=== PATIENT | female | born 1940 | race Caucasian/White ===

== ENCOUNTER 2017-06-07 17:36 | Emergency (ER) | payer MEDICARE, OTHER ==
[2017-06-07 17:48] VITALS: BP 159/86
--- NOTE | 2017-06-07 17:53 | EDM.PDOC ---
ED HPI GENERAL MEDICAL PROBLEM - General Chief Complaint: Gastrointestinal Problem Stated Complaint: BLOOD IN STOOL Time Seen by Provider: 06/07/17 17:53 Source of Information: Reports: Patient History Limitations: Reports: No Limitations - History of Present Illness INITIAL COMMENTS - FREE TEXT/NARRATIVE: 76-year-old female presents to the ED with chief complaint of bleeding per rectum since bowel movement at noon today. She states that when she wiped there was fresh blood on the toilet paper and subsequently she noticed that it continued to ooze from the rectum. She therefore had to put a pad on and she states it's not much but it's enough that it would stain her underwear. Patient states that she had a colonoscopy by Dr. Brooks in December 2014 and no abnormalities were identified at that time. She appreciates that the stools have been more constipated as of late and she's been taking prunes to soften the bowel. She states the [place] that she had a noon today was not painful or hard to pass. She's not sure she's had a problems with hemorrhoids in the past. She is not taking any blood thinners only and add baby aspirin daily. He denies any pain in her abdomen or in the rectum. Onset: Today Onset Date: 06/07/17 Onset Time: 12:00 Duration: Hour(s): (Noticed blood per rectum losing since having bowel movement at noon today.) Location: Reports: Other Quality: Reports: Other Severity: Mild (No pain mild seepage of blood per rectum forcing her to wear a pad this afternoon.) Improves with: Reports: None Worsens with: Reports: None Context: Denies: Activity, Exercise, Lifting, Sick Contact, Trauma Associated Symptoms: Reports: No Other Symptoms Treatments CAD MANAGER: Reports: Other (see below) (None.) - Related Data Allergies Allergy/AdvReac Type Severity Reaction Status Date / Time nitrofurantoin Allergy Cannot Verified 06/07/17 17:48 [From Macrobid] Remember nitrofurantoin Allergy Cannot Verified 06/07/17 17:48 macrocrystalline Remember [From Macrobid] quinapril HCl [From Accupril] Allergy Cough Verified 06/07/17 17:48 Home Meds: Home Meds Aspirin 81 mg PO DAILY 12/13/14 [History] Ca Carbonate/Vitamin D3/Vit K [Calcium + D Soft Chewable Tab] 1 tab PO BID 12/13 [History] Hydrochlorothiazide 12.5 mg PO DAILY 12/13/14 [History] Levothyroxine [Synthroid] 88 mcg PO DAILY 12/13/14 [History] Pioglitazone [Actos] 30 mg PO DAILY 12/13/14 [History] Potassium Chloride [Klor-Con 10] 10 meq PO DAILY 12/13/14 [History] atorvaSTATin [Lipitor] 20 mg PO BEDTIME 12/13/14 [History] metFORMIN [Glucophage] 500 mg PO BID 12/13/14 [History] Furosemide [Lasix] 20 mg PO DAILY 06/07/17 [History] Hydrocortisone Acetate [Anusol-Hc] 25 mg RC BEDTIME #6 supp.rect 06/07/17 [Rx] Losartan [Cozaar] 50 mg PO DAILY 06/07/17 [History] Multivitamin [Multivitamins] 1 each PO DAILY 06/07/17 [History] Past Medical History Cardiovascular History: Reports: High Cholesterol, Hypertension Genitourinary History: Reports: Urinary Incontinence (Stress and urge components.), UTI, Recurrent Musculoskeletal History: Reports: Osteoarthritis (Mostly involving her knees hips and low back.) Endocrine/Metabolic History: Reports: Diabetes, Type II (Type II diabetic controlled with oral medications and diet.), Hypothyroidism (Currently on supplementation), Obesity/BMI 30+, Osteopenia, Osteoporosis, Vitamin D Deficiency Social & Family History - Tobacco Use Smoking Status *Q: Never Smoker - Recreational Drug Use Recreational Drug Use: No Drug Use in Last 12 Months: No - Living Situation & Occupation Living situation: Reports: Occupation: Retired ED ROS GENERAL - Review of Systems Review Of Systems: See Below Constitutional: Denies: Fever, Chills, Malaise, Weakness, Fatigue, Decreased Appetite, Weight Loss HEENT: Reports: Glasses Respiratory: Reports: No Symptoms Cardiovascular: Reports: Blood Pressure Problem (Chronically), Dyspnea on Exertion, Edema (Sometimes has some fluid build up in her legs.). Denies: Chest Pain, Claudication, Orthopnea ( chronic hypertension usually well- controlled with medication) Endocrine: Reports: Fatigue, High Glucose (Is a type II diabetic. Sugars usually around around 150-200) GI/Abdominal: Reports: Constipation (Intermittent cause of constipation), Hematochezia (Started at noon today.) : Reports: Frequency, Incontinence (Both urge and stress components) Musculoskeletal: Reports: Joint Pain (These hips and low back occasional in her shoulders.) Skin: Reports: No Symptoms Neurological: Reports: No Symptoms Psychiatric: Reports: No Symptoms Hematologic/Lymphatic: Reports: No Symptoms Immunologic: Reports: No Symptoms ED EXAM, GI/ABD - Physical Exam Exam: See Below Exam Limited By: No Limitations General Appearance: Alert, WD/WN, No Apparent Distress Eyes: Bilateral: Normal Appearance Respiratory/Chest: No Respiratory Distress, Lungs Clear, Normal Breath Sounds, Chest Non-Tender Cardiovascular: Normal Peripheral Pulses, Regular Rate, Rhythm, No Edema, No Murmur, Tachycardia (Tachycardia when she first entered the room from walking. Heart rate quickly settled down to 88/m in sinus.) GI/Abdominal Exam: Abnormal Bowel Sounds, Other (Quite active bowel sounds throughout. She has a very large right upper abdominal quadrant scar where she had a combination cholecystectomy appendectomy performed.) Rectal (Female) Exam: Other (There is oozing of pinkish blood per rectum) Extremities: Normal Inspection, Normal Range of Motion, Non-Tender, No Pedal Edema, Normal Capillary Refill Neurological: Alert, Oriented, CN II-XII Intact, Normal Cognition, Normal Gait Psychiatric: Normal Affect, Normal Mood Skin Exam: Warm, Dry, Intact, Normal Color, No Rash ED ABDOMINAL/GI PROCEDURES - Additional/Other Procedure(s) Procedure(s) (Free Text): Rigid sigmoidoscopy carried out to 15 cm. At this level I encountered dark green stool with no blood evident coming from above this. Expiration on the colon on the right out revealed it to yield knee normal appearing mucosa without ulcerations. I did encounter a ruptured internal hemorrhoid at the 7 o' clock position which was actively oozing blood. There is also a small hemorrhoid at the 3 o'clock position but is not actively bleeding. Course - Vital Signs Last Recorded V/S: Last Vital Signs Temp 36.1 C 06/07/17 17:42 Pulse 107 H 06/07/17 17:42 Resp 24 H 06/07/17 17:42 BP 159/86 H 06/07/17 17:42 Pulse Ox 100 06/07/17 17:42 Orthostatic Blood Pressure [ 124/63 Standing] Orthostatic Blood Pressure [ 140/82 Sitting] Orthostatic Blood Pressure [ 137/72 Supine] - Orders/Labs/Meds Orders: Active Orders 24 hr Category Date Time Status Orthostatic Vital Signs [RC] ASDIRECTED Care 06/07/17 17:54 Active ABO/RH TYPE [BBK] Stat Lab 06/07/17 18:00 Received CBC WITH MANUAL DIFF [HEME] Stat Lab 06/07/17 18:00 Results INR,PT,PROTHROMBIN TIME [COAG] Stat Lab 06/07/17 18:00 Received PTT,PARTIAL THROMBOPLSTIN TIME [COAG] Stat Lab 06/07/17 18:00 Received Labs: Laboratory Tests 06/07/17 Range/Units 18:00 WBC 7.69 (3.98-10.04) K/mm3 RBC 3.95 L (3.98-5.22) M/mm3 Hgb 11.8 (11.2-15.7) gm/L Hct 37.0 (34.1-44.9) % MCV 93.7 (79.4-94.8) fl MCH 29.9 (25.6-32.2) pg MCHC 31.9 L (32.2-35.5) g/dl RDW Std Deviation 50.3 H (36.4-46.3) fL Plt Count 305 (182-369) K/mm3 MPV 10.4 (9.4-12.3) fl Meds: Medications Discontinued Medications Generic Name Dose Route Start Last Admin Trade Name Freq PRN Reason Stop Dose Admin Lidocaine HCl 10 ml 06/07/17 18:08 06/07/17 18:22 Xylocaine 2% Jelly MUCMEM 06/07/17 18:09 10 ml ONETIME ONE Administration - Radiology Interpretation Free Text/Narrative:: 76-year-old female presents to the ED stating that she's losing blood per rectum since a bowel movement passage at noon today. Some prunes to keep her stools soft as she's had some problems with constipation as of late. Very active bowel sounds in all 4 quadrants but no localized tenderness or peritoneal signs. Inspection of the external rectum did not show any obvious source for bleeding. There was some clots however present at the external surface. Going to therefore go ahead with a rigid sigmoidoscopy to explore the rectum and distal colon to see if I can identify a source of bleeding. Routine labs have been collected. Patient is minimally orthostatic. - Re-Assessments/Exams Free Text/Narrative Re-Assessment/Exam: 06/07/17 19:00 White count is 7.69. Hemoglobin is 11.8 with hematocrit of 37.0. MCV is normal at 93.7. Platelet count is normal at 305,000. Rigid sigmoidoscopy done up to 15 cm revealed no blood coming from above this level but only dark green colored stool. The rectal mucosa appears healthy otherwise until we get down to the anal verge which shows a ruptured internal hemorrhoid at the 7 o' clock position. It appears that it's ruptured as it has a linear-like 1 cm laceration that is still oozing slight amount of bright red blood. Treatment will be conservative with continued keeping her stools soft with prunes daily. Will give her Anusol HC suppository to place once daily at bedtime for the next 6 days. Follow up if bleeding not improved after 72 hours time.. 06/07/17 19:23 and was waiting for the chemistry within the lab for me that the specimen was hemolyzed. To obtain a CMP they would have to come back and redraw the patient. Since I found the source of bleeding and found it necessary to pursue the CMP once again. Therefore it will be canceled. Departure - Departure Time of Disposition: 18:55 Disposition: Home, Self-Care 01 Condition: Fair Clinical Impression: Rectal bleeding, Internal bleeding hemorrhoids - Discharge Information Prescriptions: Hydrocortisone Acetate [Anusol-Hc] 25 mg RC BEDTIME #6 supp.rect Instructions: Hemorrhoids, [id number] Referrals: Ashley Back MD [Primary Care Provider] - Forms: ED Department Discharge Additional Instructions: Evaluation the emergency room tonight due to persistent oozing of blood per rectum since bowel movement at noon today. No obvious source of bleeding was evident on external examination. Rigid sigmoidoscopy was carried out to 15 cm before encountered a good deal of dark green stool with no evidence of blood coming from above this. Identified a ruptured internal hemorrhoid at the 7 o' clock position which was actively bleeding. Therefore treatment is to continue to keep the stools as soft as possible for the next 10 days. Suggest a rectal suppository called Anusol HC every night at bedtime for the next 6 nights. This will allow the hemorrhoid to heal. You are prone to this problem happened again in the future but at this time I do not see evidence that you would require any surgical management. Will likely see blood in the stool at least for the next 2 bowel movements but after that it should pretty well clear up. Follow-up with personal physician if bleeding per rectum continues. - My Orders Last 24 Hours: My Active Orders 06/07/17 17:54 Orthostatic Vital Signs [RC] ASDIRECTED 06/07/17 18:00 ABO/RH TYPE [BBK] Stat CBC WITH MANUAL DIFF [HEME] Stat INR,PT,PROTHROMBIN TIME [COAG] Stat PTT,PARTIAL THROMBOPLSTIN TIME [COAG] Stat - Assessment/Plan Last 24 Hours: My Active Orders 06/07/17 17:54 Orthostatic Vital Signs [RC] ASDIRECTED 06/07/17 18:00 ABO/RH TYPE [BBK] Stat CBC WITH MANUAL DIFF [HEME] Stat INR,PT,PROTHROMBIN TIME [COAG] Stat PTT,PARTIAL THROMBOPLSTIN TIME [COAG] Stat
[2017-06-07] MEDS ORDERED: Lidocaine 2% Jelly 10 ML Urojet MUCMEM ONE (18:08)
== END 2017-06-07 19:05 | disposition home or self-care (01) ==
LOC: JD.ED 17:36
DX: K64.8 Other hemorrhoids (principal); I10 Essential (primary) hypertension; E78.00 Pure hypercholesterolemia, unspecified; E11.9 Type 2 diabetes mellitus without complications; Z88.8 Allergy status to other drugs, medicaments and biological substances; Z88.1 Allergy status to other antibiotic agents; Z79.82 Long term (current) use of aspirin; Z79.899 Other long term (current) drug therapy; Z79.84 Long term (current) use of oral hypoglycemic drugs
CPT/HCPCS: 36415; 45300; 45330; 85025; 85610; 85730; 86900; 86901; 99282-25; 99284-25

== ENCOUNTER 2018-06-17 11:53 | Inpatient (IN) | payer MEDICARE, OTHER ==
[2018-06-17] MEDS ORDERED: Furosemide 40 MG/4 ML VIAL IVPUSH ONE (12:20)
[2018-06-17] MEDS ORDERED: Sodium Chloride 0.9% 10 ML Syringe FLUSH PRN (12:20)
--- NOTE | 2018-06-17 13:03 | CR ---
Chest: Portable view of the chest was obtained. Comparison: No prior chest x-ray. Heart size and mediastinum are within normal limits for portable technique. Elevated right hemidiaphragm is seen. Lungs are clear with no acute parenchymal change. Bony structures are grossly intact. Impression: 1. Incidental findings. Nothing acute is appreciated. Diagnostic code #2
--- NOTE | 2018-06-17 13:53 | EDM.PDOC ---
ED HPI GENERAL MEDICAL PROBLEM - General Chief Complaint: Respiratory Problem Stated Complaint: SHORTNESS OF BREATHE Time Seen by Provider: 06/17/18 12:12 Source of Information: Reports: Patient, RN Notes Reviewed - History of Present Illness INITIAL COMMENTS - FREE TEXT/NARRATIVE: 77 year old female with worsening dyspnea over the past week, especially the past few days, has had severe dyspnea with exertion the last few days and also has had orthopnea. No chest pain other than the discomfort of feeling short of breath. Has not been coughing. Had not taken her morning lasix today because she was trying to run some errands, became to short of breath with walking, went to walk in clinic, referred here for eval and treatment. Used to take to lasix and hctz and now just taking the hctz. - Related Data Allergies Allergy/AdvReac Type Severity Reaction Status Date / Time nitrofurantoin Allergy Cannot Verified 06/17/18 12:12 [From Macrobid] Remember nitrofurantoin Allergy Cannot Verified 06/17/18 12:12 macrocrystalline Remember [From Macrobid] quinapril HCl [From Accupril] AdvReac Cough Verified 06/17/18 12:12 Home Meds: Home Meds Aspirin 81 mg PO DAILY 12/13/14 [History] Ca Carbonate/Vitamin D3/Vit K [Calcium + D Soft Chewable Tab] 1 tab PO BID 12/13 [History] Levothyroxine [Synthroid] 88 mcg PO DAILY 12/13/14 [History] Potassium Chloride [Klor-Con 10] 10 meq PO DAILY 12/13/14 [History] atorvaSTATin [Lipitor] 20 mg PO BEDTIME 12/13/14 [History] metFORMIN [Glucophage] 500 mg PO BID 12/13/14 [History] Furosemide [Lasix] 20 mg PO DAILY 06/07/17 [History] Losartan [Cozaar] 50 mg PO DAILY 06/07/17 [History] Multivitamin [Multivitamins] 1 each PO DAILY 06/07/17 [History] Past Medical History HEENT History: Reports: Cataract, Impaired Vision Cardiovascular History: Reports: High Cholesterol, Hypertension Genitourinary History: Reports: Urinary Incontinence, UTI, Recurrent Musculoskeletal History: Reports: Osteoarthritis Endocrine/Metabolic History: Reports: Diabetes, Type II, Hypothyroidism, Obesity /BMI 30+, Osteopenia, Osteoporosis, Vitamin D Deficiency - Past Surgical History HEENT Surgical History: Reports: Cataract Surgery GI Surgical History: Reports: Appendectomy, Cholecystectomy Social & Family History - Family History Family Medical History: Noncontributory - Tobacco Use Smoking Status *Q: Never Smoker - Caffeine Use Caffeine Use: Reports: Coffee - Living Situation & Occupation Living situation: Reports: Occupation: Retired ED ROS GENERAL - Review of Systems Review Of Systems: See Below Constitutional: Denies: Fever, Chills HEENT: Denies: Sinus Problem, Throat Pain Respiratory: Reports: Shortness of Breath. Denies: Wheezing, Cough Cardiovascular: Reports: Dyspnea on Exertion, Orthopnea. Denies: Chest Pain GI/Abdominal: Denies: Abdominal Pain, Nausea, Vomiting Musculoskeletal: Denies: Neck Pain, Shoulder Pain, Arm Pain, Back Pain Skin: Reports: Erythema (chronic erythema L lower lat leg, hx prior ulcer) ED EXAM, GENERAL - Physical Exam Exam: See Below General Appearance: Alert, Mild Distress Eye Exam: Bilateral Eye: PERRL Throat/Mouth: Normal Inspection, Normal Oropharynx Head: Atraumatic. No: Facial Swelling Neck: Supple, Full Range of Motion, Other (no JVD) Respiratory/Chest: Respiratory Distress, Rales (bilat). No: Rhonchi, Wheezing Cardiovascular: Irregularly Irregular GI/Abdominal: Soft, Non-Tender Back Exam: No: CVA Tenderness (L), CVA Tenderness (R) Extremities: Pedal Edema (severe bilat). No: Leg Pain, Increased Warmth Neurological: Alert, Oriented, No Motor/Sensory Deficits Skin Exam: Warm, Dry, Normal Color EKG INTERPRETATION EKG Date: 06/17/18 Rhythm: A-Fib (one PVC noted) Rate (Beats/Min): 95 [place]: Normal P-Wave: Absent QRS: Other (q waves inf. leads) ST-T: Normal Course - Vital Signs Last Recorded V/S: Last Vital Signs Temp 98.5 F 06/17/18 20:00 Pulse 99 06/17/18 20:17 Resp 20 06/17/18 20:00 BP 133/84 06/17/18 20:17 Pulse Ox 97 06/17/18 20:00 - Orders/Labs/Meds Orders: Active Orders 24 hr Category Date Time Status Oxygen Therapy [RC] ASDIRECTED Care 06/17/18 12:20 Active Peripheral IV Care [RC] Q2HR Care 06/17/18 12:20 Active Sodium Chloride 0.9% [Saline Flush] Med 06/17/18 12:20 Active 10 ml FLUSH ASDIRECTED PRN Peripheral IV Insertion Adult [OM.PC] Stat Oth 06/17/18 12:20 Ordered Medication Orders Aspirin (Aspirin) 81 mg PO DAILY [facility] Dextrose/Water (Dextrose 50% In Water) 50 ml IVPUSH ASDIRECTED PRN PRN Reason: Hypoglycemia Diltiazem HCl 125 mg/ Sodium (Chloride) 125 mls @ 10 mls/hr IV TITRATE ROXIE; Protocol Last Titration: 06/17/18 20:16 Dose: 7.5 mg/hr, 7.5 mls/hr Titration: 06/17/18 18:58 Dose: 3 mg/hr, 3 mls/hr Titration: 06/17/18 17:50 Dose: 5 mg/hr, 5 mls/hr Admin: 06/17/18 15:29 Dose: 10 mg/hr, 10 mls/hr Furosemide 100 mg/ Sodium (Chloride) 100 mls @ 4 mls/hr IV TITRATE ROXIE Stop: 06/19/18 18:46 Last Admin: 06/17/18 20:17 Dose: 4 mg/hr, 4 mls/hr Insulin Human Lispro (Humalog) 0 unit SUBCUT QIDACANDBED [facility]; Protocol Last Admin: 06/17/18 21:41 Dose: Not Given Levothyroxine Sodium (Synthroid) 88 mcg PO DAILY [facility] Metoprolol Tartrate (Lopressor) 5 mg IVPUSH Q6H PRN PRN Reason: HR>100 Metoprolol Tartrate (Lopressor) 25 mg PO Q12H [facility] Last Admin: 06/17/18 20:17 Dose: 25 mg Simvastatin (Zocor) 20 mg PO BEDTIME [facility] Last Admin: 06/17/18 20:17 Dose: 20 mg Sodium Chloride (Saline Flush) 10 ml FLUSH ASDIRECTED PRN PRN Reason: Keep Vein Open Last Admin: 06/17/18 12:35 Dose: 10 ml Labs: Laboratory Tests 06/17/18 06/17/18 06/17/18 Range/Units 12:35 12:35 12:35 WBC 8.19 (3.98-10.04) K/mm3 RBC 4.12 (3.98-5.22) M/mm3 Hgb 12.3 (11.2-15.7) gm/L Hct 38.5 (34.1-44.9) % MCV 93.4 (79.4-94.8) fl MCH 29.9 (25.6-32.2) pg MCHC 31.9 L (32.2-35.5) g/dl RDW Std Deviation 48.6 H (36.4-46.3) fL Plt Count 240 (182-369) K/mm3 MPV 10.4 (9.4-12.3) fl Neut % (Auto) 75.3 H (34.0-71.1) % Lymph % (Auto) 14.0 L (19.3-51.7) % [place] % (Auto) 6.7 (4.7-12.5) % Eos % (Auto) 3.1 (0.7-5.8) Baso % (Auto) 0.5 (0.1-1.2) % Neut # (Auto) 6.17 H (1.56-6.13) K/mm3 Lymph # (Auto) 1.15 L (1.18-3.74) K/mm3 [place] # (Auto) 0.55 H (0.24-0.36) K/mm3 Eos # (Auto) 0.25 (0.04-0.36) K/mm3 Baso # (Auto) 0.04 (0.01-0.08) K/mm3 Sodium 144 (136-145) mEq/L Potassium 5.3 H (3.5-5.1) mEq/L Chloride 103 (98-107) mEq/L Carbon Dioxide 28 (21-32) mEq/L Anion Gap 18.3 H (5-15) BUN 16 (7-18) mg/dL Creatinine 1.3 H (0.55-1.02) mg/dL Est Cr Clr Drug Dosing 25.62 mL/min Estimated GFR (MDRD) 40 (>60) mL/min BUN/Creatinine Ratio 12.3 L (14-18) Glucose 122 H (83-115) mg/dL Calcium 9.7 (8.5-10.1) mg/dL Total Bilirubin 0.6 (0.2-1.0) mg/dL AST 46 H (15-37) U/L ALT 35 (14-59) U/L Alkaline Phosphatase 73 (46-116) U/L Troponin I < 0.017 (0.00-0.056) ng/mL NT-Pro-B Natriuret Pep 1498 H (0-450) pg/mL Total Protein 7.3 (6.4-8.2) g/dl Albumin 3.6 (3.4-5.0) g/dl Globulin 3.7 gm/dL Albumin/Globulin Ratio 1.0 (1-2) Meds: Medications Generic Name Dose Route Start Last Admin Trade Name Freq PRN Reason Stop Dose Admin Aspirin 81 mg 06/18/18 09:00 Aspirin PO DAILY ROXIE Dextrose/Water 50 ml 06/17/18 18:48 Dextrose 50% In Water IVPUSH ASDIRECTED PRN Hypoglycemia Diltiazem HCl 125 mg/ Sodium 125 mls @ 10 mls/hr 06/17/18 15:00 06/17/18 20: 16 Chloride IV 7.5 mg/hr TITRATE ROXIE 7.5 mls/hr Titration Protocol 10 MG/HR Furosemide 100 mg/ Sodium 100 mls @ 4 mls/hr 06/17/18 18:45 06/17/18 20:17 Chloride IV 06/19/18 18:46 4 mg/hr TITRATE ROXIE 4 mls/hr Administration 4 MG/HR Insulin Human Lispro 0 unit 06/17/18 22:00 06/17/18 21:41 Humalog SUBCUT Not Given QIDACANDBED [facility] Protocol Levothyroxine Sodium 88 mcg 06/18/18 09:00 Synthroid PO DAILY ROXIE Metoprolol Tartrate 5 mg 06/17/18 18:50 Lopressor IVPUSH Q6H PRN HR>100 Metoprolol Tartrate 25 mg 06/17/18 19:00 06/17/18 20:17 Lopressor PO 25 mg Q12H ROXIE Administration Simvastatin 20 mg 06/17/18 21:00 06/17/18 20:17 Zocor PO 20 mg BEDTIME ROXIE Administration Sodium Chloride 10 ml 06/17/18 12:20 06/17/18 12:35 Saline Flush FLUSH 10 ml ASDIRECTED PRN Administration Keep Vein Open Discontinued Medications Generic Name Dose Route Start Last Admin Trade Name Freq PRN Reason Stop Dose Admin Furosemide 40 mg 06/17/18 12:20 06/17/18 12:36 Lasix IVPUSH 06/17/18 12:21 40 mg NOW ONE Administration Metformin HCl 500 mg 06/17/18 21:00 Glucophage PO BID ROXIE - Re-Assessments/Exams Free Text/Narrative Re-Assessment/Exam: 06/17/18 21:56 patient was given lasix 40 mg IV after arrival, CXR shows marked pul congestion. leg extremely swollen. She had been on lasix and HCTZ in the past and now just on lasix 20 mg daily. sats 86 % on arrival to ED, improved to mid 90's with 1 liter NC at reset. We did try ambulate her after labs back, initial lasix given and sats dropped to mid to low 80's. Patient admitted on diltiazam drip. Departure - Departure Time of Disposition: 22:01 Disposition: Admitted As Inpatient 65 Condition: Serious Clinical Impression: Hypoxia, Atrial fibrillation with RVR Congestive heart failure Qualifiers: Heart failure type: unspecified Heart failure chronicity: acute Qualified Code( s): I50.9 - Heart failure, unspecified - Discharge Information ED Communication - Discussed Case With (1) Discussed Case With (1): Admitting Provider (Dr Palencia, decision to admit at [facility] 14:45) - My Orders Last 24 Hours: My Active Orders 06/17/18 12:20 Oxygen Therapy [RC] ASDIRECTED Peripheral IV Care [RC] Q2HR Sodium Chloride 0.9% [Saline Flush] 10 ml FLUSH ASDIRECTED PRN Peripheral IV Insertion Adult [OM.PC] Stat - Assessment/Plan Last 24 Hours: My Active Orders 06/17/18 12:20 Oxygen Therapy [RC] ASDIRECTED Peripheral IV Care [RC] Q2HR Sodium Chloride 0.9% [Saline Flush] 10 ml FLUSH ASDIRECTED PRN Peripheral IV Insertion Adult [OM.PC] Stat
[2018-06-17] MEDS ORDERED: Diltiazem 125 MG in Sodium Chloride 0.9% 100 ML IV SCH (15:00)
[2018-06-17] MEDS ORDERED: 50% Dextrose in Water 50 ML Syringe IVPUSH PRN (18:48)
[2018-06-17] MEDS ORDERED: Metoprolol Tartrate 5 MG/5 ML SDV IVPUSH PRN (18:50)
--- NOTE | 2018-06-17 19:15 | PCM.HP ---
H&P History of Present Illness - General Date of Service: 06/17/18 Admit Problem/Dx: Admission Diagnosis/Problem Admission Diagnosis/Problem Congestive heart failure Source of Information: Patient, Provider - History of Present Illness Initial Comments - Free Text/Narative: 77 year old female with progressive SOB, associated with LE swelling. Denies CP , palpitations; had been reportedly seen at the [facility]. Has not seen her PCP recently. Has never seen a cariologist or aware of a diagnosis of CHF or A fib. Will be admitted to the ICU on a Cardizem drip. Onset of Symptoms: Reports: Unknown/Unsure Duration of Symptoms: Reports: Week(s): Location: Reports: Chest Severity: Moderate Improves with: Reports: Medication Worsens with: Reports: Movement Associated Symptoms: Reports: Shortness of Breath, Weakness - Related Data Allergies/Adverse Reactions: Allergies Allergy/AdvReac Type Severity Reaction Status Date / Time nitrofurantoin Allergy Cannot Verified 06/17/18 12:12 [From Macrobid] Remember nitrofurantoin Allergy Cannot Verified 06/17/18 12:12 macrocrystalline Remember [From Macrobid] quinapril HCl [From Accupril] AdvReac Cough Verified 06/17/18 12:12 Home Medications: Home Meds Aspirin 81 mg PO DAILY 12/13/14 [History] Ca Carbonate/Vitamin D3/Vit K [Calcium + D Soft Chewable Tab] 1 tab PO BID 12/13 [History] Levothyroxine [Synthroid] 88 mcg PO DAILY 12/13/14 [History] Potassium Chloride [Klor-Con 10] 10 meq PO DAILY 12/13/14 [History] atorvaSTATin [Lipitor] 20 mg PO BEDTIME 12/13/14 [History] metFORMIN [Glucophage] 500 mg PO BID 12/13/14 [History] Furosemide [Lasix] 20 mg PO DAILY 06/07/17 [History] Losartan [Cozaar] 50 mg PO DAILY 06/07/17 [History] Multivitamin [Multivitamins] 1 each PO DAILY 06/07/17 [History] Past Medical History HEENT History: Reports: Cataract, Impaired Vision Cardiovascular History: Reports: High Cholesterol, Hypertension Genitourinary History: Reports: Urinary Incontinence, UTI, Recurrent Musculoskeletal History: Reports: Osteoarthritis Endocrine/Metabolic History: Reports: Diabetes, Type II, Hypothyroidism, Obesity /BMI 30+, Osteopenia, Osteoporosis, Vitamin D Deficiency - Past Surgical History HEENT Surgical History: Reports: Cataract Surgery GI Surgical History: Reports: Appendectomy, Cholecystectomy Social & Family History - Family History Family Medical History: Noncontributory - Tobacco Use Smoking Status *Q: Never Smoker - Caffeine Use Caffeine Use: Reports: Coffee - Living Situation & Occupation Living situation: Reports: Occupation: Retired H&P Review of Systems - Review of Systems: Review Of Systems: See Below General: Reports: Fatigue HEENT: Reports: No Symptoms Pulmonary: Reports: Shortness of Breath Cardiovascular: Reports: Lightheadedness Gastrointestinal: Reports: No Symptoms Genitourinary: Reports: No Symptoms Musculoskeletal: Reports: No Symptoms Skin: Reports: No Symptoms Psychiatric: Reports: No Symptoms Neurological: Reports: Dizziness Hematologic/Lymphatic: Reports: No Symptoms Immunologic: Reports: No Symptoms Exam - Exam Exam: See Below - Vital Signs Vital Signs: Last Vital Signs Temp 36.4 C 06/17/18 12:06 Pulse 120 H 06/17/18 12:06 Resp 16 06/17/18 12:06 BP 148/83 H 06/17/18 12:06 Pulse Ox 86 L 06/17/18 12:06 Weight: 95.254 kg - Exam Quality Assessment: Supplemental Oxygen General: Alert, Oriented, Cooperative HEENT: Conjunctiva Clear, EOMI, Nares Patent, Normal Nasal Septum, Pupils Equal , Pupils Reactive, PERRLA Neck: Trachea Midline Lungs: Normal Respiratory Effort Cardiovascular: Regular Rate, Irregular Rhythm GI/Abdominal Exam: Normal Bowel Sounds, Soft, Non-Tender, No Organomegaly, No Distention (Female) Exam: Deferred Rectal (Female) Exam: Deferred Back Exam: Normal Inspection Extremities: Normal Inspection, Non-Tender, Normal Capillary Refill Skin: Warm Neurological: Cranial Nerves Intact Neuro Extensive - Mental Status: Alert, Oriented x3, Normal Mood/Affect, Normal Cognition, Memory Intact Neuro Extensive - Motor, Sensory, Reflexes: CN II-XII Intact Psychiatric: Alert, Normal Affect, Normal Mood - Patient Data Lab Results Last 24 hrs: Laboratory Results - last 24 hr 06/17/18 06/17/18 06/17/18 Range/Units 12:35 12:35 12:35 WBC 8.19 (3.98-10.04) K/mm3 RBC 4.12 (3.98-5.22) M/mm3 Hgb 12.3 (11.2-15.7) gm/L Hct 38.5 (34.1-44.9) % MCV 93.4 (79.4-94.8) fl MCH 29.9 (25.6-32.2) pg MCHC 31.9 L (32.2-35.5) g/dl RDW Std Deviation 48.6 H (36.4-46.3) fL Plt Count 240 (182-369) K/mm3 MPV 10.4 (9.4-12.3) fl Neut % (Auto) 75.3 H (34.0-71.1) % Lymph % (Auto) 14.0 L (19.3-51.7) % [place] % (Auto) 6.7 (4.7-12.5) % Eos % (Auto) 3.1 (0.7-5.8) Baso % (Auto) 0.5 (0.1-1.2) % Neut # (Auto) 6.17 H (1.56-6.13) K/mm3 Lymph # (Auto) 1.15 L (1.18-3.74) K/mm3 [place] # (Auto) 0.55 H (0.24-0.36) K/mm3 Eos # (Auto) 0.25 (0.04-0.36) K/mm3 Baso # (Auto) 0.04 (0.01-0.08) K/mm3 Sodium 144 (136-145) mEq/L Potassium 5.3 H (3.5-5.1) mEq/L Chloride 103 (98-107) mEq/L Carbon Dioxide 28 (21-32) mEq/L Anion Gap 18.3 H (5-15) BUN 16 (7-18) mg/dL Creatinine 1.3 H (0.55-1.02) mg/dL Est Cr Clr Drug Dosing 25.62 mL/min Estimated GFR (MDRD) 40 (>60) mL/min BUN/Creatinine Ratio 12.3 L (14-18) Glucose 122 H (83-115) mg/dL Calcium 9.7 (8.5-10.1) mg/dL Total Bilirubin 0.6 (0.2-1.0) mg/dL AST 46 H (15-37) U/L ALT 35 (14-59) U/L Alkaline Phosphatase 73 (46-116) U/L Troponin I < 0.017 (0.00-0.056) ng/mL NT-Pro-B Natriuret Pep 1498 H (0-450) pg/mL Total Protein 7.3 (6.4-8.2) g/dl Albumin 3.6 (3.4-5.0) g/dl Globulin 3.7 gm/dL Albumin/Globulin Ratio 1.0 (1-2) Urine Color (Yellow) Urine Appearance (Clear) Urine pH (5.0-8.0) Ur Specific [place] (1.005-1.030) Urine Protein (Negative) Urine Glucose (UA) (Negative) Urine Ketones (Negative) Urine Occult Blood (Negative) Urine Nitrite (Negative) Urine Bilirubin (Negative) Urine Urobilinogen (0.2-1.0) Ur Leukocyte Esterase (Negative) Urine RBC (0-5) /hpf Urine WBC (0-5) /hpf Ur Epithelial Cells (0-5) /hpf Urine Bacteria (FEW) /hpf Urine Mucus (FEW) /hpf 06/17/18 Range/Units 16:00 WBC (3.98-10.04) K/mm3 RBC (3.98-5.22) M/mm3 Hgb (11.2-15.7) gm/L Hct (34.1-44.9) % MCV (79.4-94.8) fl MCH (25.6-32.2) pg MCHC (32.2-35.5) g/dl RDW Std Deviation (36.4-46.3) fL Plt Count (182-369) K/mm3 MPV (9.4-12.3) fl Neut % (Auto) (34.0-71.1) % Lymph % (Auto) (19.3-51.7) % [place] % (Auto) (4.7-12.5) % Eos % (Auto) (0.7-5.8) Baso % (Auto) (0.1-1.2) % Neut # (Auto) (1.56-6.13) K/mm3 Lymph # (Auto) (1.18-3.74) K/mm3 [place] # (Auto) (0.24-0.36) K/mm3 Eos # (Auto) (0.04-0.36) K/mm3 Baso # (Auto) (0.01-0.08) K/mm3 Sodium (136-145) mEq/L Potassium (3.5-5.1) mEq/L Chloride (98-107) mEq/L Carbon Dioxide (21-32) mEq/L Anion Gap (5-15) BUN (7-18) mg/dL Creatinine (0.55-1.02) mg/dL Est Cr Clr Drug Dosing mL/min Estimated GFR (MDRD) (>60) mL/min BUN/Creatinine Ratio (14-18) Glucose (83-115) mg/dL Calcium (8.5-10.1) mg/dL Total Bilirubin (0.2-1.0) mg/dL AST (15-37) U/L ALT (14-59) U/L Alkaline Phosphatase (46-116) U/L Troponin I (0.00-0.056) ng/mL NT-Pro-B Natriuret Pep (0-450) pg/mL Total Protein (6.4-8.2) g/dl Albumin (3.4-5.0) g/dl Globulin gm/dL Albumin/Globulin Ratio (1-2) Urine Color Yellow (Yellow) Urine Appearance Clear (Clear) Urine pH 6.5 (5.0-8.0) Ur Specific [place] 1.010 (1.005-1.030) Urine Protein Negative (Negative) Urine Glucose (UA) Negative (Negative) Urine Ketones Negative (Negative) Urine Occult Blood Negative (Negative) Urine Nitrite Negative (Negative) Urine Bilirubin Negative (Negative) Urine Urobilinogen 0.2 (0.2-1.0) Ur Leukocyte Esterase Negative (Negative) Urine RBC 0-5 (0-5) /hpf Urine WBC 0-5 (0-5) /hpf Ur Epithelial Cells 0-5 (0-5) /hpf Urine Bacteria Few (FEW) /hpf Urine Mucus Not seen (FEW) /hpf Result Diagrams: 06/18/18 06:05 06/18/18 06:05 - Problem List (1) Congestive heart failure (CHF) SNOMED Code(s): 77015759 ICD Code: I50.9 - HEART FAILURE, UNSPECIFIED Status: Acute Current Visit : Yes Qualifiers: Heart failure type: unspecified Heart failure chronicity: acute Qualified Code(s): I50.9 - Heart failure, unspecified Problem List Initiated/Reviewed/Updated: Yes Orders Last 24hrs: Active Orders 24 hr Category Date Time Status Admission Status [Patient Status] [ADT] Routine ADT 06/17/18 14:57 Active Accu Check [Blood Glucose Check, Bedside] [RC] Care 06/17/18 18:47 Ordered QIDACANDBED Insert Guevara Catheter [Insert Urinary Catheter] [OM.PC] Care 06/17/18 16:00 Ordered Q24H Oxygen Therapy [RC] ASDIRECTED Care 06/17/18 12:20 Active Peripheral IV Care [RC] Q2HR Care 06/17/18 12:20 Active Urinary Catheter Assessment [RC] Q4HR Care 06/17/18 15:47 Active Echo Comp wo Cont [US] Routine Exams 06/18/18 10:00 Ordered BMP [BASIC METABOLIC PANEL,BMP] [CHEM] DAILY Lab 06/18/18 05:00 Ordered BMP [BASIC METABOLIC PANEL,BMP] [CHEM] DAILY Lab 06/19/18 05:00 Ordered BMP [BASIC METABOLIC PANEL,BMP] [CHEM] DAILY Lab 06/20/18 05:00 Ordered BMP [BASIC METABOLIC PANEL,BMP] [CHEM] DAILY Lab 06/21/18 05:00 Ordered BMP [BASIC METABOLIC PANEL,BMP] [CHEM] DAILY Lab 06/22/18 05:00 Ordered CBC WITH AUTO DIFF [HEME] DAILY Lab 06/18/18 05:00 Ordered CBC WITH AUTO DIFF [HEME] DAILY Lab 06/19/18 05:00 Ordered CBC WITH AUTO DIFF [HEME] DAILY Lab 06/20/18 05:00 Ordered CBC WITH AUTO DIFF [HEME] DAILY Lab 06/21/18 05:00 Ordered CBC WITH AUTO DIFF [HEME] DAILY Lab 06/22/18 05:00 Ordered CRP [C-REACTIVE PROTEIN] [CHEM] DAILY Lab 06/18/18 05:00 Ordered CRP [C-REACTIVE PROTEIN] [CHEM] DAILY Lab 06/19/18 05:00 Ordered CRP [C-REACTIVE PROTEIN] [CHEM] DAILY Lab 06/20/18 05:00 Ordered CRP [C-REACTIVE PROTEIN] [CHEM] DAILY Lab 06/21/18 05:00 Ordered CRP [C-REACTIVE PROTEIN] [CHEM] DAILY Lab 06/22/18 05:00 Ordered GLYCOSYLATED HEMOGLOBIN,HGBA1C [CHEM] Routine Lab 06/18/18 05:00 Ordered LIPID PANEL [CHEM] Routine Lab 06/18/18 05:00 Ordered MAGNESIUM [CHEM] DAILY Lab 06/18/18 05:00 Ordered MAGNESIUM [CHEM] DAILY Lab 06/19/18 05:00 Ordered MAGNESIUM [CHEM] DAILY Lab 06/20/18 05:00 Ordered MAGNESIUM [CHEM] DAILY Lab 06/21/18 05:00 Ordered MAGNESIUM [CHEM] DAILY Lab 06/22/18 05:00 Ordered PRO B-TYPE NATRIUR PEPT,BNPPRO [CHEM] DAILY Lab 06/18/18 05:00 Ordered PRO B-TYPE NATRIUR PEPT,BNPPRO [CHEM] DAILY Lab 06/19/18 05:00 Ordered PRO B-TYPE NATRIUR PEPT,BNPPRO [CHEM] DAILY Lab 06/20/18 05:00 Ordered PRO B-TYPE NATRIUR PEPT,BNPPRO [CHEM] DAILY Lab 06/21/18 05:00 Ordered PRO B-TYPE NATRIUR PEPT,BNPPRO [CHEM] DAILY Lab 06/22/18 05:00 Ordered TSH [CHEM] Routine Lab 06/18/18 05:00 Ordered Aspirin Med 06/18/18 09:00 Ordered 81 mg PO DAILY Dextrose 50% in Water Med 06/17/18 18:48 Ordered 50 ml IVPUSH ASDIRECTED PRN Diltiazem 125 mg Med 06/17/18 15:00 Active Sodium Chloride 0.9% [Normal Saline] 100 ml IV TITRATE Furosemide [Lasix] 100 mg Med 06/17/18 18:45 Ordered Sodium Chloride 0.9% [Normal Saline] 90 ml IV TITRATE Insulin Lispro [HumaLOG] Med 06/17/18 22:00 Ordered See Protocol SUBCUT QIDACANDBED Levothyroxine [Synthroid] Med 06/18/18 09:00 Ordered 88 mcg PO DAILY Metoprolol Tartrate [Lopressor] Med 06/17/18 19:00 Ordered 25 mg PO Q12H Metoprolol Tartrate [Lopressor] Med 06/17/18 18:50 Ordered 5 mg IVPUSH Q6H PRN Sodium Chloride 0.9% [Saline Flush] Med 06/17/18 12:20 Active 10 ml FLUSH ASDIRECTED PRN atorvaSTATin Med 06/17/18 21:00 Ordered 20 mg PO BEDTIME metFORMIN [Glucophage] Med 06/17/18 21:00 Ordered 500 mg PO BID Peripheral IV Insertion Adult [OM.PC] Stat Oth 06/17/18 12:20 Ordered Medication Orders Aspirin (Aspirin) 81 mg PO DAILY ROXIE Dextrose/Water (Dextrose 50% In Water) 50 ml IVPUSH ASDIRECTED PRN PRN Reason: Hypoglycemia Diltiazem HCl 125 mg/ Sodium (Chloride) 125 mls @ 10 mls/hr IV TITRATE ROXIE; Protocol Last Titration: 06/17/18 18:58 Dose: 3 mg/hr, 3 mls/hr Titration: 06/17/18 17:50 Dose: 5 mg/hr, 5 mls/hr Admin: 06/17/18 15:29 Dose: 10 mg/hr, 10 mls/hr Furosemide 100 mg/ Sodium (Chloride) 100 mls @ 4 mls/hr IV TITRATE [facility]IE Stop: 06/19/18 18:46 Insulin Human Lispro (Humalog) 0 unit SUBCUT QIDACANDBED [facility]OXIE; Protocol Levothyroxine Sodium (Synthroid) 88 mcg PO DAILY [facility]OXIE Metformin HCl (Glucophage) 500 mg PO BID [facility]IE Metoprolol Tartrate (Lopressor) 5 mg IVPUSH Q6H PRN PRN Reason: HR>100 Metoprolol Tartrate (Lopressor) 25 mg PO Q12H [facility] Simvastatin (Zocor) 20 mg PO BEDTIME ROXIE Sodium Chloride (Saline Flush) 10 ml FLUSH ASDIRECTED PRN PRN Reason: Keep Vein Open Last Admin: 06/17/18 12:35 Dose: 10 ml Assessment/Plan Comment:: Impression: Acutely decompensated heart failure "New onset" atrial fib Chronic HTN HLD DM type 2 Obesity, class 3 Hypothyroidism Plan: Diurese Home meds BB/Ca channel blockers Daily labs Ischemic/Infectious cause of HF Dietary consults Consult PT/OT/CM DVT/GI prophylaxis
[2018-06-17] MEDS: Simvastatin 20 MG Tab PO SCH (20:17)
[2018-06-17] MEDS: Metoprolol Tartrate 25 MG Tab PO SCH (20:17)
[2018-06-17] MEDS: Furosemide 100 MG in Sodium Chloride 0.9% 90 ML IV SCH (20:17)
[2018-06-17] MEDS ORDERED: metFORMIN 500 MG Tab PO SCH (21:00)
[2018-06-17] MEDS: Insulin Lispro 100 UNIT/ML 10 ML VIAL SUBCUT SCH (21:41)
[2018-06-18] MEDS: Insulin Lispro 100 UNIT/ML 10 ML VIAL SUBCUT SCH ×5 (06:14→21:34)
[2018-06-18] MEDS: Metoprolol Tartrate 25 MG Tab PO SCH ×2 (06:15→18:39)
[2018-06-18] MEDS: Levothyroxine 88 MCG Tab PO SCH (08:31)
[2018-06-18] MEDS: Aspirin 81 MG Tab.Chew PO SCH (08:31)
[2018-06-18 08:37] LABS: HEMOGLOBIN A1C 7.7 % (4.50-6.20)
[2018-06-18] MEDS ORDERED: Metoprolol Tartrate 25 MG Tab PO ONE (11:00)
[2018-06-18] MEDS ORDERED: Magnesium Sulfate/Water 4 GM in Premix Bag 1 BAG IV ONE ×2 (11:00→21:00)
--- NOTE | 2018-06-18 15:45 | PCM.PN ---
- General Info Date of Service: 06/18/18 Functional Status: Reports: Tolerating Diet, Urinating - Review of Systems General: Reports: Weakness HEENT: Reports: No Symptoms Pulmonary: Reports: Shortness of Breath Cardiovascular: Reports: No Symptoms Gastrointestinal: Reports: No Symptoms Genitourinary: Reports: No Symptoms Musculoskeletal: Reports: No Symptoms Skin: Reports: No Symptoms Neurological: Reports: No Symptoms Psychiatric: Reports: No Symptoms - Patient Data Vitals - Most Recent: Last Vital Signs Temp 36.6 C 06/18/18 12:00 Pulse 86 06/18/18 12:00 Resp 21 H 06/18/18 12:00 BP 124/76 06/18/18 12:00 Pulse Ox 95 06/18/18 12:00 Weight - Most Recent: 95.254 kg I&O - Last 24 Hours: Intake & Output 06/18/18 06/18/18 06/18/18 06:59 14:59 22:59 Intake Total 274 430 Output Total 570 955 Balance -296 -525 Lab Results Last 24 Hours: Laboratory Results - last 24 hr 06/17/18 06/17/18 06/18/18 Range/Units 16:00 20:52 06:03 WBC (3.98-10.04) K/mm3 RBC (3.98-5.22) M/mm3 Hgb (11.2-15.7) gm/L Hct (34.1-44.9) % MCV (79.4-94.8) fl MCH (25.6-32.2) pg MCHC (32.2-35.5) g/dl RDW Std Deviation (36.4-46.3) fL Plt Count (182-369) K/mm3 MPV (9.4-12.3) fl Neut % (Auto) (34.0-71.1) % Lymph % (Auto) (19.3-51.7) % [place] % (Auto) (4.7-12.5) % Eos % (Auto) (0.7-5.8) Baso % (Auto) (0.1-1.2) % Neut # (Auto) (1.56-6.13) K/mm3 Lymph # (Auto) (1.18-3.74) K/mm3 [place] # (Auto) (0.24-0.36) K/mm3 Eos # (Auto) (0.04-0.36) K/mm3 Baso # (Auto) (0.01-0.08) K/mm3 Sodium (136-145) mEq/L Potassium (3.5-5.1) mEq/L Chloride (98-107) mEq/L Carbon Dioxide (21-32) mEq/L Anion Gap (5-15) BUN (7-18) mg/dL Creatinine (0.55-1.02) mg/dL Est Cr Clr Drug Dosing mL/min Estimated GFR (MDRD) (>60) mL/min BUN/Creatinine Ratio (14-18) Glucose (83-115) mg/dL POC Glucose 142 H 176 H (83-110) mg/dL Hemoglobin A1c (4.50-6.20) % Calcium (8.5-10.1) mg/dL Magnesium (1.8-2.4) mg/dl C-Reactive Protein (<1.0) mg/dL NT-Pro-B Natriuret Pep (0-450) pg/mL Triglycerides (<150) mg/dL Cholesterol (<200) mg/dL LDL Cholesterol Direct (<100) mg/dL HDL Cholesterol (40-59) mg/dL TSH 3rd Generation (0.358-3.74) uIU/mL Urine Color Yellow (Yellow) Urine Appearance Clear (Clear) Urine pH 6.5 (5.0-8.0) Ur Specific [place] 1.010 (1.005-1.030) Urine Protein Negative (Negative) Urine Glucose (UA) Negative (Negative) Urine Ketones Negative (Negative) Urine Occult Blood Negative (Negative) Urine Nitrite Negative (Negative) Urine Bilirubin Negative (Negative) Urine Urobilinogen 0.2 (0.2-1.0) Ur Leukocyte Esterase Negative (Negative) Urine RBC 0-5 (0-5) /hpf Urine WBC 0-5 (0-5) /hpf Ur Epithelial Cells 0-5 (0-5) /hpf Urine Bacteria Few (FEW) /hpf Urine Mucus Not seen (FEW) /hpf 06/18/18 06/18/18 06/18/18 Range/Units 06:05 06:05 06:05 WBC 7.92 (3.98-10.04) K/mm3 RBC 4.10 (3.98-5.22) M/mm3 Hgb 12.0 (11.2-15.7) gm/L Hct 37.7 (34.1-44.9) % MCV 92.0 (79.4-94.8) fl MCH 29.3 (25.6-32.2) pg MCHC 31.8 L (32.2-35.5) g/dl RDW Std Deviation 48.1 H (36.4-46.3) fL Plt Count 272 (182-369) K/mm3 MPV 10.3 (9.4-12.3) fl Neut % (Auto) 74.5 H (34.0-71.1) % Lymph % (Auto) 15.4 L (19.3-51.7) % [place] % (Auto) 8.2 (4.7-12.5) % Eos % (Auto) 1.1 (0.7-5.8) Baso % (Auto) 0.5 (0.1-1.2) % Neut # (Auto) 5.90 (1.56-6.13) K/mm3 Lymph # (Auto) 1.22 (1.18-3.74) K/mm3 [place] # (Auto) 0.65 H (0.24-0.36) K/mm3 Eos # (Auto) 0.09 (0.04-0.36) K/mm3 Baso # (Auto) 0.04 (0.01-0.08) K/mm3 Sodium 140 (136-145) mEq/L Potassium 3.8 (3.5-5.1) mEq/L Chloride 101 (98-107) mEq/L Carbon Dioxide 28 (21-32) mEq/L Anion Gap 14.8 (5-15) BUN 16 (7-18) mg/dL Creatinine 1.4 H (0.55-1.02) mg/dL Est Cr Clr Drug Dosing 23.79 mL/min Estimated GFR (MDRD) 36 (>60) mL/min BUN/Creatinine Ratio 11.4 L (14-18) Glucose 171 H (83-115) mg/dL POC Glucose (83-110) mg/dL Hemoglobin A1c (4.50-6.20) % Calcium 8.8 (8.5-10.1) mg/dL Magnesium 1.1 L (1.8-2.4) mg/dl C-Reactive Protein 1.2 H* (<1.0) mg/dL NT-Pro-B Natriuret Pep 2666 H (0-450) pg/mL Triglycerides 161 H (<150) mg/dL Cholesterol 143 (<200) mg/dL LDL Cholesterol Direct 84 (<100) mg/dL HDL Cholesterol 41.0 (40-59) mg/dL TSH 3rd Generation 5.372 H (0.358-3.74) uIU/mL Urine Color (Yellow) Urine Appearance (Clear) Urine pH (5.0-8.0) Ur Specific [place] (1.005-1.030) Urine Protein (Negative) Urine Glucose (UA) (Negative) Urine Ketones (Negative) Urine Occult Blood (Negative) Urine Nitrite (Negative) Urine Bilirubin (Negative) Urine Urobilinogen (0.2-1.0) Ur Leukocyte Esterase (Negative) Urine RBC (0-5) /hpf Urine WBC (0-5) /hpf Ur Epithelial Cells (0-5) /hpf Urine Bacteria (FEW) /hpf Urine Mucus (FEW) /hpf 06/18/18 06/18/18 Range/Units 06:05 11:12 WBC (3.98-10.04) K/mm3 RBC (3.98-5.22) M/mm3 Hgb (11.2-15.7) gm/L Hct (34.1-44.9) % MCV (79.4-94.8) fl MCH (25.6-32.2) pg MCHC (32.2-35.5) g/dl RDW Std Deviation (36.4-46.3) fL Plt Count (182-369) K/mm3 MPV (9.4-12.3) fl Neut % (Auto) (34.0-71.1) % Lymph % (Auto) (19.3-51.7) % [place] % (Auto) (4.7-12.5) % Eos % (Auto) (0.7-5.8) Baso % (Auto) (0.1-1.2) % Neut # (Auto) (1.56-6.13) K/mm3 Lymph # (Auto) (1.18-3.74) K/mm3 [place] # (Auto) (0.24-0.36) K/mm3 Eos # (Auto) (0.04-0.36) K/mm3 Baso # (Auto) (0.01-0.08) K/mm3 Sodium (136-145) mEq/L Potassium (3.5-5.1) mEq/L Chloride (98-107) mEq/L Carbon Dioxide (21-32) mEq/L Anion Gap (5-15) BUN (7-18) mg/dL Creatinine (0.55-1.02) mg/dL Est Cr Clr Drug Dosing mL/min Estimated GFR (MDRD) (>60) mL/min BUN/Creatinine Ratio (14-18) Glucose (83-115) mg/dL POC Glucose 185 H (83-110) mg/dL Hemoglobin A1c 7.70 H (4.50-6.20) % Calcium (8.5-10.1) mg/dL Magnesium (1.8-2.4) mg/dl C-Reactive Protein (<1.0) mg/dL NT-Pro-B Natriuret Pep (0-450) pg/mL Triglycerides (<150) mg/dL Cholesterol (<200) mg/dL LDL Cholesterol Direct (<100) mg/dL HDL Cholesterol (40-59) mg/dL TSH 3rd Generation (0.358-3.74) uIU/mL Urine Color (Yellow) Urine Appearance (Clear) Urine pH (5.0-8.0) Ur Specific [place] (1.005-1.030) Urine Protein (Negative) Urine Glucose (UA) (Negative) Urine Ketones (Negative) Urine Occult Blood (Negative) Urine Nitrite (Negative) Urine Bilirubin (Negative) Urine Urobilinogen (0.2-1.0) Ur Leukocyte Esterase (Negative) Urine RBC (0-5) /hpf Urine WBC (0-5) /hpf Ur Epithelial Cells (0-5) /hpf Urine Bacteria (FEW) /hpf Urine Mucus (FEW) /hpf Med Orders - Current: Current Medications Aspirin (Aspirin) 81 mg PO DAILY [facility]OXIE Last Admin: 06/18/18 08:31 Dose: 81 mg Dextrose/Water (Dextrose 50% In Water) 50 ml IVPUSH ASDIRECTED PRN PRN Reason: Hypoglycemia Diltiazem HCl 125 mg/ Sodium (Chloride) 125 mls @ 10 mls/hr IV TITRATE [facility]OXIE; Protocol Last Titration: 06/18/18 12:28 Dose: 0 mg/hr, 0 mls/hr Furosemide 100 mg/ Sodium (Chloride) 100 mls @ 4 mls/hr IV TITRATE [facility] Stop: 06/19/18 18:46 Last Admin: 06/17/18 20:17 Dose: 4 mg/hr, 4 mls/hr Insulin Human Lispro (Humalog) 0 unit SUBCUT QIDACANDBED [facility]; Protocol Last Admin: 06/18/18 12:25 Dose: 1 unit Levothyroxine Sodium (Synthroid) 88 mcg PO DAILY [facility] Last Admin: 06/18/18 08:31 Dose: 88 mcg Metoprolol Tartrate (Lopressor) 5 mg IVPUSH Q6H PRN PRN Reason: HR>100 Metoprolol Tartrate (Lopressor) 25 mg PO Q12H [facility] Last Admin: 06/18/18 06:15 Dose: Not Given Simvastatin (Zocor) 20 mg PO BEDTIME [facility] Last Admin: 06/17/18 20:17 Dose: 20 mg Sodium Chloride (Saline Flush) 10 ml FLUSH ASDIRECTED PRN PRN Reason: Keep Vein Open Last Admin: 06/17/18 12:35 Dose: 10 ml Discontinued Medications Furosemide (Lasix) 40 mg IVPUSH NOW ONE Stop: 06/17/18 12:21 Last Admin: 06/17/18 12:36 Dose: 40 mg Magnesium Sulfate 4 gm/ Premix 100 mls @ 25 mls/hr IV ONETIME ONE Stop: 06/18/18 11:01 Last Admin: 06/18/18 11:26 Dose: 25 mls/hr Metformin HCl (Glucophage) 500 mg PO BID [facility] Metoprolol Tartrate (Lopressor) 25 mg PO ONETIME ONE Stop: 06/18/18 11:01 Last Admin: 06/18/18 11:25 Dose: 25 mg - Exam Quality Assessment: DVT Prophylaxis General: Alert, Oriented, Cooperative, No Acute Distress HEENT: Pupils Equal, Pupils Reactive, EOMI Neck: No JVD Lungs: Normal Respiratory Effort, Decreased Breath Sounds, Rhonchi Cardiovascular: Regular Rate, Irregular Rhythm GI/Abdominal Exam: Normal Bowel Sounds, Soft, Non-Tender, No Organomegaly, No Distention (Female) Exam: Deferred Back Exam: Normal Inspection Extremities: Normal Inspection, Non-Tender, Normal Capillary Refill Skin: Warm Psy/Mental Status: Alert, Normal Affect - Problem List & Annotations (1) Congestive heart failure (CHF) SNOMED Code(s): 41147378 Code(s): I50.9 - HEART FAILURE, UNSPECIFIED Status: Acute Current Visit: Yes Qualifiers: Heart failure type: unspecified Heart failure chronicity: acute Qualified Code(s): I50.9 - Heart failure, unspecified - Problem List Review Problem List Initiated/Reviewed/Updated: Yes - My Orders Last 24 Hours: My Active Orders 06/17/18 18:45 Furosemide [Lasix] 100 mg Sodium Chloride 0.9% [Normal Saline] 90 ml IV TITRATE 06/17/18 18:47 Accu Check [Blood Glucose Check, Bedside] [RC] QIDACANDBED 06/17/18 18:48 Dextrose 50% in Water 50 ml IVPUSH ASDIRECTED PRN 06/17/18 18:50 Metoprolol Tartrate [Lopressor] 5 mg IVPUSH Q6H PRN 06/17/18 19:00 Metoprolol Tartrate [Lopressor] 25 mg PO Q12H 06/17/18 21:00 Simvastatin [Zocor] 20 mg PO BEDTIME 06/17/18 22:00 Insulin Lispro [HumaLOG] See Protocol SUBCUT QIDACANDBED 06/18/18 03:57 Up With Assistance [RC] ASDIRECTED 06/18/18 09:00 Aspirin 81 mg PO DAILY Levothyroxine [Synthroid] 88 mcg PO DAILY 06/18/18 10:47 Consult to Occupational Therapy [OT Evaluation and Treatment] [CONS] Routine PT Evaluation and Treatment [CONS] Routine 06/18/18 Lunch 2 Gram Sodium Diet [DIET] Fluid Restriction [DIET] Heart Healthy Diet [DIET] 06/19/18 05:00 BMP [BASIC METABOLIC PANEL,BMP] [CHEM] DAILY CBC WITH AUTO DIFF [HEME] DAILY CRP [C-REACTIVE PROTEIN] [CHEM] DAILY MAGNESIUM [CHEM] DAILY PRO B-TYPE NATRIUR PEPT,BNPPRO [CHEM] DAILY 06/20/18 05:00 BMP [BASIC METABOLIC PANEL,BMP] [CHEM] DAILY CBC WITH AUTO DIFF [HEME] DAILY CRP [C-REACTIVE PROTEIN] [CHEM] DAILY MAGNESIUM [CHEM] DAILY PRO B-TYPE NATRIUR PEPT,BNPPRO [CHEM] DAILY 06/21/18 05:00 BMP [BASIC METABOLIC PANEL,BMP] [CHEM] DAILY CBC WITH AUTO DIFF [HEME] DAILY CRP [C-REACTIVE PROTEIN] [CHEM] DAILY MAGNESIUM [CHEM] DAILY PRO B-TYPE NATRIUR PEPT,BNPPRO [CHEM] DAILY 06/22/18 05:00 BMP [BASIC METABOLIC PANEL,BMP] [CHEM] DAILY CBC WITH AUTO DIFF [HEME] DAILY CRP [C-REACTIVE PROTEIN] [CHEM] DAILY MAGNESIUM [CHEM] DAILY PRO B-TYPE NATRIUR PEPT,BNPPRO [CHEM] DAILY - Plan Plan:: Impression: Acutely decompensated heart failure "New onset" atrial fib-->>start UFH followed by Coumadin Chronic HTN HLD DM type 2 Obesity, class 3 Hypothyroidism Plan: Diurese Home meds BB/Ca channel blockers Daily labs Ischemic/Infectious cause of HF Dietary consults Consult PT/OT/CM DVT/GI prophylaxis
[2018-06-18] MEDS: Heparin Sodium/D5W 25,000 UNITS/500 ML BAG IV SCH (17:49)
[2018-06-18] MEDS: Furosemide 100 MG in Sodium Chloride 0.9% 90 ML IV SCH (18:36)
[2018-06-18] MEDS: Simvastatin 20 MG Tab PO SCH (20:08)
[2018-06-19] MEDS: Insulin Lispro 100 UNIT/ML 10 ML VIAL SUBCUT SCH ×4 (07:42→21:12)
[2018-06-19] MEDS: Aspirin 81 MG Tab.Chew PO SCH (08:10)
[2018-06-19] MEDS: Metoprolol Tartrate 25 MG Tab PO SCH ×2 (08:10→19:52)
[2018-06-19] MEDS: Levothyroxine 88 MCG Tab PO SCH (08:26)
[2018-06-19] MEDS: Heparin Sodium/D5W 25,000 UNITS/500 ML BAG IV SCH (13:02)
[2018-06-19] MEDS: Potassium Chloride 20 MEQ Tab.ER PO SCH ×3 (16:10→23:27)
--- NOTE | 2018-06-19 16:32 | PCM.PN ---
- General Info Date of Service: 06/19/18 Functional Status: Reports: Pain Controlled, Tolerating Diet, Ambulating, Urinating - Review of Systems General: Reports: Weakness HEENT: Reports: No Symptoms Pulmonary: Reports: Shortness of Breath Cardiovascular: Reports: No Symptoms Gastrointestinal: Reports: No Symptoms Genitourinary: Reports: No Symptoms Musculoskeletal: Reports: No Symptoms Skin: Reports: No Symptoms Neurological: Reports: No Symptoms Psychiatric: Reports: No Symptoms - Patient Data Vitals - Most Recent: Last Vital Signs Temp 36.6 C 06/19/18 16:00 Pulse 85 06/19/18 08:10 Resp 19 06/19/18 16:00 BP 105/90 06/19/18 16:00 Pulse Ox 91 L 06/19/18 16:00 Weight - Most Recent: 93.44 kg I&O - Last 24 Hours: Intake & Output 06/19/18 06/19/18 06/19/18 06:59 14:59 22:59 Intake Total 847 380 323 Output Total 850 955 150 Balance -3 -575 173 Lab Results Last 24 Hours: Laboratory Results - last 24 hr 06/18/18 06/18/18 06/18/18 Range/Units 16:34 16:34 17:55 WBC (3.98-10.04) K/mm3 RBC (3.98-5.22) M/mm3 Hgb (11.2-15.7) gm/L Hct (34.1-44.9) % MCV (79.4-94.8) fl MCH (25.6-32.2) pg MCHC (32.2-35.5) g/dl RDW Std Deviation (36.4-46.3) fL Plt Count 260 (182-369) K/mm3 MPV (9.4-12.3) fl Neut % (Auto) (34.0-71.1) % Lymph % (Auto) (19.3-51.7) % [place] % (Auto) (4.7-12.5) % Eos % (Auto) (0.7-5.8) Baso % (Auto) (0.1-1.2) % Neut # (Auto) (1.56-6.13) K/mm3 Lymph # (Auto) (1.18-3.74) K/mm3 [place] # (Auto) (0.24-0.36) K/mm3 Eos # (Auto) (0.04-0.36) K/mm3 Baso # (Auto) (0.01-0.08) K/mm3 PT (9.5-12.1) SECONDS INR APTT 26 (24-31) SECONDS Sodium (136-145) mEq/L Potassium (3.5-5.1) mEq/L Chloride (98-107) mEq/L Carbon Dioxide (21-32) mEq/L Anion Gap (5-15) BUN (7-18) mg/dL Creatinine (0.55-1.02) mg/dL Est Cr Clr Drug Dosing mL/min Estimated GFR (MDRD) (>60) mL/min BUN/Creatinine Ratio (14-18) Glucose (83-115) mg/dL POC Glucose 178 H (83-110) mg/dL Calcium (8.5-10.1) mg/dL Magnesium (1.8-2.4) mg/dl C-Reactive Protein (<1.0) mg/dL NT-Pro-B Natriuret Pep (0-450) pg/mL Free T4 (0.76-1.46) ng/dL 06/18/18 06/19/18 06/19/18 Range/Units 21:40 01:40 05:21 WBC 7.63 (3.98-10.04) K/mm3 RBC 3.96 L (3.98-5.22) M/mm3 Hgb 11.6 (11.2-15.7) gm/L Hct 36.3 (34.1-44.9) % MCV 91.7 (79.4-94.8) fl MCH 29.3 (25.6-32.2) pg MCHC 32.0 L (32.2-35.5) g/dl RDW Std Deviation 48.5 H (36.4-46.3) fL Plt Count 255 (182-369) K/mm3 MPV 10.6 (9.4-12.3) fl Neut % (Auto) 70.4 (34.0-71.1) % Lymph % (Auto) 19.7 (19.3-51.7) % [place] % (Auto) 7.3 (4.7-12.5) % Eos % (Auto) 2.0 (0.7-5.8) Baso % (Auto) 0.5 (0.1-1.2) % Neut # (Auto) 5.37 (1.56-6.13) K/mm3 Lymph # (Auto) 1.50 (1.18-3.74) K/mm3 [place] # (Auto) 0.56 H (0.24-0.36) K/mm3 Eos # (Auto) 0.15 (0.04-0.36) K/mm3 Baso # (Auto) 0.04 (0.01-0.08) K/mm3 PT (9.5-12.1) SECONDS INR APTT 64 H 136 H* (24-31) SECONDS Sodium (136-145) mEq/L Potassium (3.5-5.1) mEq/L Chloride (98-107) mEq/L Carbon Dioxide (21-32) mEq/L Anion Gap (5-15) BUN (7-18) mg/dL Creatinine (0.55-1.02) mg/dL Est Cr Clr Drug Dosing mL/min Estimated GFR (MDRD) (>60) mL/min BUN/Creatinine Ratio (14-18) Glucose (83-115) mg/dL POC Glucose (83-110) mg/dL Calcium (8.5-10.1) mg/dL Magnesium (1.8-2.4) mg/dl C-Reactive Protein (<1.0) mg/dL NT-Pro-B Natriuret Pep (0-450) pg/mL Free T4 (0.76-1.46) ng/dL 06/19/18 06/19/18 06/19/18 Range/Units 05:21 05:21 07:22 WBC (3.98-10.04) K/mm3 RBC (3.98-5.22) M/mm3 Hgb (11.2-15.7) gm/L Hct (34.1-44.9) % MCV (79.4-94.8) fl MCH (25.6-32.2) pg MCHC (32.2-35.5) g/dl RDW Std Deviation (36.4-46.3) fL Plt Count (182-369) K/mm3 MPV (9.4-12.3) fl Neut % (Auto) (34.0-71.1) % Lymph % (Auto) (19.3-51.7) % [place] % (Auto) (4.7-12.5) % Eos % (Auto) (0.7-5.8) Baso % (Auto) (0.1-1.2) % Neut # (Auto) (1.56-6.13) K/mm3 Lymph # (Auto) (1.18-3.74) K/mm3 [place] # (Auto) (0.24-0.36) K/mm3 Eos # (Auto) (0.04-0.36) K/mm3 Baso # (Auto) (0.01-0.08) K/mm3 PT (9.5-12.1) SECONDS INR APTT (24-31) SECONDS Sodium 141 (136-145) mEq/L Potassium 2.9 L (3.5-5.1) mEq/L Chloride 99 (98-107) mEq/L Carbon Dioxide 31 (21-32) mEq/L Anion Gap 13.9 (5-15) BUN 15 (7-18) mg/dL Creatinine 1.3 H (0.55-1.02) mg/dL Est Cr Clr Drug Dosing 25.62 mL/min Estimated GFR (MDRD) 40 (>60) mL/min BUN/Creatinine Ratio 11.5 L (14-18) Glucose 168 H (83-115) mg/dL POC Glucose 193 H (83-110) mg/dL Calcium 8.5 (8.5-10.1) mg/dL Magnesium 2.7 H (1.8-2.4) mg/dl C-Reactive Protein 1.7 H* (<1.0) mg/dL NT-Pro-B Natriuret Pep 2164 H (0-450) pg/mL Free T4 (0.76-1.46) ng/dL 06/19/18 06/19/18 06/19/18 Range/Units 07:37 07:37 11:21 WBC (3.98-10.04) K/mm3 RBC (3.98-5.22) M/mm3 Hgb (11.2-15.7) gm/L Hct (34.1-44.9) % MCV (79.4-94.8) fl MCH (25.6-32.2) pg MCHC (32.2-35.5) g/dl RDW Std Deviation (36.4-46.3) fL Plt Count (182-369) K/mm3 MPV (9.4-12.3) fl Neut % (Auto) (34.0-71.1) % Lymph % (Auto) (19.3-51.7) % [place] % (Auto) (4.7-12.5) % Eos % (Auto) (0.7-5.8) Baso % (Auto) (0.1-1.2) % Neut # (Auto) (1.56-6.13) K/mm3 Lymph # (Auto) (1.18-3.74) K/mm3 [place] # (Auto) (0.24-0.36) K/mm3 Eos # (Auto) (0.04-0.36) K/mm3 Baso # (Auto) (0.01-0.08) K/mm3 PT (9.5-12.1) SECONDS INR APTT 112 H* (24-31) SECONDS Sodium (136-145) mEq/L Potassium (3.5-5.1) mEq/L Chloride (98-107) mEq/L Carbon Dioxide (21-32) mEq/L Anion Gap (5-15) BUN (7-18) mg/dL Creatinine (0.55-1.02) mg/dL Est Cr Clr Drug Dosing mL/min Estimated GFR (MDRD) (>60) mL/min BUN/Creatinine Ratio (14-18) Glucose (83-115) mg/dL POC Glucose 242 H (83-110) mg/dL Calcium (8.5-10.1) mg/dL Magnesium (1.8-2.4) mg/dl C-Reactive Protein (<1.0) mg/dL NT-Pro-B Natriuret Pep (0-450) pg/mL Free T4 1.46 (0.76-1.46) ng/dL 06/19/18 06/19/18 Range/Units 14:12 14:12 WBC (3.98-10.04) K/mm3 RBC (3.98-5.22) M/mm3 Hgb (11.2-15.7) gm/L Hct (34.1-44.9) % MCV (79.4-94.8) fl MCH (25.6-32.2) pg MCHC (32.2-35.5) g/dl RDW Std Deviation (36.4-46.3) fL Plt Count (182-369) K/mm3 MPV (9.4-12.3) fl Neut % (Auto) (34.0-71.1) % Lymph % (Auto) (19.3-51.7) % [place] % (Auto) (4.7-12.5) % Eos % (Auto) (0.7-5.8) Baso % (Auto) (0.1-1.2) % Neut # (Auto) (1.56-6.13) K/mm3 Lymph # (Auto) (1.18-3.74) K/mm3 [place] # (Auto) (0.24-0.36) K/mm3 Eos # (Auto) (0.04-0.36) K/mm3 Baso # (Auto) (0.01-0.08) K/mm3 PT 10.9 (9.5-12.1) SECONDS INR 1.00 APTT 59 H (24-31) SECONDS Sodium (136-145) mEq/L Potassium (3.5-5.1) mEq/L Chloride (98-107) mEq/L Carbon Dioxide (21-32) mEq/L Anion Gap (5-15) BUN (7-18) mg/dL Creatinine (0.55-1.02) mg/dL Est Cr Clr Drug Dosing mL/min Estimated GFR (MDRD) (>60) mL/min BUN/Creatinine Ratio (14-18) Glucose (83-115) mg/dL POC Glucose (83-110) mg/dL Calcium (8.5-10.1) mg/dL Magnesium (1.8-2.4) mg/dl C-Reactive Protein (<1.0) mg/dL NT-Pro-B Natriuret Pep (0-450) pg/mL Free T4 (0.76-1.46) ng/dL Med Orders - Current: Current Medications Aspirin (Aspirin) 81 mg PO DAILY [facility] Last Admin: 06/19/18 08:10 Dose: 81 mg Dextrose/Water (Dextrose 50% In Water) 50 ml IVPUSH ASDIRECTED PRN PRN Reason: Hypoglycemia Diltiazem HCl 125 mg/ Sodium (Chloride) 125 mls @ 10 mls/hr IV TITRATE ROXIE; Protocol Last Titration: 06/18/18 12:28 Dose: 0 mg/hr, 0 mls/hr Furosemide 100 mg/ Sodium (Chloride) 100 mls @ 4 mls/hr IV TITRATE [facility]OXIE Stop: 06/19/18 18:46 Last Admin: 06/18/18 18:36 Dose: 4 mg/hr, 4 mls/hr Heparin Sodium/Dextrose (Heparin 25,000 Units In D5w 500 Ml) 25,000 units in 500 mls @ 20 mls/hr IV TITRATE ROXIE; Protocol Last Admin: 06/19/18 13:02 Dose: 1,140 units/hr, 22.8 mls/hr Insulin Human Lispro (Humalog) 0 unit SUBCUT QIDACANDBED ROXIE; Protocol Last Admin: 06/19/18 11:57 Dose: 2 unit Levothyroxine Sodium (Synthroid) 100 mcg PO ACBREAKFAST [facility] Metoprolol Tartrate (Lopressor) 5 mg IVPUSH Q6H PRN PRN Reason: HR>100 Metoprolol Tartrate (Lopressor) 25 mg PO Q12H [facility] Last Admin: 06/19/18 08:10 Dose: 25 mg Potassium Chloride (Klor-Con M20) 40 meq PO Q4H [facility] Stop: 06/20/18 00:01 Last Admin: 06/19/18 16:10 Dose: 40 meq Simvastatin (Zocor) 20 mg PO BEDTIME [facility] Last Admin: 06/18/18 20:08 Dose: 20 mg Sodium Chloride (Saline Flush) 10 ml FLUSH ASDIRECTED PRN PRN Reason: Keep Vein Open Last Admin: 06/17/18 12:35 Dose: 10 ml Warfarin Sodium (Pharmacy To Dose - Warfarin) 0 dose PO ASDIRECTED PRN PRN Reason: RX TO DOSE WARFARIN Warfarin Sodium (Coumadin) 4 mg PO QPM [facility] Stop: 06/19/18 18:01 Discontinued Medications Furosemide (Lasix) 40 mg IVPUSH NOW ONE Stop: 06/17/18 12:21 Last Admin: 06/17/18 12:36 Dose: 40 mg Magnesium Sulfate 4 gm/ Premix 100 mls @ 25 mls/hr IV ONETIME ONE Stop: 06/18/18 11:01 Last Admin: 06/18/18 11:26 Dose: 25 mls/hr Magnesium Sulfate 4 gm/ Premix 100 mls @ 25 mls/hr IV ONETIME ONE Stop: 06/18/18 21:01 Last Admin: 06/18/18 20:41 Dose: 25 mls/hr Levothyroxine Sodium (Synthroid) 88 mcg PO DAILY [facility] Last Admin: 06/19/18 08:26 Dose: 88 mcg Metformin HCl (Glucophage) 500 mg PO BID [facility] Metoprolol Tartrate (Lopressor) 25 mg PO ONETIME ONE Stop: 06/18/18 11:01 Last Admin: 06/18/18 11:25 Dose: 25 mg - Exam Quality Assessment: Supplemental Oxygen, DVT Prophylaxis General: Alert, Oriented, Cooperative, No Acute Distress HEENT: Pupils Equal, Pupils Reactive, EOMI Neck: Trachea Midline, No JVD Lungs: Normal Respiratory Effort Cardiovascular: Regular Rate, Irregular Rhythm GI/Abdominal Exam: Normal Bowel Sounds, Soft, Non-Tender, No Organomegaly, No Distention (Female) Exam: Deferred Back Exam: Normal Inspection Extremities: Normal Inspection, Non-Tender, Normal Capillary Refill Skin: Warm Neurological: No New Focal Deficit Psy/Mental Status: Alert, Normal Affect, Normal Mood - Problem List & Annotations (1) Congestive heart failure (CHF) SNOMED Code(s): 39141504 Code(s): I50.9 - HEART FAILURE, UNSPECIFIED Status: Acute Current Visit: Yes Qualifiers: Heart failure type: unspecified Heart failure chronicity: acute Qualified Code(s): I50.9 - Heart failure, unspecified - Problem List Review Problem List Initiated/Reviewed/Updated: Yes - My Orders Last 24 Hours: My Active Orders 06/18/18 16:00 Heparin Sodium/D5W [Heparin 25,000 Units in D5W 500 ML] 25,000 units in 500 ml IV TITRATE 06/19/18 10:26 DC Guevara Catheter [Urinary Catheter Removal] [RC] Per Unit Routine 06/19/18 10:52 Warfarin Pharmacy to Dose [Pharmacy to Dose - Warfarin] 0 dose PO ASDIRECTED PRN 06/19/18 11:00 ENMANUEL Bandage [Elastic Wrap] [OM.PC] Routine 06/19/18 15:44 Code Status [Resuscitation Status] Routine 06/19/18 18:00 Warfarin [Coumadin] 4 mg PO QPM 06/19/18 19:30 aPTT [PTT,PARTIAL THROMBOPLSTIN TIME] [COAG] Routine 06/20/18 05:00 BMP [BASIC METABOLIC PANEL,BMP] [CHEM] DAILY CBC WITH AUTO DIFF [HEME] DAILY CRP [C-REACTIVE PROTEIN] [CHEM] DAILY MAGNESIUM [CHEM] DAILY PRO B-TYPE NATRIUR PEPT,BNPPRO [CHEM] DAILY 06/20/18 05:11 INR,PT,PROTHROMBIN TIME [COAG] AM 06/20/18 06:00 Levothyroxine [Synthroid] 100 mcg PO ACBREAKFAST 06/21/18 05:00 BMP [BASIC METABOLIC PANEL,BMP] [CHEM] DAILY CBC WITH AUTO DIFF [HEME] DAILY CRP [C-REACTIVE PROTEIN] [CHEM] DAILY MAGNESIUM [CHEM] DAILY PRO B-TYPE NATRIUR PEPT,BNPPRO [CHEM] DAILY 06/21/18 05:11 INR,PT,PROTHROMBIN TIME [COAG] AM 06/22/18 05:00 BMP [BASIC METABOLIC PANEL,BMP] [CHEM] DAILY CBC WITH AUTO DIFF [HEME] DAILY CRP [C-REACTIVE PROTEIN] [CHEM] DAILY MAGNESIUM [CHEM] DAILY PRO B-TYPE NATRIUR PEPT,BNPPRO [CHEM] DAILY 06/22/18 05:11 INR,PT,PROTHROMBIN TIME [COAG] AM 06/23/18 05:11 INR,PT,PROTHROMBIN TIME [COAG] AM - Plan Plan:: Impression: Acutely decompensated heart failure-->>resolving "New onset" atrial fib-->>start UFH followed by Coumadin Chronic HTN HLD DM type 2 Obesity, class 3 Hypothyroidism Plan: Diurese Home meds BB/Ca channel blockers Daily labs Ischemic/Infectious cause of HF Dietary consults Consult PT/OT/CM DVT/GI prophylaxis
[2018-06-19] MEDS ORDERED: Warfarin 4 MG Tab PO SCH (18:00)
[2018-06-19] MEDS ORDERED: Furosemide 100 MG in Sodium Chloride 0.9% 90 ML IV SCH (18:15)
[2018-06-19] MEDS: Simvastatin 20 MG Tab PO SCH (20:19)
[2018-06-20] MEDS: Levothyroxine 100 MCG Tab PO SCH (06:22)
[2018-06-20] MEDS: Metoprolol Tartrate 25 MG Tab PO SCH ×2 (06:22→20:01)
[2018-06-20] MEDS: Insulin Lispro 100 UNIT/ML 10 ML VIAL SUBCUT SCH ×4 (06:44→22:04)
[2018-06-20] MEDS: Aspirin 81 MG Tab.Chew PO SCH (08:01)
[2018-06-20] MEDS: Heparin Sodium/D5W 25,000 UNITS/500 ML BAG IV SCH (12:58)
--- NOTE | 2018-06-20 14:11 | PCM.PN ---
- General Info Date of Service: 06/20/18 Functional Status: Reports: Pain Controlled, Tolerating Diet, Ambulating, Urinating - Review of Systems General: Reports: No Symptoms HEENT: Reports: No Symptoms Pulmonary: Reports: No Symptoms Cardiovascular: Reports: No Symptoms Gastrointestinal: Reports: No Symptoms Genitourinary: Reports: No Symptoms Musculoskeletal: Reports: No Symptoms Skin: Reports: No Symptoms Neurological: Reports: No Symptoms Psychiatric: Reports: No Symptoms - Patient Data Vitals - Most Recent: Last Vital Signs Temp 36.3 C 06/20/18 11:11 Pulse 85 06/20/18 11:11 Resp 16 06/20/18 11:11 BP 111/71 06/20/18 11:11 Pulse Ox 100 06/20/18 11:11 Weight - Most Recent: 91.762 kg I&O - Last 24 Hours: Intake & Output 06/19/18 06/20/18 06/20/18 22:59 06:59 14:59 Intake Total 673 676 380 Output Total 826 8740 800 Balance -812 -529 -965 Lab Results Last 24 Hours: Laboratory Results - last 24 hr 06/19/18 06/19/18 06/19/18 Range/Units 14:12 14:12 16:49 WBC (3.98-10.04) K/mm3 RBC (3.98-5.22) M/mm3 Hgb (11.2-15.7) gm/L Hct (34.1-44.9) % MCV (79.4-94.8) fl MCH (25.6-32.2) pg MCHC (32.2-35.5) g/dl RDW Std Deviation (36.4-46.3) fL Plt Count (182-369) K/mm3 MPV (9.4-12.3) fl Neut % (Auto) (34.0-71.1) % Lymph % (Auto) (19.3-51.7) % Hand % (Auto) (4.7-12.5) % Eos % (Auto) (0.7-5.8) Baso % (Auto) (0.1-1.2) % Neut # (Auto) (1.56-6.13) K/mm3 Lymph # (Auto) (1.18-3.74) K/mm3 Hand # (Auto) (0.24-0.36) K/mm3 Eos # (Auto) (0.04-0.36) K/mm3 Baso # (Auto) (0.01-0.08) K/mm3 PT 10.9 (9.5-12.1) SECONDS INR 1.00 APTT 59 H (24-31) SECONDS Sodium (136-145) mEq/L Potassium (3.5-5.1) mEq/L Chloride (98-107) mEq/L Carbon Dioxide (21-32) mEq/L Anion Gap (5-15) BUN (7-18) mg/dL Creatinine (0.55-1.02) mg/dL Est Cr Clr Drug Dosing mL/min Estimated GFR (MDRD) (>60) mL/min BUN/Creatinine Ratio (14-18) Glucose (83-115) mg/dL POC Glucose 167 H (83-110) mg/dL Calcium (8.5-10.1) mg/dL Magnesium (1.8-2.4) mg/dl C-Reactive Protein (<1.0) mg/dL NT-Pro-B Natriuret Pep (0-450) pg/mL 06/19/18 06/19/18 06/20/18 Range/Units 19:35 20:53 05:10 WBC 6.54 (3.98-10.04) K/mm3 RBC 3.86 L (3.98-5.22) M/mm3 Hgb 11.5 (11.2-15.7) gm/L Hct 35.8 (34.1-44.9) % MCV 92.7 (79.4-94.8) fl MCH 29.8 (25.6-32.2) pg MCHC 32.1 L (32.2-35.5) g/dl RDW Std Deviation 48.4 H (36.4-46.3) fL Plt Count 235 (182-369) K/mm3 MPV 10.7 (9.4-12.3) fl Neut % (Auto) 69.5 (34.0-71.1) % Lymph % (Auto) 18.2 L (19.3-51.7) % Hand % (Auto) 7.3 (4.7-12.5) % Eos % (Auto) 4.3 (0.7-5.8) Baso % (Auto) 0.5 (0.1-1.2) % Neut # (Auto) 4.55 (1.56-6.13) K/mm3 Lymph # (Auto) 1.19 (1.18-3.74) K/mm3 Hand # (Auto) 0.48 H (0.24-0.36) K/mm3 Eos # (Auto) 0.28 (0.04-0.36) K/mm3 Baso # (Auto) 0.03 (0.01-0.08) K/mm3 PT (9.5-12.1) SECONDS INR APTT 66 H (24-31) SECONDS Sodium (136-145) mEq/L Potassium (3.5-5.1) mEq/L Chloride (98-107) mEq/L Carbon Dioxide (21-32) mEq/L Anion Gap (5-15) BUN (7-18) mg/dL Creatinine (0.55-1.02) mg/dL Est Cr Clr Drug Dosing mL/min Estimated GFR (MDRD) (>60) mL/min BUN/Creatinine Ratio (14-18) Glucose (83-115) mg/dL POC Glucose 218 H (83-110) mg/dL Calcium (8.5-10.1) mg/dL Magnesium (1.8-2.4) mg/dl C-Reactive Protein (<1.0) mg/dL NT-Pro-B Natriuret Pep (0-450) pg/mL 06/20/18 06/20/18 06/20/18 Range/Units 05:10 05:10 05:10 WBC (3.98-10.04) K/mm3 RBC (3.98-5.22) M/mm3 Hgb (11.2-15.7) gm/L Hct (34.1-44.9) % MCV (79.4-94.8) fl MCH (25.6-32.2) pg MCHC (32.2-35.5) g/dl RDW Std Deviation (36.4-46.3) fL Plt Count (182-369) K/mm3 MPV (9.4-12.3) fl Neut % (Auto) (34.0-71.1) % Lymph % (Auto) (19.3-51.7) % Hand % (Auto) (4.7-12.5) % Eos % (Auto) (0.7-5.8) Baso % (Auto) (0.1-1.2) % Neut # (Auto) (1.56-6.13) K/mm3 Lymph # (Auto) (1.18-3.74) K/mm3 Hand # (Auto) (0.24-0.36) K/mm3 Eos # (Auto) (0.04-0.36) K/mm3 Baso # (Auto) (0.01-0.08) K/mm3 PT 11.0 (9.5-12.1) SECONDS INR 1.01 APTT (24-31) SECONDS Sodium 140 (136-145) mEq/L Potassium 3.8 (3.5-5.1) mEq/L Chloride 101 (98-107) mEq/L Carbon Dioxide 29 (21-32) mEq/L Anion Gap 13.8 (5-15) BUN 15 (7-18) mg/dL Creatinine 1.4 H (0.55-1.02) mg/dL Est Cr Clr Drug Dosing 23.79 mL/min Estimated GFR (MDRD) 36 (>60) mL/min BUN/Creatinine Ratio 10.7 L (14-18) Glucose 182 H (83-115) mg/dL POC Glucose (83-110) mg/dL Calcium 8.2 L (8.5-10.1) mg/dL Magnesium 1.8 (1.8-2.4) mg/dl C-Reactive Protein 1.9 H* (<1.0) mg/dL NT-Pro-B Natriuret Pep 2114 H (0-450) pg/mL 06/20/18 06/20/18 06/20/18 Range/Units 05:10 06:34 11:10 WBC (3.98-10.04) K/mm3 RBC (3.98-5.22) M/mm3 Hgb (11.2-15.7) gm/L Hct (34.1-44.9) % MCV (79.4-94.8) fl MCH (25.6-32.2) pg MCHC (32.2-35.5) g/dl RDW Std Deviation (36.4-46.3) fL Plt Count (182-369) K/mm3 MPV (9.4-12.3) fl Neut % (Auto) (34.0-71.1) % Lymph % (Auto) (19.3-51.7) % Hand % (Auto) (4.7-12.5) % Eos % (Auto) (0.7-5.8) Baso % (Auto) (0.1-1.2) % Neut # (Auto) (1.56-6.13) K/mm3 Lymph # (Auto) (1.18-3.74) K/mm3 Hand # (Auto) (0.24-0.36) K/mm3 Eos # (Auto) (0.04-0.36) K/mm3 Baso # (Auto) (0.01-0.08) K/mm3 PT (9.5-12.1) SECONDS INR APTT 76 H 57 H (24-31) SECONDS Sodium (136-145) mEq/L Potassium (3.5-5.1) mEq/L Chloride (98-107) mEq/L Carbon Dioxide (21-32) mEq/L Anion Gap (5-15) BUN (7-18) mg/dL Creatinine (0.55-1.02) mg/dL Est Cr Clr Drug Dosing mL/min Estimated GFR (MDRD) (>60) mL/min BUN/Creatinine Ratio (14-18) Glucose (83-115) mg/dL POC Glucose 181 H (83-110) mg/dL Calcium (8.5-10.1) mg/dL Magnesium (1.8-2.4) mg/dl C-Reactive Protein (<1.0) mg/dL NT-Pro-B Natriuret Pep (0-450) pg/mL 06/20/18 Range/Units 11:10 WBC (3.98-10.04) K/mm3 RBC (3.98-5.22) M/mm3 Hgb (11.2-15.7) gm/L Hct (34.1-44.9) % MCV (79.4-94.8) fl MCH (25.6-32.2) pg MCHC (32.2-35.5) g/dl RDW Std Deviation (36.4-46.3) fL Plt Count (182-369) K/mm3 MPV (9.4-12.3) fl Neut % (Auto) (34.0-71.1) % Lymph % (Auto) (19.3-51.7) % Hand % (Auto) (4.7-12.5) % Eos % (Auto) (0.7-5.8) Baso % (Auto) (0.1-1.2) % Neut # (Auto) (1.56-6.13) K/mm3 Lymph # (Auto) (1.18-3.74) K/mm3 Hand # (Auto) (0.24-0.36) K/mm3 Eos # (Auto) (0.04-0.36) K/mm3 Baso # (Auto) (0.01-0.08) K/mm3 PT (9.5-12.1) SECONDS INR APTT (24-31) SECONDS Sodium (136-145) mEq/L Potassium (3.5-5.1) mEq/L Chloride (98-107) mEq/L Carbon Dioxide (21-32) mEq/L Anion Gap (5-15) BUN (7-18) mg/dL Creatinine (0.55-1.02) mg/dL Est Cr Clr Drug Dosing mL/min Estimated GFR (MDRD) (>60) mL/min BUN/Creatinine Ratio (14-18) Glucose (83-115) mg/dL POC Glucose 214 H (83-110) mg/dL Calcium (8.5-10.1) mg/dL Magnesium (1.8-2.4) mg/dl C-Reactive Protein (<1.0) mg/dL NT-Pro-B Natriuret Pep (0-450) pg/mL Med Orders - Current: Current Medications Aspirin (Aspirin) 81 mg PO DAILY ROXIE Last Admin: 06/20/18 08:01 Dose: 81 mg Dextrose/Water (Dextrose 50% In Water) 50 ml IVPUSH ASDIRECTED PRN PRN Reason: Hypoglycemia Diltiazem HCl 125 mg/ Sodium (Chloride) 125 mls @ 10 mls/hr IV TITRATE ROXIE; Protocol Last Titration: 06/18/18 12:28 Dose: 0 mg/hr, 0 mls/hr Heparin Sodium/Dextrose (Heparin 25,000 Units In D5w 500 Ml) 25,000 units in 500 mls @ 20 mls/hr IV TITRATE ROXIE; Protocol Last Admin: 06/20/18 12:58 Dose: 949 units/hr, 18.98 mls/hr Furosemide 100 mg/ Sodium (Chloride) 100 mls @ 4 mls/hr IV TITRATE ROXIE; Protocol Last Admin: 06/19/18 18:18 Dose: 4 mls/hr Insulin Human Lispro (Humalog) 0 unit SUBCUT QIDACANDBED ROXIE; Protocol Last Admin: 06/20/18 11:19 Dose: 2 unit Levothyroxine Sodium (Synthroid) 100 mcg PO ACBREAKFAST [facility] Last Admin: 06/20/18 06:22 Dose: 100 mcg Metoprolol Tartrate (Lopressor) 5 mg IVPUSH Q6H PRN PRN Reason: HR>100 Metoprolol Tartrate (Lopressor) 25 mg PO Q12H [facility] Last Admin: 06/20/18 06:22 Dose: 25 mg Simvastatin (Zocor) 20 mg PO BEDTIME [facility] Last Admin: 06/19/18 20:19 Dose: 20 mg Sodium Chloride (Saline Flush) 10 ml FLUSH ASDIRECTED PRN PRN Reason: Keep Vein Open Last Admin: 06/17/18 12:35 Dose: 10 ml Warfarin Sodium (Pharmacy To Dose - Warfarin) 0 dose PO ASDIRECTED PRN PRN Reason: RX TO DOSE WARFARIN Warfarin Sodium (Coumadin) 4 mg PO QPM [facility] Stop: 06/20/18 18:01 Discontinued Medications Furosemide (Lasix) 40 mg IVPUSH NOW ONE Stop: 06/17/18 12:21 Last Admin: 06/17/18 12:36 Dose: 40 mg Furosemide 100 mg/ Sodium (Chloride) 100 mls @ 4 mls/hr IV TITRATE ROXIE Stop: 06/19/18 18:46 Last Admin: 06/18/18 18:36 Dose: 4 mg/hr, 4 mls/hr Magnesium Sulfate 4 gm/ Premix 100 mls @ 25 mls/hr IV ONETIME ONE Stop: 06/18/18 11:01 Last Admin: 06/18/18 11:26 Dose: 25 mls/hr Magnesium Sulfate 4 gm/ Premix 100 mls @ 25 mls/hr IV ONETIME ONE Stop: 06/18/18 21:01 Last Admin: 06/18/18 20:41 Dose: 25 mls/hr Levothyroxine Sodium (Synthroid) 88 mcg PO DAILY [facility] Last Admin: 06/19/18 08:26 Dose: 88 mcg Metformin HCl (Glucophage) 500 mg PO BID [facility] Metoprolol Tartrate (Lopressor) 25 mg PO ONETIME ONE Stop: 06/18/18 11:01 Last Admin: 06/18/18 11:25 Dose: 25 mg Potassium Chloride (Klor-Con M20) 40 meq PO Q4H [facility] Stop: 06/20/18 00:01 Last Admin: 06/19/18 23:27 Dose: 40 meq Warfarin Sodium (Coumadin) 4 mg PO QPM [facility] Stop: 06/19/18 18:01 Last Admin: 06/19/18 17:37 Dose: 4 mg - Exam Quality Assessment: DVT Prophylaxis General: Alert, Oriented, Cooperative, No Acute Distress HEENT: Pupils Equal, Pupils Reactive, EOMI Neck: Trachea Midline, No JVD Lungs: Normal Respiratory Effort Cardiovascular: Regular Rate, Irregular Rhythm GI/Abdominal Exam: Normal Bowel Sounds, Soft, Non-Tender, No Organomegaly, No Distention (Female) Exam: Deferred Back Exam: Normal Inspection Extremities: Normal Inspection, Non-Tender, Normal Capillary Refill Skin: Warm Neurological: No New Focal Deficit, Normal Gait, Normal Speech Psy/Mental Status: Alert, Normal Affect, Normal Mood - Problem List & Annotations (1) Congestive heart failure (CHF) SNOMED Code(s): 35190077 Code(s): I50.9 - HEART FAILURE, UNSPECIFIED Status: Acute Current Visit: Yes Qualifiers: Heart failure type: unspecified Heart failure chronicity: acute Qualified Code(s): I50.9 - Heart failure, unspecified - Problem List Review Problem List Initiated/Reviewed/Updated: Yes - My Orders Last 24 Hours: My Active Orders 06/19/18 15:44 Code Status [Resuscitation Status] Routine 06/19/18 18:15 Furosemide [Lasix] 100 mg Sodium Chloride 0.9% [Normal Saline] 90 ml IV TITRATE 06/20/18 06:00 Levothyroxine [Synthroid] 100 mcg PO ACBREAKFAST 06/20/18 17:00 aPTT [PTT,PARTIAL THROMBOPLSTIN TIME] [COAG] Timed 06/20/18 18:00 Warfarin [Coumadin] 4 mg PO QPM 06/21/18 05:00 BMP [BASIC METABOLIC PANEL,BMP] [CHEM] DAILY CBC WITH AUTO DIFF [HEME] DAILY CRP [C-REACTIVE PROTEIN] [CHEM] DAILY MAGNESIUM [CHEM] DAILY PRO B-TYPE NATRIUR PEPT,BNPPRO [CHEM] DAILY 06/21/18 05:11 INR,PT,PROTHROMBIN TIME [COAG] AM 06/22/18 05:00 BMP [BASIC METABOLIC PANEL,BMP] [CHEM] DAILY CBC WITH AUTO DIFF [HEME] DAILY CRP [C-REACTIVE PROTEIN] [CHEM] DAILY MAGNESIUM [CHEM] DAILY PRO B-TYPE NATRIUR PEPT,BNPPRO [CHEM] DAILY 06/22/18 05:11 INR,PT,PROTHROMBIN TIME [COAG] AM 06/23/18 05:11 INR,PT,PROTHROMBIN TIME [COAG] AM - Plan Plan:: Impression: Acutely decompensated heart failure-->>resolving DHF with valvular disease; HfPef, LVEF 60-65% "New onset" atrial fib-->>start UFH followed by Coumadin Chronic HTN HLD DM type 2 Obesity, class 3 Hypothyroidism Plan: Change status to NV with telemetry, 06/21/18. RADHA Babin drip at 1830 hour. Home meds BB/Ca channel blockers Daily labs Ischemic/Infectious cause of HF Dietary consults Consult PT/OT/CM DVT/GI prophylaxis DC 48 hours or when INR>1.8
[2018-06-20] MEDS ORDERED: Warfarin 4 MG Tab PO SCH (18:00)
[2018-06-20] MEDS: Simvastatin 20 MG Tab PO SCH (20:01)
[2018-06-21] MEDS: Metoprolol Tartrate 25 MG Tab PO SCH ×2 (06:18→19:58)
[2018-06-21] MEDS: Levothyroxine 100 MCG Tab PO SCH (06:18)
[2018-06-21] MEDS: Aspirin 81 MG Tab.Chew PO SCH (08:15)
[2018-06-21] MEDS: Insulin Lispro 100 UNIT/ML 10 ML VIAL SUBCUT SCH ×4 (08:15→21:56)
[2018-06-21] MEDS ORDERED: Magnesium Sulfate/Water 2 GM in Premix Bag 1 BAG IV ONE (10:00)
[2018-06-21] MEDS: Furosemide 20 MG/2 ML VIAL IVPUSH SCH ×2 (11:09→17:42)
--- NOTE | 2018-06-21 13:23 | PCM.PN ---
- General Info Date of Service: 06/21/18 Functional Status: Reports: Pain Controlled, Tolerating Diet, Ambulating, Urinating - Review of Systems General: Reports: Weakness HEENT: Reports: No Symptoms Pulmonary: Reports: No Symptoms Cardiovascular: Reports: No Symptoms Gastrointestinal: Reports: No Symptoms Genitourinary: Reports: No Symptoms Musculoskeletal: Reports: No Symptoms Skin: Reports: No Symptoms Neurological: Reports: No Symptoms Psychiatric: Reports: No Symptoms - Patient Data Vitals - Most Recent: Last Vital Signs Temp 36.2 C 06/21/18 07:56 Pulse 77 06/21/18 07:56 Resp 16 06/21/18 07:56 BP 133/76 06/21/18 07:56 Pulse Ox 97 06/21/18 07:56 Weight - Most Recent: 90.492 kg I&O - Last 24 Hours: Intake & Output 06/20/18 06/21/18 06/21/18 22:59 06:59 14:59 Intake Total 640 783 60 Output Total 500 775 Balance 140 8 60 Lab Results Last 24 Hours: Laboratory Results - last 24 hr 06/20/18 06/20/18 06/20/18 Range/Units 17:01 17:20 21:09 WBC (3.98-10.04) K/mm3 RBC (3.98-5.22) M/mm3 Hgb (11.2-15.7) gm/L Hct (34.1-44.9) % MCV (79.4-94.8) fl MCH (25.6-32.2) pg MCHC (32.2-35.5) g/dl RDW Std Deviation (36.4-46.3) fL Plt Count (182-369) K/mm3 MPV (9.4-12.3) fl Neut % (Auto) (34.0-71.1) % Lymph % (Auto) (19.3-51.7) % [place] % (Auto) (4.7-12.5) % Eos % (Auto) (0.7-5.8) Baso % (Auto) (0.1-1.2) % Neut # (Auto) (1.56-6.13) K/mm3 Lymph # (Auto) (1.18-3.74) K/mm3 [place] # (Auto) (0.24-0.36) K/mm3 Eos # (Auto) (0.04-0.36) K/mm3 Baso # (Auto) (0.01-0.08) K/mm3 Manual Slide Review PT (9.5-12.1) SECONDS INR APTT 53 H (24-31) SECONDS Sodium (136-145) mEq/L Potassium (3.5-5.1) mEq/L Chloride (98-107) mEq/L Carbon Dioxide (21-32) mEq/L Anion Gap (5-15) BUN (7-18) mg/dL Creatinine (0.55-1.02) mg/dL Est Cr Clr Drug Dosing mL/min Estimated GFR (MDRD) (>60) mL/min BUN/Creatinine Ratio (14-18) Glucose (83-115) mg/dL POC Glucose 147 H 175 H (83-110) mg/dL Calcium (8.5-10.1) mg/dL Magnesium (1.8-2.4) mg/dl C-Reactive Protein (<1.0) mg/dL NT-Pro-B Natriuret Pep (0-450) pg/mL 06/20/18 06/21/18 06/21/18 Range/Units 23:00 06:11 06:11 WBC 6.75 (3.98-10.04) K/mm3 RBC 4.12 (3.98-5.22) M/mm3 Hgb 12.2 (11.2-15.7) gm/L Hct 38.0 (34.1-44.9) % MCV 92.2 (79.4-94.8) fl MCH 29.6 (25.6-32.2) pg MCHC 32.1 L (32.2-35.5) g/dl RDW Std Deviation 48.3 H (36.4-46.3) fL Plt Count 273 (182-369) K/mm3 MPV 10.7 (9.4-12.3) fl Neut % (Auto) 71.4 H (34.0-71.1) % Lymph % (Auto) 15.9 L (19.3-51.7) % [place] % (Auto) 7.1 (4.7-12.5) % Eos % (Auto) 4.6 (0.7-5.8) Baso % (Auto) 0.7 (0.1-1.2) % Neut # (Auto) 4.82 (1.56-6.13) K/mm3 Lymph # (Auto) 1.07 L (1.18-3.74) K/mm3 [place] # (Auto) 0.48 H (0.24-0.36) K/mm3 Eos # (Auto) 0.31 (0.04-0.36) K/mm3 Baso # (Auto) 0.05 (0.01-0.08) K/mm3 Manual Slide Review Not Reportable PT (9.5-12.1) SECONDS INR APTT 51 H (24-31) SECONDS Sodium 140 (136-145) mEq/L Potassium 3.3 L (3.5-5.1) mEq/L Chloride 101 (98-107) mEq/L Carbon Dioxide 28 (21-32) mEq/L Anion Gap 14.3 (5-15) BUN 14 (7-18) mg/dL Creatinine 1.2 H (0.55-1.02) mg/dL Est Cr Clr Drug Dosing 27.75 mL/min Estimated GFR (MDRD) 43 (>60) mL/min BUN/Creatinine Ratio 11.7 L (14-18) Glucose 180 H (83-115) mg/dL POC Glucose (83-110) mg/dL Calcium 8.5 (8.5-10.1) mg/dL Magnesium 1.9 (1.8-2.4) mg/dl C-Reactive Protein 1.3 H* (<1.0) mg/dL NT-Pro-B Natriuret Pep (0-450) pg/mL 06/21/18 06/21/18 06/21/18 Range/Units 06:11 06:11 06:11 WBC (3.98-10.04) K/mm3 RBC (3.98-5.22) M/mm3 Hgb (11.2-15.7) gm/L Hct (34.1-44.9) % MCV (79.4-94.8) fl MCH (25.6-32.2) pg MCHC (32.2-35.5) g/dl RDW Std Deviation (36.4-46.3) fL Plt Count (182-369) K/mm3 MPV (9.4-12.3) fl Neut % (Auto) (34.0-71.1) % Lymph % (Auto) (19.3-51.7) % [place] % (Auto) (4.7-12.5) % Eos % (Auto) (0.7-5.8) Baso % (Auto) (0.1-1.2) % Neut # (Auto) (1.56-6.13) K/mm3 Lymph # (Auto) (1.18-3.74) K/mm3 [place] # (Auto) (0.24-0.36) K/mm3 Eos # (Auto) (0.04-0.36) K/mm3 Baso # (Auto) (0.01-0.08) K/mm3 Manual Slide Review PT 11.7 (9.5-12.1) SECONDS INR 1.07 APTT 51 H (24-31) SECONDS Sodium (136-145) mEq/L Potassium (3.5-5.1) mEq/L Chloride (98-107) mEq/L Carbon Dioxide (21-32) mEq/L Anion Gap (5-15) BUN (7-18) mg/dL Creatinine (0.55-1.02) mg/dL Est Cr Clr Drug Dosing mL/min Estimated GFR (MDRD) (>60) mL/min BUN/Creatinine Ratio (14-18) Glucose (83-115) mg/dL POC Glucose (83-110) mg/dL Calcium (8.5-10.1) mg/dL Magnesium (1.8-2.4) mg/dl C-Reactive Protein (<1.0) mg/dL NT-Pro-B Natriuret Pep 1861 H (0-450) pg/mL 06/21/18 06/21/18 06/21/18 Range/Units 06:24 11:39 12:09 WBC (3.98-10.04) K/mm3 RBC (3.98-5.22) M/mm3 Hgb (11.2-15.7) gm/L Hct (34.1-44.9) % MCV (79.4-94.8) fl MCH (25.6-32.2) pg MCHC (32.2-35.5) g/dl RDW Std Deviation (36.4-46.3) fL Plt Count (182-369) K/mm3 MPV (9.4-12.3) fl Neut % (Auto) (34.0-71.1) % Lymph % (Auto) (19.3-51.7) % [place] % (Auto) (4.7-12.5) % Eos % (Auto) (0.7-5.8) Baso % (Auto) (0.1-1.2) % Neut # (Auto) (1.56-6.13) K/mm3 Lymph # (Auto) (1.18-3.74) K/mm3 [place] # (Auto) (0.24-0.36) K/mm3 Eos # (Auto) (0.04-0.36) K/mm3 Baso # (Auto) (0.01-0.08) K/mm3 Manual Slide Review PT 12.2 H (9.5-12.1) SECONDS INR 1.12 APTT (24-31) SECONDS Sodium (136-145) mEq/L Potassium (3.5-5.1) mEq/L Chloride (98-107) mEq/L Carbon Dioxide (21-32) mEq/L Anion Gap (5-15) BUN (7-18) mg/dL Creatinine (0.55-1.02) mg/dL Est Cr Clr Drug Dosing mL/min Estimated GFR (MDRD) (>60) mL/min BUN/Creatinine Ratio (14-18) Glucose (83-115) mg/dL POC Glucose 195 H 280 H (83-110) mg/dL Calcium (8.5-10.1) mg/dL Magnesium (1.8-2.4) mg/dl C-Reactive Protein (<1.0) mg/dL NT-Pro-B Natriuret Pep (0-450) pg/mL Med Orders - Current: Current Medications Aspirin (Aspirin) 81 mg PO DAILY [facility] Last Admin: 06/21/18 08:15 Dose: 81 mg Dextrose/Water (Dextrose 50% In Water) 50 ml IVPUSH ASDIRECTED PRN PRN Reason: Hypoglycemia Furosemide (Lasix) 20 mg IVPUSH BID@1000,1800 [facility] Last Admin: 06/21/18 11:09 Dose: 20 mg Heparin Sodium/Dextrose (Heparin 25,000 Units In D5w 500 Ml) 25,000 units in 500 mls @ 20 mls/hr IV TITRATE [facility]; Protocol Last Admin: 06/20/18 12:58 Dose: 949 units/hr, 18.98 mls/hr Insulin Human Lispro (Humalog) 0 unit SUBCUT QIDACANDBED [facility]; Protocol Last Admin: 06/21/18 12:05 Dose: 3 unit Levothyroxine Sodium (Synthroid) 100 mcg PO ACBREAKFAST [facility] Last Admin: 06/21/18 06:18 Dose: 100 mcg Metoprolol Tartrate (Lopressor) 5 mg IVPUSH Q6H PRN PRN Reason: HR>100 Metoprolol Tartrate (Lopressor) 25 mg PO Q12H [facility] Last Admin: 06/21/18 06:18 Dose: 25 mg Potassium Chloride (Klor-Con M20) 40 meq PO BID [facility] Simvastatin (Zocor) 20 mg PO BEDTIME [facility] Last Admin: 06/20/18 20:01 Dose: 20 mg Sodium Chloride (Saline Flush) 10 ml FLUSH ASDIRECTED PRN PRN Reason: Keep Vein Open Last Admin: 06/17/18 12:35 Dose: 10 ml Warfarin Sodium (Pharmacy To Dose - Warfarin) 0 dose PO ASDIRECTED PRN PRN Reason: RX TO DOSE WARFARIN Warfarin Sodium (Coumadin) 5 mg PO QPM [facility] Stop: 06/21/18 21:00 Discontinued Medications Furosemide (Lasix) 40 mg IVPUSH NOW ONE Stop: 06/17/18 12:21 Last Admin: 06/17/18 12:36 Dose: 40 mg Diltiazem HCl 125 mg/ Sodium (Chloride) 125 mls @ 10 mls/hr IV TITRATE [facility]; Protocol Last Titration: 06/18/18 12:28 Dose: 0 mg/hr, 0 mls/hr Furosemide 100 mg/ Sodium (Chloride) 100 mls @ 4 mls/hr IV TITRATE [facility] Stop: 06/19/18 18:46 Last Admin: 06/18/18 18:36 Dose: 4 mg/hr, 4 mls/hr Magnesium Sulfate 4 gm/ Premix 100 mls @ 25 mls/hr IV ONETIME ONE Stop: 06/18/18 11:01 Last Admin: 06/18/18 11:26 Dose: 25 mls/hr Magnesium Sulfate 4 gm/ Premix 100 mls @ 25 mls/hr IV ONETIME ONE Stop: 06/18/18 21:01 Last Admin: 06/18/18 20:41 Dose: 25 mls/hr Furosemide 100 mg/ Sodium (Chloride) 100 mls @ 4 mls/hr IV TITRATE [facility]; Protocol Last Admin: 06/19/18 18:18 Dose: 4 mls/hr Magnesium Sulfate 2 gm/ Premix 50 mls @ 25 mls/hr IV ONETIME ONE Stop: 06/21/18 11:59 Last Admin: 06/21/18 11:17 Dose: 25 mls/hr Levothyroxine Sodium (Synthroid) 88 mcg PO DAILY [facility] Last Admin: 06/19/18 08:26 Dose: 88 mcg Metformin HCl (Glucophage) 500 mg PO BID [facility] Metoprolol Tartrate (Lopressor) 25 mg PO ONETIME ONE Stop: 06/18/18 11:01 Last Admin: 06/18/18 11:25 Dose: 25 mg Potassium Chloride (Klor-Con M20) 40 meq PO Q4H [facility] Stop: 06/20/18 00:01 Last Admin: 06/19/18 23:27 Dose: 40 meq Warfarin Sodium (Coumadin) 4 mg PO QPM [facility] Stop: 06/19/18 18:01 Last Admin: 06/19/18 17:37 Dose: 4 mg Warfarin Sodium (Coumadin) 4 mg PO QPM [facility] Stop: 06/20/18 18:01 Last Admin: 06/20/18 18:00 Dose: 4 mg - Exam Quality Assessment: DVT Prophylaxis General: Alert, Oriented, Cooperative, No Acute Distress HEENT: Pupils Equal, Pupils Reactive, EOMI Neck: Trachea Midline, No JVD Lungs: Normal Respiratory Effort Cardiovascular: Regular Rate, Irregular Rhythm GI/Abdominal Exam: Normal Bowel Sounds, Soft, Non-Tender, No Organomegaly, No Distention (Female) Exam: Deferred Back Exam: Normal Inspection Extremities: Normal Inspection, Non-Tender, Normal Capillary Refill Skin: Warm Neurological: No New Focal Deficit Psy/Mental Status: Alert, Normal Affect, Normal Mood - Problem List & Annotations (1) Congestive heart failure (CHF) SNOMED Code(s): 37872628 Code(s): I50.9 - HEART FAILURE, UNSPECIFIED Status: Acute Current Visit: Yes Qualifiers: Heart failure type: unspecified Heart failure chronicity: acute Qualified Code(s): I50.9 - Heart failure, unspecified - Problem List Review Problem List Initiated/Reviewed/Updated: No - My Orders Last 24 Hours: My Active Orders 06/20/18 18:16 Patient Status [ADT] Routine 06/21/18 10:00 Furosemide [Lasix] 20 mg IVPUSH BID@1000,1800 06/21/18 13:30 Potassium Chloride [Klor-Con M20] 40 meq PO BID 06/21/18 18:00 Warfarin [Coumadin] 5 mg PO QPM 06/22/18 05:00 BMP [BASIC METABOLIC PANEL,BMP] [CHEM] DAILY CBC WITH AUTO DIFF [HEME] DAILY CRP [C-REACTIVE PROTEIN] [CHEM] DAILY MAGNESIUM [CHEM] DAILY PRO B-TYPE NATRIUR PEPT,BNPPRO [CHEM] DAILY 06/22/18 05:11 INR,PT,PROTHROMBIN TIME [COAG] AM 06/23/18 05:11 INR,PT,PROTHROMBIN TIME [COAG] AM - Plan Plan:: Impression: Acutely decompensated heart failure-->>resolving DHF with valvular disease; HFpEF, LVEF 60-65% HF likely precipitated by A Fib with RVR "New onset" atrial fib-->>start UFH followed by Coumadin Chronic HTN HLD DM type 2 Obesity, class 3 Hypothyroidism Plan: MS with telemetry, 06/20/18. RADHA Babin drip at 1830 hour; continue IVP x 24 hours. Home meds BB/Ca channel blockers Daily labs; replace electrolytes Dietary consults Consult PT/OT/CM DVT/GI prophylaxis Follow up needed PCP/card DC 48 hours or when INR>1.8; LOS>96 hours with slow response to therapy.
[2018-06-21] MEDS: Heparin Sodium/D5W 25,000 UNITS/500 ML BAG IV SCH (14:40)
[2018-06-21] MEDS: Potassium Chloride 20 MEQ Tab.ER PO SCH ×2 (14:42→21:55)
[2018-06-21] MEDS ORDERED: Warfarin 5 MG Tab PO SCH (18:00)
[2018-06-21] MEDS: Simvastatin 20 MG Tab PO SCH (21:56)
[2018-06-22] MEDS: Metoprolol Tartrate 25 MG Tab PO SCH ×2 (06:38→18:00)
[2018-06-22] MEDS: Levothyroxine 100 MCG Tab PO SCH (06:39)
[2018-06-22] MEDS: Aspirin 81 MG Tab.Chew PO SCH (08:54)
[2018-06-22] MEDS: Insulin Lispro 100 UNIT/ML 10 ML VIAL SUBCUT SCH ×4 (08:55→21:36)
[2018-06-22] MEDS: Potassium Chloride 20 MEQ Tab.ER PO SCH ×2 (08:55→21:23)
[2018-06-22] MEDS: Furosemide 20 MG/2 ML VIAL IVPUSH SCH ×2 (09:07→17:45)
--- NOTE | 2018-06-22 12:27 | PCM.PN ---
- General Info Date of Service: 06/22/18 Functional Status: Reports: Pain Controlled, Tolerating Diet, Ambulating, Urinating - Review of Systems General: Reports: Weakness (resolved), Fatigue (resolved) HEENT: Reports: No Symptoms Pulmonary: Reports: Shortness of Breath (resolved) Cardiovascular: Reports: No Symptoms Gastrointestinal: Reports: No Symptoms Genitourinary: Reports: No Symptoms Musculoskeletal: Reports: No Symptoms Skin: Reports: No Symptoms Neurological: Reports: No Symptoms Psychiatric: Reports: No Symptoms - Patient Data Vitals - Most Recent: Last Vital Signs Temp 36.2 C 06/22/18 11:32 Pulse 79 06/22/18 11:32 Resp 14 06/22/18 11:32 BP 113/69 06/22/18 11:32 Pulse Ox 97 06/22/18 11:32 Weight - Most Recent: 90.129 kg I&O - Last 24 Hours: Intake & Output 06/21/18 06/22/18 06/22/18 22:59 06:59 14:59 Intake Total 1165 664 380 Output Total 200 475 Balance 965 189 380 Lab Results Last 24 Hours: Laboratory Results - last 24 hr 06/21/18 06/21/18 06/21/18 Range/Units 12:09 12:09 17:11 WBC (3.98-10.04) K/mm3 RBC (3.98-5.22) M/mm3 Hgb (11.2-15.7) gm/L Hct (34.1-44.9) % MCV (79.4-94.8) fl MCH (25.6-32.2) pg MCHC (32.2-35.5) g/dl RDW Std Deviation (36.4-46.3) fL Plt Count (182-369) K/mm3 MPV (9.4-12.3) fl Neut % (Auto) (34.0-71.1) % Lymph % (Auto) (19.3-51.7) % [place] % (Auto) (4.7-12.5) % Eos % (Auto) (0.7-5.8) Baso % (Auto) (0.1-1.2) % Neut # (Auto) (1.56-6.13) K/mm3 Lymph # (Auto) (1.18-3.74) K/mm3 [place] # (Auto) (0.24-0.36) K/mm3 Eos # (Auto) (0.04-0.36) K/mm3 Baso # (Auto) (0.01-0.08) K/mm3 PT 12.2 H (9.5-12.1) SECONDS INR 1.12 APTT 53 H (24-31) SECONDS Sodium (136-145) mEq/L Potassium (3.5-5.1) mEq/L Chloride (98-107) mEq/L Carbon Dioxide (21-32) mEq/L Anion Gap (5-15) BUN (7-18) mg/dL Creatinine (0.55-1.02) mg/dL Est Cr Clr Drug Dosing mL/min Estimated GFR (MDRD) (>60) mL/min BUN/Creatinine Ratio (14-18) Glucose (83-115) mg/dL POC Glucose 157 H (83-110) mg/dL Calcium (8.5-10.1) mg/dL Magnesium (1.8-2.4) mg/dl C-Reactive Protein (<1.0) mg/dL NT-Pro-B Natriuret Pep (0-450) pg/mL 06/21/18 06/21/18 06/22/18 Range/Units 18:10 20:17 05:53 WBC 6.45 (3.98-10.04) K/mm3 RBC 4.32 (3.98-5.22) M/mm3 Hgb 12.7 (11.2-15.7) gm/L Hct 39.6 (34.1-44.9) % MCV 91.7 (79.4-94.8) fl MCH 29.4 (25.6-32.2) pg MCHC 32.1 L (32.2-35.5) g/dl RDW Std Deviation 48.4 H (36.4-46.3) fL Plt Count 295 (182-369) K/mm3 MPV 11.1 (9.4-12.3) fl Neut % (Auto) 67.6 (34.0-71.1) % Lymph % (Auto) 18.6 L (19.3-51.7) % [place] % (Auto) 7.9 (4.7-12.5) % Eos % (Auto) 5.1 (0.7-5.8) Baso % (Auto) 0.6 (0.1-1.2) % Neut # (Auto) 4.36 (1.56-6.13) K/mm3 Lymph # (Auto) 1.20 (1.18-3.74) K/mm3 [place] # (Auto) 0.51 H (0.24-0.36) K/mm3 Eos # (Auto) 0.33 (0.04-0.36) K/mm3 Baso # (Auto) 0.04 (0.01-0.08) K/mm3 PT (9.5-12.1) SECONDS INR APTT 53 H (24-31) SECONDS Sodium (136-145) mEq/L Potassium (3.5-5.1) mEq/L Chloride (98-107) mEq/L Carbon Dioxide (21-32) mEq/L Anion Gap (5-15) BUN (7-18) mg/dL Creatinine (0.55-1.02) mg/dL Est Cr Clr Drug Dosing mL/min Estimated GFR (MDRD) (>60) mL/min BUN/Creatinine Ratio (14-18) Glucose (83-115) mg/dL POC Glucose 244 H (83-110) mg/dL Calcium (8.5-10.1) mg/dL Magnesium (1.8-2.4) mg/dl C-Reactive Protein (<1.0) mg/dL NT-Pro-B Natriuret Pep (0-450) pg/mL 06/22/18 06/22/18 06/22/18 Range/Units 05:53 05:53 05:53 WBC (3.98-10.04) K/mm3 RBC (3.98-5.22) M/mm3 Hgb (11.2-15.7) gm/L Hct (34.1-44.9) % MCV (79.4-94.8) fl MCH (25.6-32.2) pg MCHC (32.2-35.5) g/dl RDW Std Deviation (36.4-46.3) fL Plt Count (182-369) K/mm3 MPV (9.4-12.3) fl Neut % (Auto) (34.0-71.1) % Lymph % (Auto) (19.3-51.7) % [place] % (Auto) (4.7-12.5) % Eos % (Auto) (0.7-5.8) Baso % (Auto) (0.1-1.2) % Neut # (Auto) (1.56-6.13) K/mm3 Lymph # (Auto) (1.18-3.74) K/mm3 [place] # (Auto) (0.24-0.36) K/mm3 Eos # (Auto) (0.04-0.36) K/mm3 Baso # (Auto) (0.01-0.08) K/mm3 PT 15.1 H (9.5-12.1) SECONDS INR 1.39 APTT (24-31) SECONDS Sodium 140 (136-145) mEq/L Potassium 4.3 (3.5-5.1) mEq/L Chloride 103 (98-107) mEq/L Carbon Dioxide 27 (21-32) mEq/L Anion Gap 14.3 (5-15) BUN 13 (7-18) mg/dL Creatinine 1.3 H (0.55-1.02) mg/dL Est Cr Clr Drug Dosing 25.62 mL/min Estimated GFR (MDRD) 40 (>60) mL/min BUN/Creatinine Ratio 10.0 L (14-18) Glucose 168 H (83-115) mg/dL POC Glucose (83-110) mg/dL Calcium 9.1 (8.5-10.1) mg/dL Magnesium 2.1 (1.8-2.4) mg/dl C-Reactive Protein 0.5 (<1.0) mg/dL NT-Pro-B Natriuret Pep 1674 H (0-450) pg/mL 06/22/18 06/22/18 06/22/18 Range/Units 05:53 06:47 10:50 WBC (3.98-10.04) K/mm3 RBC (3.98-5.22) M/mm3 Hgb (11.2-15.7) gm/L Hct (34.1-44.9) % MCV (79.4-94.8) fl MCH (25.6-32.2) pg MCHC (32.2-35.5) g/dl RDW Std Deviation (36.4-46.3) fL Plt Count (182-369) K/mm3 MPV (9.4-12.3) fl Neut % (Auto) (34.0-71.1) % Lymph % (Auto) (19.3-51.7) % [place] % (Auto) (4.7-12.5) % Eos % (Auto) (0.7-5.8) Baso % (Auto) (0.1-1.2) % Neut # (Auto) (1.56-6.13) K/mm3 Lymph # (Auto) (1.18-3.74) K/mm3 [place] # (Auto) (0.24-0.36) K/mm3 Eos # (Auto) (0.04-0.36) K/mm3 Baso # (Auto) (0.01-0.08) K/mm3 PT (9.5-12.1) SECONDS INR APTT 58 H (24-31) SECONDS Sodium (136-145) mEq/L Potassium (3.5-5.1) mEq/L Chloride (98-107) mEq/L Carbon Dioxide (21-32) mEq/L Anion Gap (5-15) BUN (7-18) mg/dL Creatinine (0.55-1.02) mg/dL Est Cr Clr Drug Dosing mL/min Estimated GFR (MDRD) (>60) mL/min BUN/Creatinine Ratio (14-18) Glucose (83-115) mg/dL POC Glucose 190 H 359 H (83-110) mg/dL Calcium (8.5-10.1) mg/dL Magnesium (1.8-2.4) mg/dl C-Reactive Protein (<1.0) mg/dL NT-Pro-B Natriuret Pep (0-450) pg/mL Med Orders - Current: Current Medications Aspirin (Aspirin) 81 mg PO DAILY [facility] Last Admin: 06/22/18 08:54 Dose: 81 mg Dextrose/Water (Dextrose 50% In Water) 50 ml IVPUSH ASDIRECTED PRN PRN Reason: Hypoglycemia Furosemide (Lasix) 20 mg IVPUSH BID@1000,1800 [facility] Last Admin: 06/22/18 09:07 Dose: 20 mg Heparin Sodium/Dextrose (Heparin 25,000 Units In D5w 500 Ml) 25,000 units in 500 mls @ 20 mls/hr IV TITRATE [facility]; Protocol Last Admin: 06/21/18 14:40 Dose: 949 units/hr, 18.98 mls/hr Insulin Human Lispro (Humalog) 0 unit SUBCUT QIDACANDBED [facility]; Protocol Last Admin: 06/22/18 11:22 Dose: 5 unit Levothyroxine Sodium (Synthroid) 100 mcg PO ACBREAKFAST [facility] Last Admin: 06/22/18 06:39 Dose: 100 mcg Metoprolol Tartrate (Lopressor) 5 mg IVPUSH Q6H PRN PRN Reason: HR>100 Metoprolol Tartrate (Lopressor) 25 mg PO Q12H [facility] Last Admin: 06/22/18 06:38 Dose: 25 mg Potassium Chloride (Klor-Con M20) 40 meq PO BID [facility] Stop: 06/22/18 21:01 Last Admin: 06/22/18 08:55 Dose: 40 meq Simvastatin (Zocor) 20 mg PO BEDTIME [facility] Last Admin: 06/21/18 21:56 Dose: 20 mg Sodium Chloride (Saline Flush) 10 ml FLUSH ASDIRECTED PRN PRN Reason: Keep Vein Open Last Admin: 06/17/18 12:35 Dose: 10 ml Warfarin Sodium (Pharmacy To Dose - Warfarin) 0 dose PO ASDIRECTED PRN PRN Reason: RX TO DOSE WARFARIN Warfarin Sodium (Coumadin) 4 mg PO QPM [facility] Stop: 06/22/18 21:00 Discontinued Medications Furosemide (Lasix) 40 mg IVPUSH NOW ONE Stop: 06/17/18 12:21 Last Admin: 06/17/18 12:36 Dose: 40 mg Diltiazem HCl 125 mg/ Sodium (Chloride) 125 mls @ 10 mls/hr IV TITRATE [facility]; Protocol Last Titration: 06/18/18 12:28 Dose: 0 mg/hr, 0 mls/hr Furosemide 100 mg/ Sodium (Chloride) 100 mls @ 4 mls/hr IV TITRATE [facility] Stop: 06/19/18 18:46 Last Admin: 06/18/18 18:36 Dose: 4 mg/hr, 4 mls/hr Magnesium Sulfate 4 gm/ Premix 100 mls @ 25 mls/hr IV ONETIME ONE Stop: 06/18/18 11:01 Last Admin: 06/18/18 11:26 Dose: 25 mls/hr Magnesium Sulfate 4 gm/ Premix 100 mls @ 25 mls/hr IV ONETIME ONE Stop: 06/18/18 21:01 Last Admin: 06/18/18 20:41 Dose: 25 mls/hr Furosemide 100 mg/ Sodium (Chloride) 100 mls @ 4 mls/hr IV TITRATE [facility]; Protocol Last Admin: 06/19/18 18:18 Dose: 4 mls/hr Magnesium Sulfate 2 gm/ Premix 50 mls @ 25 mls/hr IV ONETIME ONE Stop: 06/21/18 11:59 Last Admin: 06/21/18 11:17 Dose: 25 mls/hr Levothyroxine Sodium (Synthroid) 88 mcg PO DAILY [facility] Last Admin: 06/19/18 08:26 Dose: 88 mcg Metformin HCl (Glucophage) 500 mg PO BID [facility] Metoprolol Tartrate (Lopressor) 25 mg PO ONETIME ONE Stop: 06/18/18 11:01 Last Admin: 06/18/18 11:25 Dose: 25 mg Potassium Chloride (Klor-Con M20) 40 meq PO Q4H [facility] Stop: 06/20/18 00:01 Last Admin: 06/19/18 23:27 Dose: 40 meq Warfarin Sodium (Coumadin) 4 mg PO QPM [facility] Stop: 06/19/18 18:01 Last Admin: 06/19/18 17:37 Dose: 4 mg Warfarin Sodium (Coumadin) 4 mg PO QPM ROXIE Stop: 06/20/18 18:01 Last Admin: 06/20/18 18:00 Dose: 4 mg Warfarin Sodium (Coumadin) 5 mg PO QPM [facility] Stop: 06/21/18 21:00 Last Admin: 06/21/18 17:42 Dose: 5 mg - Exam Quality Assessment: DVT Prophylaxis General: Alert, Oriented, Cooperative, No Acute Distress HEENT: Pupils Equal, Pupils Reactive, EOMI Neck: Trachea Midline, No JVD Lungs: Normal Respiratory Effort Cardiovascular: Regular Rate, Irregular Rhythm GI/Abdominal Exam: Normal Bowel Sounds, Soft, Non-Tender, No Organomegaly, No Distention (Female) Exam: Deferred Back Exam: Full Range of Motion Extremities: Normal Inspection, Non-Tender, Normal Capillary Refill Skin: Warm Neurological: No New Focal Deficit, Normal Gait, Normal Speech Psy/Mental Status: Alert, Normal Affect, Normal Mood - Problem List & Annotations (1) Congestive heart failure (CHF) SNOMED Code(s): 21541648 Code(s): I50.9 - HEART FAILURE, UNSPECIFIED Status: Acute Current Visit: Yes Qualifiers: Heart failure type: diastolic Heart failure chronicity: acute Qualified Code(s): I50.31 - Acute diastolic (congestive) heart failure (2) Hypothyroid SNOMED Code(s): 84566823 Code(s): E03.9 - HYPOTHYROIDISM, UNSPECIFIED Status: Chronic Current Visit: Yes (3) Hyperlipidemia SNOMED Code(s): 66364725 Code(s): E78.5 - HYPERLIPIDEMIA, UNSPECIFIED Status: Chronic Current Visit: Yes (4) Diabetes mellitus SNOMED Code(s): 77717622 Code(s): E11.9 - TYPE 2 DIABETES MELLITUS WITHOUT COMPLICATIONS Status: Chronic Current Visit: Yes (5) Hypertension SNOMED Code(s): 50225247 Code(s): I10 - ESSENTIAL (PRIMARY) HYPERTENSION Status: Chronic Current Visit: Yes (6) Obesity, morbid, BMI 40.0-49.9 SNOMED Code(s): 991481393, 512637965 Code(s): E66.01 - MORBID (SEVERE) OBESITY DUE TO EXCESS CALORIES Status: Chronic Current Visit: Yes (7) Vitamin D deficiency, unspecified SNOMED Code(s): 13361074 Code(s): E55.9 - VITAMIN D DEFICIENCY, UNSPECIFIED Status: Chronic Current Visit: Yes (8) Atrial fibrillation with RVR SNOMED Code(s): 552990947595491 Code(s): I48.91 - UNSPECIFIED ATRIAL FIBRILLATION Status: Acute Current Visit: Yes - Problem List Review Problem List Initiated/Reviewed/Updated: Yes - My Orders Last 24 Hours: My Active Orders 06/21/18 13:30 Potassium Chloride [Klor-Con M20] 40 meq PO BID 06/22/18 18:00 Warfarin [Coumadin] 4 mg PO QPM 06/23/18 05:11 INR,PT,PROTHROMBIN TIME [[facility]] AM 06/23/18 06:00 PTT,PARTIAL THROMBOPLSTIN TIME [[facility]] Routine - Plan Plan:: Impression: Acutely decompensated heart failure-->>resolving DHF with valvular disease; HFpEF, LVEF 60-65% HF likely precipitated by A Fib with RVR "New onset" atrial fib-->>start UFH followed by Coumadin Chronic HTN HLD DM type 2 Obesity, class 3 Hypothyroidism Plan: MS with telemetry, 06/20/18. Dirosanae, DC drip at 1830 hour; continue IVP x 24 hours. Home meds BB/Ca channel blockers Daily labs; replace electrolytes Dietary consults Consult PT/OT/CM DVT/GI prophylaxis Follow up needed PCP/card DC 48 hours or when INR>1.8; LOS>96 hours with slow response to therapy.
[2018-06-22] MEDS: Saccharomyces Boulardii (Probiotic) 250 MG Cap PO SCH (15:25)
[2018-06-22] MEDS ORDERED: cefTRIAXone 2 GM in Sodium Chloride 0.9% 100 ML IV ONE (16:00)
[2018-06-22] MEDS ORDERED: Warfarin 4 MG Tab PO SCH (18:00)
[2018-06-22] MEDS: Heparin Sodium/D5W 25,000 UNITS/500 ML BAG IV SCH (18:58)
[2018-06-22] MEDS: Simvastatin 20 MG Tab PO SCH (21:23)
[2018-06-23] MEDS: Metoprolol Tartrate 25 MG Tab PO SCH ×2 (06:36→18:06)
[2018-06-23] MEDS: Levothyroxine 100 MCG Tab PO SCH (06:38)
[2018-06-23] MEDS: Saccharomyces Boulardii (Probiotic) 250 MG Cap PO SCH (08:21)
[2018-06-23] MEDS: Insulin Lispro 100 UNIT/ML 10 ML VIAL SUBCUT SCH ×4 (08:23→22:08)
[2018-06-23] MEDS: Aspirin 81 MG Tab.Chew PO SCH (08:24)
--- NOTE | 2018-06-23 08:38 | US ---
Bilateral lower extremity deep venous ultrasound: Duplex and color flow imaging was obtained of the right and left common femoral, proximal greater saphenous, superficial femoral, popliteal, posterior tibial and peroneal veins. Comparison: No prior venous exam. Findings: Normal phasic flow, augmentation and compression are seen. Impression: 1. No evidence of deep venous thrombosis within the right or left lower extremities. Diagnostic code #1
[2018-06-23] MEDS ORDERED: Furosemide 20 MG/2 ML VIAL IVPUSH SCH (09:00)
[2018-06-23] MEDS ORDERED: Sodium Chloride 0.9% 500 ML IV ONE ×2 (13:10→13:30)
[2018-06-23] MEDS ORDERED: Sodium Chloride 0.9% 10 ML Syringe FLUSH PRN (13:24)
[2018-06-23] MEDS ORDERED: Sodium Chloride 0.9% 10 ML Syringe IARTIC ONE (13:30)
[2018-06-23] MEDS ORDERED: Iopamidol 612 MG/ML 100 ML Bottle IVPUSH ONE (13:30)
--- NOTE | 2018-06-23 14:29 | CT ---
CT chest Technique: Multiple axial sections through the chest were obtained. Intravenous contrast was utilized. Study has been performed as a pulmonary angiogram protocol. Findings: Filling defects are seen within the proximal segmental branch of the lingula. Minimal filling defects within subsegmental branches within both lower lungs compatible with additional small pulmonary emboli. No larger areas of pulmonary embolism are seen. Mediastinum and hilar regions show no adenopathy or mass. Atherosclerotic calcification is noted within the thoracic aorta. Coronary artery calcification is seen. Small portion of the visualized upper abdominal structures appear within normal limits. Lungs are clear. No acute parenchymal change is seen. No pleural effusions are noted. Scattered endplate osteophytes are seen throughout the thoracic spine. No acute osseous abnormality is appreciated. Impression: 1. Mild amount of pulmonary emboli seen as described above. 2. Other incidental findings. Diagnostic code #5 [employer] [facility] called report to Dr. Nish Aguilar at 14:16 on 06/23/2018
--- NOTE | 2018-06-23 14:54 | PCM.PN ---
<Arti Iniguez - Last Filed: 06/23/18 19:49> - General Info Date of Service: 06/23/18 Admission Dx/Problem (Free Text): Admission Diagnosis/Problem Admission Diagnosis/Problem Congestive heart failure Subjective Update: In to see Lizet. She is sitting in a chair reading. She is doing very well, no current complaints, but does point out that her right hand has heavy bruising from accidently hitting it against the toilet. No pain, numbness or tingling. She is ambulating with nursing, stating she did 2 laps today around the hospital. Updated her on the fact her CTA showed pulmonary emboli, but that she is already on the treatment. Currently waiting for her INR to become therapeutic (around 2) before D/C'ing her back home. She states she understands and agrees with this plan. No concerns from nursing. Functional Status: Reports: Pain Controlled, Tolerating Diet, Ambulating, Urinating - Review of Systems General: Reports: No Symptoms HEENT: Reports: No Symptoms Pulmonary: Reports: No Symptoms Cardiovascular: Reports: No Symptoms Gastrointestinal: Reports: No Symptoms Genitourinary: Reports: No Symptoms Musculoskeletal: Reports: No Symptoms Skin: Reports: Bruising (R hand) Neurological: Reports: No Symptoms Psychiatric: Reports: No Symptoms - Patient Data Vitals - Most Recent: Last Vital Signs Temp 97.3 F 06/23/18 07:15 Pulse 95 06/23/18 07:15 Resp 20 06/23/18 02:57 BP 143/69 H 06/23/18 07:15 Pulse Ox 99 06/23/18 07:15 Weight - Most Recent: 90.537 kg I&O - Last 24 Hours: Intake & Output 06/22/18 06/23/18 06/23/18 22:59 06:59 14:59 Intake Total 848 764 180 Output Total 600 500 Balance 248 264 180 Lab Results Last 24 Hours: Laboratory Results - last 24 hr 06/22/18 06/22/18 06/22/18 Range/Units 17:34 18:07 21:29 WBC (3.98-10.04) K/mm3 RBC (3.98-5.22) M/mm3 Hgb (11.2-15.7) gm/L Hct (34.1-44.9) % MCV (79.4-94.8) fl MCH (25.6-32.2) pg MCHC (32.2-35.5) g/dl RDW Std Deviation (36.4-46.3) fL Plt Count (182-369) K/mm3 MPV (9.4-12.3) fl Neut % (Auto) (34.0-71.1) % Lymph % (Auto) (19.3-51.7) % [place] % (Auto) (4.7-12.5) % Eos % (Auto) (0.7-5.8) Baso % (Auto) (0.1-1.2) % Neut # (Auto) (1.56-6.13) K/mm3 Lymph # (Auto) (1.18-3.74) K/mm3 [place] # (Auto) (0.24-0.36) K/mm3 Eos # (Auto) (0.04-0.36) K/mm3 Baso # (Auto) (0.01-0.08) K/mm3 PT (9.5-12.1) SECONDS INR APTT (24-31) SECONDS D-Dimer, Quantitative 3.36 H (0.19-0.50) mg/L Sodium (136-145) mEq/L Potassium (3.5-5.1) mEq/L Chloride (98-107) mEq/L Carbon Dioxide (21-32) mEq/L Anion Gap (5-15) BUN (7-18) mg/dL Creatinine (0.55-1.02) mg/dL Est Cr Clr Drug Dosing mL/min Estimated GFR (MDRD) (>60) mL/min BUN/Creatinine Ratio (14-18) Glucose (83-115) mg/dL POC Glucose 169 H 186 H (83-110) mg/dL Calcium (8.5-10.1) mg/dL 06/23/18 06/23/18 06/23/18 Range/Units 05:50 05:50 05:50 WBC 6.28 (3.98-10.04) K/mm3 RBC 4.21 (3.98-5.22) M/mm3 Hgb 12.6 (11.2-15.7) gm/L Hct 39.0 (34.1-44.9) % MCV 92.6 (79.4-94.8) fl MCH 29.9 (25.6-32.2) pg MCHC 32.3 (32.2-35.5) g/dl RDW Std Deviation 48.4 H (36.4-46.3) fL Plt Count 276 (182-369) K/mm3 MPV 11.6 (9.4-12.3) fl Neut % (Auto) 63.0 (34.0-71.1) % Lymph % (Auto) 22.6 (19.3-51.7) % [place] % (Auto) 7.6 (4.7-12.5) % Eos % (Auto) 5.7 (0.7-5.8) Baso % (Auto) 0.8 (0.1-1.2) % Neut # (Auto) 3.95 (1.56-6.13) K/mm3 Lymph # (Auto) 1.42 (1.18-3.74) K/mm3 [place] # (Auto) 0.48 H (0.24-0.36) K/mm3 Eos # (Auto) 0.36 (0.04-0.36) K/mm3 Baso # (Auto) 0.05 (0.01-0.08) K/mm3 PT 20.3 H (9.5-12.1) SECONDS INR 1.89 APTT 68 H (24-31) SECONDS D-Dimer, Quantitative (0.19-0.50) mg/L Sodium (136-145) mEq/L Potassium (3.5-5.1) mEq/L Chloride (98-107) mEq/L Carbon Dioxide (21-32) mEq/L Anion Gap (5-15) BUN (7-18) mg/dL Creatinine (0.55-1.02) mg/dL Est Cr Clr Drug Dosing mL/min Estimated GFR (MDRD) (>60) mL/min BUN/Creatinine Ratio (14-18) Glucose (83-115) mg/dL POC Glucose (83-110) mg/dL Calcium (8.5-10.1) mg/dL 06/23/18 06/23/18 06/23/18 Range/Units 05:51 11:00 11:03 WBC (3.98-10.04) K/mm3 RBC (3.98-5.22) M/mm3 Hgb (11.2-15.7) gm/L Hct (34.1-44.9) % MCV (79.4-94.8) fl MCH (25.6-32.2) pg MCHC (32.2-35.5) g/dl RDW Std Deviation (36.4-46.3) fL Plt Count (182-369) K/mm3 MPV (9.4-12.3) fl Neut % (Auto) (34.0-71.1) % Lymph % (Auto) (19.3-51.7) % [place] % (Auto) (4.7-12.5) % Eos % (Auto) (0.7-5.8) Baso % (Auto) (0.1-1.2) % Neut # (Auto) (1.56-6.13) K/mm3 Lymph # (Auto) (1.18-3.74) K/mm3 [place] # (Auto) (0.24-0.36) K/mm3 Eos # (Auto) (0.04-0.36) K/mm3 Baso # (Auto) (0.01-0.08) K/mm3 PT (9.5-12.1) SECONDS INR APTT (24-31) SECONDS D-Dimer, Quantitative (0.19-0.50) mg/L Sodium 137 (136-145) mEq/L Potassium 4.6 (3.5-5.1) mEq/L Chloride 101 (98-107) mEq/L Carbon Dioxide 25 (21-32) mEq/L Anion Gap 15.6 H (5-15) BUN 17 (7-18) mg/dL Creatinine 1.5 H (0.55-1.02) mg/dL Est Cr Clr Drug Dosing 22.20 mL/min Estimated GFR (MDRD) 34 (>60) mL/min BUN/Creatinine Ratio 11.3 L (14-18) Glucose 372 H (83-115) mg/dL POC Glucose 179 H 349 H (83-110) mg/dL Calcium 8.7 (8.5-10.1) mg/dL Med Orders - Current: Current Medications Aspirin (Aspirin) 81 mg PO DAILY [facility] Last Admin: 06/23/18 08:24 Dose: 81 mg Cephalexin (Keflex) 250 mg PO Q6H [facility] Dextrose/Water (Dextrose 50% In Water) 50 ml IVPUSH ASDIRECTED PRN PRN Reason: Hypoglycemia Furosemide (Lasix) 20 mg IVPUSH DAILY [facility] Last Admin: 06/23/18 08:24 Dose: 20 mg Insulin Human Lispro (Humalog) 0 unit SUBCUT QIDACANDBED [facility]; Protocol Last Admin: 06/23/18 12:34 Dose: 4 unit Levothyroxine Sodium (Synthroid) 100 mcg PO ACBREAKFAST [facility] Last Admin: 06/23/18 06:38 Dose: 100 mcg Metoprolol Tartrate (Lopressor) 5 mg IVPUSH Q6H PRN PRN Reason: HR>100 Metoprolol Tartrate (Lopressor) 25 mg PO Q12H [facility] Last Admin: 06/23/18 06:36 Dose: 25 mg Saccharomyces Boulardii (Florastor) 250 mg PO DAILY [facility] Last Admin: 06/23/18 08:21 Dose: 250 mg Simvastatin (Zocor) 20 mg PO BEDTIME [facility] Last Admin: 06/22/18 21:23 Dose: 20 mg Sodium Chloride (Saline Flush) 10 ml FLUSH ASDIRECTED PRN PRN Reason: Keep Vein Open Last Admin: 06/17/18 12:35 Dose: 10 ml Sodium Chloride (Saline Flush) 10 ml FLUSH ONETIME PRN PRN Reason: IV FLUSH Stop: 06/23/18 15:30 Last Admin: 06/23/18 13:54 Dose: 10 ml Warfarin Sodium (Pharmacy To Dose - Warfarin) 0 dose PO ASDIRECTED PRN PRN Reason: RX TO DOSE WARFARIN Warfarin Sodium (Coumadin) 4 mg PO QPM [facility] Stop: 06/23/18 18:01 Discontinued Medications Furosemide (Lasix) 40 mg IVPUSH NOW ONE Stop: 06/17/18 12:21 Last Admin: 06/17/18 12:36 Dose: 40 mg Furosemide (Lasix) 20 mg IVPUSH BID@1000,1800 [facility] Last Admin: 06/22/18 17:45 Dose: 20 mg Diltiazem HCl 125 mg/ Sodium (Chloride) 125 mls @ 10 mls/hr IV TITRATE [facility]; Protocol Last Titration: 06/18/18 12:28 Dose: 0 mg/hr, 0 mls/hr Furosemide 100 mg/ Sodium (Chloride) 100 mls @ 4 mls/hr IV TITRATE [facility] Stop: 06/19/18 18:46 Last Admin: 06/18/18 18:36 Dose: 4 mg/hr, 4 mls/hr Magnesium Sulfate 4 gm/ Premix 100 mls @ 25 mls/hr IV ONETIME ONE Stop: 06/18/18 11:01 Last Admin: 06/18/18 11:26 Dose: 25 mls/hr Heparin Sodium/Dextrose (Heparin 25,000 Units In D5w 500 Ml) 25,000 units in 500 mls @ 20 mls/hr IV TITRATE [facility]; Protocol Last Admin: 06/22/18 18:58 Dose: 949 units/hr, 18.98 mls/hr Magnesium Sulfate 4 gm/ Premix 100 mls @ 25 mls/hr IV ONETIME ONE Stop: 06/18/18 21:01 Last Admin: 06/18/18 20:41 Dose: 25 mls/hr Furosemide 100 mg/ Sodium (Chloride) 100 mls @ 4 mls/hr IV TITRATE [facility]; Protocol Last Admin: 06/19/18 18:18 Dose: 4 mls/hr Magnesium Sulfate 2 gm/ Premix 50 mls @ 25 mls/hr IV ONETIME ONE Stop: 06/21/18 11:59 Last Admin: 06/21/18 11:17 Dose: 25 mls/hr Ceftriaxone Sodium 2 gm/ (Sodium Chloride) 100 mls @ 200 mls/hr IV Q24H ONE Stop: 06/22/18 16:29 Last Admin: 06/22/18 15:24 Dose: 200 mls/hr Sodium Chloride (Normal Saline) 500 mls @ 999 mls/hr IV .BOLUS ONE Stop: 06/23/18 14:00 Last Admin: 06/23/18 13:28 Dose: 999 mls/hr Iopamidol (Isovue-300 (61%)) 100 ml IVPUSH ONETIME ONE Stop: 06/23/18 13:31 Last Admin: 06/23/18 13:54 Dose: 100 ml Levothyroxine Sodium (Synthroid) 88 mcg PO DAILY [facility] Last Admin: 06/19/18 08:26 Dose: 88 mcg Metformin HCl (Glucophage) 500 mg PO BID [facility] Metoprolol Tartrate (Lopressor) 25 mg PO ONETIME ONE Stop: 06/18/18 11:01 Last Admin: 06/18/18 11:25 Dose: 25 mg Potassium Chloride (Klor-Con M20) 40 meq PO Q4H [facility] Stop: 06/20/18 00:01 Last Admin: 06/19/18 23:27 Dose: 40 meq Potassium Chloride (Klor-Con M20) 40 meq PO BID [facility] Stop: 06/22/18 21:01 Last Admin: 06/22/18 21:23 Dose: 40 meq Sodium Chloride (Saline Flush) 20 ml IARTIC ONETIME ONE Stop: 06/23/18 13:31 Warfarin Sodium (Coumadin) 4 mg PO QPM [facility] Stop: 06/19/18 18:01 Last Admin: 06/19/18 17:37 Dose: 4 mg Warfarin Sodium (Coumadin) 4 mg PO QPM [facility] Stop: 06/20/18 18:01 Last Admin: 06/20/18 18:00 Dose: 4 mg Warfarin Sodium (Coumadin) 5 mg PO QPM [facility] Stop: 06/21/18 21:00 Last Admin: 06/21/18 17:42 Dose: 5 mg Warfarin Sodium (Coumadin) 4 mg PO QPM [facility] Stop: 06/22/18 21:00 Last Admin: 06/22/18 17:45 Dose: 4 mg - Exam Quality Assessment: DVT Prophylaxis General: Alert, Oriented HEENT: Pupils Equal, Pupils Reactive, EOMI, Mucous Membr. Moist/[place] Neck: Supple Lungs: Clear to Auscultation, Normal Respiratory Effort Cardiovascular: Regular Rate, Irregular Rhythm GI/Abdominal Exam: Normal Bowel Sounds, Soft, Non-Tender, No Organomegaly, No Distention, No Abnormal Bruit, No Mass, Pelvis Stable (Female) Exam: Deferred Back Exam: Normal Inspection Extremities: Normal Range of Motion, Non-Tender, No Pedal Edema, Normal Capillary Refill, Other (R dorsal hand contusion) Peripheral Pulses: 2+: Posterior Tibial (L), Posterior Tibial (R), Dorsalis Pedis (L), Dorsalis Pedis (R) Skin: Warm, Dry, Intact Neurological: No New Focal Deficit Psy/Mental Status: Alert, Normal Affect, Normal Mood - Problem List & Annotations (1) Pulmonary embolism SNOMED Code(s): 93158716 Code(s): I26.99 - OTHER PULMONARY EMBOLISM WITHOUT ACUTE COR PULMONALE Status: Acute Priority: High Current Visit: Yes Qualifiers: Pulmonary embolism type: unspecified Chronicity: unspecified Acute cor pulmonale presence: without acute cor pulmonale Qualified Code(s): I26.99 - Other pulmonary embolism without acute cor pulmonale (2) Atrial fibrillation with RVR SNOMED Code(s): 294934504106939 Code(s): I48.91 - UNSPECIFIED ATRIAL FIBRILLATION Status: Acute Priority : High Current Visit: Yes (3) Diabetes mellitus SNOMED Code(s): 44226279 Code(s): E11.9 - TYPE 2 DIABETES MELLITUS WITHOUT COMPLICATIONS Status: Chronic Priority: Low Current Visit: Yes Qualifiers: Diabetes mellitus type: type 2 Diabetes mellitus intermediate insulin use: unspecified intermediate insulin use status Diabetes mellitus complication status : without complication Qualified Code(s): E11.9 - Type 2 diabetes mellitus without complications (4) Hyperlipidemia SNOMED Code(s): 39978670 Code(s): E78.5 - HYPERLIPIDEMIA, UNSPECIFIED Status: Chronic Priority: Medium Current Visit: Yes Qualifiers: Hyperlipidemia type: unspecified Qualified Code(s): E78.5 - Hyperlipidemia , unspecified (5) Hypertension SNOMED Code(s): 44083904 Code(s): I10 - ESSENTIAL (PRIMARY) HYPERTENSION Status: Chronic Priority : Medium Current Visit: Yes Qualifiers: Hypertension type: essential hypertension Qualified Code(s): I10 - Essential (primary) hypertension (6) Hypothyroid SNOMED Code(s): 92392363 Code(s): E03.9 - HYPOTHYROIDISM, UNSPECIFIED Status: Chronic Priority: Low Current Visit: Yes Qualifiers: Hypothyroidism type: unspecified Qualified Code(s): E03.9 - Hypothyroidism , unspecified (7) Obesity, morbid, BMI 40.0-49.9 SNOMED Code(s): 098059838, 178969911 Code(s): E66.01 - MORBID (SEVERE) OBESITY DUE TO EXCESS CALORIES Status: Chronic Priority: Medium Current Visit: Yes (8) Vitamin D deficiency, unspecified SNOMED Code(s): 21934662 Code(s): E55.9 - VITAMIN D DEFICIENCY, UNSPECIFIED Status: Chronic Priority: Medium Current Visit: Yes - Problem List Review Problem List Initiated/Reviewed/Updated: Yes - Plan Plan:: Impression: Acutely decompensated heart failure-->>resolving * DHF with valvular disease; HFpEF, LVEF 60-65% * HF likely precipitated by A Fib with RVR * BNP 2164-->1674 * Heart Healthy Diet, Fluid Restriction * Diurese, DC drip at 1830 hour; continue IVP x 24 hours. "New onset" atrial fib * Start UFH followed by Coumadin * BB/Ca channel blockers * INR goal for DC, 2; will need INR 4 days after DC LLE cellulitis--mild * Received Rocephin * Start Keflex 250 mg TID for 5 days PE, mild * Elevated D-dimer * Venous doppler of bilateral LEs on 06/23/18: no evidence of DVT * CT angiography 06/23/18: * Filling defects are seen within the proximal segmental branch of the lingula. Minimal filling defects within subsegmental branches within both lower lungs compatible with additional small pulmonary emboli. No larger areas of pulmonary embolism are seen. * Treatment as above Chronic HTN HLD DM type 2 Obesity, class 3 Hypothyroidism Plan: MS with telemetry, 06/20/18. Home meds Daily labs; replace electrolytes Dietary consults Consult PT/OT/CM DVT/GI prophylaxis DC 48 hours or when INR 2; LOS>96 hours with slow response to therapy. D/C Plan: * Follow up needed PCP/cardiology * INR 4 days after DC * Keflex 250 mg TID <Nish Aguilar T - Last Filed: 06/24/18 07:04> - Patient Data Vitals - Most Recent: Last Vital Signs Temp 36.6 C 06/23/18 21:53 Pulse 75 06/24/18 06:24 Resp 18 06/24/18 03:39 BP 116/58 L 06/24/18 06:24 Pulse Ox 98 06/24/18 03:39 I&O - Last 24 Hours: Intake & Output 06/23/18 06/24/18 06/24/18 22:59 06:59 14:59 Intake Total 1037 400 Output Total 1000 600 Balance 37 -200 Lab Results Last 24 Hours: Laboratory Results - last 24 hr 06/23/18 06/23/18 06/23/18 Range/Units 05:50 05:50 05:50 WBC 6.28 (3.98-10.04) K/mm3 RBC 4.21 (3.98-5.22) M/mm3 Hgb 12.6 (11.2-15.7) gm/L Hct 39.0 (34.1-44.9) % MCV 92.6 (79.4-94.8) fl MCH 29.9 (25.6-32.2) pg MCHC 32.3 (32.2-35.5) g/dl RDW Std Deviation 48.4 H (36.4-46.3) fL Plt Count 276 (182-369) K/mm3 MPV 11.6 (9.4-12.3) fl Neut % (Auto) 63.0 (34.0-71.1) % Lymph % (Auto) 22.6 (19.3-51.7) % [place] % (Auto) 7.6 (4.7-12.5) % Eos % (Auto) 5.7 (0.7-5.8) Baso % (Auto) 0.8 (0.1-1.2) % Neut # (Auto) 3.95 (1.56-6.13) K/mm3 Lymph # (Auto) 1.42 (1.18-3.74) K/mm3 [place] # (Auto) 0.48 H (0.24-0.36) K/mm3 Eos # (Auto) 0.36 (0.04-0.36) K/mm3 Baso # (Auto) 0.05 (0.01-0.08) K/mm3 PT 20.3 H (9.5-12.1) SECONDS INR 1.89 APTT 68 H (24-31) SECONDS Sodium (136-145) mEq/L Potassium (3.5-5.1) mEq/L Chloride (98-107) mEq/L Carbon Dioxide (21-32) mEq/L Anion Gap (5-15) BUN (7-18) mg/dL Creatinine (0.55-1.02) mg/dL Est Cr Clr Drug Dosing mL/min Estimated GFR (MDRD) (>60) mL/min BUN/Creatinine Ratio (14-18) Glucose (83-115) mg/dL POC Glucose (83-110) mg/dL Calcium (8.5-10.1) mg/dL 06/23/18 06/23/18 06/23/18 Range/Units 11:00 11:03 16:36 WBC (3.98-10.04) K/mm3 RBC (3.98-5.22) M/mm3 Hgb (11.2-15.7) gm/L Hct (34.1-44.9) % MCV (79.4-94.8) fl MCH (25.6-32.2) pg MCHC (32.2-35.5) g/dl RDW Std Deviation (36.4-46.3) fL Plt Count (182-369) K/mm3 MPV (9.4-12.3) fl Neut % (Auto) (34.0-71.1) % Lymph % (Auto) (19.3-51.7) % [place] % (Auto) (4.7-12.5) % Eos % (Auto) (0.7-5.8) Baso % (Auto) (0.1-1.2) % Neut # (Auto) (1.56-6.13) K/mm3 Lymph # (Auto) (1.18-3.74) K/mm3 [place] # (Auto) (0.24-0.36) K/mm3 Eos # (Auto) (0.04-0.36) K/mm3 Baso # (Auto) (0.01-0.08) K/mm3 PT (9.5-12.1) SECONDS INR APTT (24-31) SECONDS Sodium 137 (136-145) mEq/L Potassium 4.6 (3.5-5.1) mEq/L Chloride 101 (98-107) mEq/L Carbon Dioxide 25 (21-32) mEq/L Anion Gap 15.6 H (5-15) BUN 17 (7-18) mg/dL Creatinine 1.5 H (0.55-1.02) mg/dL Est Cr Clr Drug Dosing 22.20 mL/min Estimated GFR (MDRD) 34 (>60) mL/min BUN/Creatinine Ratio 11.3 L (14-18) Glucose 372 H (83-115) mg/dL POC Glucose 349 H 193 H (83-110) mg/dL Calcium 8.7 (8.5-10.1) mg/dL 06/23/18 06/24/18 06/24/18 Range/Units 21:56 06:08 06:46 WBC 6.53 (3.98-10.04) K/mm3 RBC 4.16 (3.98-5.22) M/mm3 Hgb 12.3 (11.2-15.7) gm/L Hct 38.6 (34.1-44.9) % MCV 92.8 (79.4-94.8) fl MCH 29.6 (25.6-32.2) pg MCHC 31.9 L (32.2-35.5) g/dl RDW Std Deviation 49.7 H (36.4-46.3) fL Plt Count 306 (182-369) K/mm3 MPV 10.9 (9.4-12.3) fl Neut % (Auto) 74.6 H (34.0-71.1) % Lymph % (Auto) 11.6 L (19.3-51.7) % [place] % (Auto) 8.0 (4.7-12.5) % Eos % (Auto) 4.9 (0.7-5.8) Baso % (Auto) 0.6 (0.1-1.2) % Neut # (Auto) 4.87 (1.56-6.13) K/mm3 Lymph # (Auto) 0.76 L (1.18-3.74) K/mm3 [place] # (Auto) 0.52 H (0.24-0.36) K/mm3 Eos # (Auto) 0.32 (0.04-0.36) K/mm3 Baso # (Auto) 0.04 (0.01-0.08) K/mm3 PT (9.5-12.1) SECONDS INR APTT (24-31) SECONDS Sodium (136-145) mEq/L Potassium (3.5-5.1) mEq/L Chloride (98-107) mEq/L Carbon Dioxide (21-32) mEq/L Anion Gap (5-15) BUN (7-18) mg/dL Creatinine (0.55-1.02) mg/dL Est Cr Clr Drug Dosing mL/min Estimated GFR (MDRD) (>60) mL/min BUN/Creatinine Ratio (14-18) Glucose (83-115) mg/dL POC Glucose 159 H 144 H (83-110) mg/dL Calcium (8.5-10.1) mg/dL Med Orders - Current: Current Medications Acetaminophen (Tylenol) 650 mg PO Q6H PRN PRN Reason: Pain (mild 1-3) Aspirin (Aspirin) 81 mg PO DAILY [facility] Last Admin: 06/23/18 08:24 Dose: 81 mg Cephalexin (Keflex) 250 mg PO Q6H [facility] Last Admin: 06/24/18 03:36 Dose: 250 mg Dextrose/Water (Dextrose 50% In Water) 50 ml IVPUSH ASDIRECTED PRN PRN Reason: Hypoglycemia Furosemide (Lasix) 20 mg IVPUSH DAILY [facility] Last Admin: 06/23/18 08:24 Dose: 20 mg Insulin Human Lispro (Humalog) 0 unit SUBCUT QIDACANDBED [facility]; Protocol Last Admin: 06/24/18 06:52 Dose: Not Given Levothyroxine Sodium (Synthroid) 100 mcg PO ACBREAKFAST [facility] Last Admin: 06/24/18 06:23 Dose: 100 mcg Metoprolol Tartrate (Lopressor) 5 mg IVPUSH Q6H PRN PRN Reason: HR>100 Metoprolol Tartrate (Lopressor) 25 mg PO Q12H [facility] Last Admin: 06/24/18 06:24 Dose: 25 mg Saccharomyces Boulardii (Florastor) 250 mg PO DAILY [facility] Last Admin: 06/23/18 08:21 Dose: 250 mg Simvastatin (Zocor) 20 mg PO BEDTIME [facility] Last Admin: 06/23/18 22:07 Dose: 20 mg Sodium Chloride (Saline Flush) 10 ml FLUSH ASDIRECTED PRN PRN Reason: Keep Vein Open Last Admin: 06/17/18 12:35 Dose: 10 ml Warfarin Sodium (Pharmacy To Dose - Warfarin) 0 dose PO ASDIRECTED PRN PRN Reason: RX TO DOSE WARFARIN Discontinued Medications Furosemide (Lasix) 40 mg IVPUSH NOW ONE Stop: 06/17/18 12:21 Last Admin: 06/17/18 12:36 Dose: 40 mg Furosemide (Lasix) 20 mg IVPUSH BID@1000,1800 [facility] Last Admin: 06/22/18 17:45 Dose: 20 mg Diltiazem HCl 125 mg/ Sodium (Chloride) 125 mls @ 10 mls/hr IV TITRATE [facility]; Protocol Last Titration: 06/18/18 12:28 Dose: 0 mg/hr, 0 mls/hr Furosemide 100 mg/ Sodium (Chloride) 100 mls @ 4 mls/hr IV TITRATE [facility] Stop: 06/19/18 18:46 Last Admin: 06/18/18 18:36 Dose: 4 mg/hr, 4 mls/hr Magnesium Sulfate 4 gm/ Premix 100 mls @ 25 mls/hr IV ONETIME ONE Stop: 06/18/18 11:01 Last Admin: 06/18/18 11:26 Dose: 25 mls/hr Heparin Sodium/Dextrose (Heparin 25,000 Units In D5w 500 Ml) 25,000 units in 500 mls @ 20 mls/hr IV TITRATE [facility]; Protocol Last Admin: 06/22/18 18:58 Dose: 949 units/hr, 18.98 mls/hr Magnesium Sulfate 4 gm/ Premix 100 mls @ 25 mls/hr IV ONETIME ONE Stop: 06/18/18 21:01 Last Admin: 06/18/18 20:41 Dose: 25 mls/hr Furosemide 100 mg/ Sodium (Chloride) 100 mls @ 4 mls/hr IV TITRATE [facility]; Protocol Last Admin: 06/19/18 18:18 Dose: 4 mls/hr Magnesium Sulfate 2 gm/ Premix 50 mls @ 25 mls/hr IV ONETIME ONE Stop: 06/21/18 11:59 Last Admin: 06/21/18 11:17 Dose: 25 mls/hr Ceftriaxone Sodium 2 gm/ (Sodium Chloride) 100 mls @ 200 mls/hr IV Q24H [facility] Stop: 06/22/18 16:29 Last Admin: 06/22/18 15:24 Dose: 200 mls/hr Sodium Chloride (Normal Saline) 500 mls @ 999 mls/hr IV .BOLUS ONE Stop: 06/23/18 14:00 Last Admin: 06/23/18 13:28 Dose: 999 mls/hr Iopamidol (Isovue-300 (61%)) 100 ml IVPUSH ONETIME ONE Stop: 06/23/18 13:31 Last Admin: 06/23/18 13:54 Dose: 100 ml Levothyroxine Sodium (Synthroid) 88 mcg PO DAILY ROXIE Last Admin: 06/19/18 08:26 Dose: 88 mcg Metformin HCl (Glucophage) 500 mg PO BID ROXIE Metoprolol Tartrate (Lopressor) 25 mg PO ONETIME ONE Stop: 06/18/18 11:01 Last Admin: 06/18/18 11:25 Dose: 25 mg Potassium Chloride (Klor-Con M20) 40 meq PO Q4H ROXIE Stop: 06/20/18 00:01 Last Admin: 06/19/18 23:27 Dose: 40 meq Potassium Chloride (Klor-Con M20) 40 meq PO BID ROXIE Stop: 06/22/18 21:01 Last Admin: 06/22/18 21:23 Dose: 40 meq Sodium Chloride (Saline Flush) 10 ml FLUSH ONETIME PRN PRN Reason: IV FLUSH Stop: 06/23/18 15:30 Last Admin: 06/23/18 13:54 Dose: 10 ml Sodium Chloride (Saline Flush) 20 ml IARTIC ONETIME ONE Stop: 06/23/18 13:31 Last Admin: 06/23/18 19:48 Dose: Not Given Warfarin Sodium (Coumadin) 4 mg PO QPM ROXIE Stop: 06/19/18 18:01 Last Admin: 06/19/18 17:37 Dose: 4 mg Warfarin Sodium (Coumadin) 4 mg PO QPM ROXIE Stop: 06/20/18 18:01 Last Admin: 06/20/18 18:00 Dose: 4 mg Warfarin Sodium (Coumadin) 5 mg PO QPM ROXIE Stop: 06/21/18 21:00 Last Admin: 06/21/18 17:42 Dose: 5 mg Warfarin Sodium (Coumadin) 4 mg PO QPM ROXIE Stop: 06/22/18 21:00 Last Admin: 06/22/18 17:45 Dose: 4 mg Warfarin Sodium (Coumadin) 4 mg PO QPM ROXIE Stop: 06/23/18 18:01 Last Admin: 06/23/18 17:45 Dose: 4 mg - My Orders Last 24 Hours: My Active Orders 06/24/18 05:00 Acetaminophen [Tylenol] 650 mg PO Q6H PRN - Plan Plan:: Spoke to her and at bedside and updated them about her tests results, diagnoses, treatment and discharge care plan. She was provided with educational materials for new diabetic medications.
[2018-06-23] MEDS: Cephalexin 250 MG Cap PO SCH ×2 (17:50→22:08)
[2018-06-23] MEDS ORDERED: Warfarin 4 MG Tab PO SCH (18:00)
[2018-06-23] MEDS: Simvastatin 20 MG Tab PO SCH (22:07)
[2018-06-24] MEDS: Cephalexin 250 MG Cap PO SCH ×2 (03:36→09:15)
[2018-06-24] MEDS ORDERED: Acetaminophen 325 MG Tab PO PRN (05:00)
[2018-06-24] MEDS: Levothyroxine 100 MCG Tab PO SCH (06:23)
[2018-06-24] MEDS: Metoprolol Tartrate 25 MG Tab PO SCH (06:24)
[2018-06-24] MEDS: Insulin Lispro 100 UNIT/ML 10 ML VIAL SUBCUT SCH ×2 (06:52→11:47)
[2018-06-24] MEDS: Saccharomyces Boulardii (Probiotic) 250 MG Cap PO SCH (09:15)
[2018-06-24] MEDS: Aspirin 81 MG Tab.Chew PO SCH (09:28)
[2018-06-24 13:16] VITALS: BP 127/65
--- NOTE | 2018-06-24 16:37 | PCM.DCSUM1 ---
Discharge Summary - Hospital Course Diagnosis: Stroke: No Modified Gagan Scale: No Symptoms at All Modified Gagan Scale Score: 0 - Discharge Data Discharge Date: 06/24/18 Discharge Disposition: Home, Self-Care 01 Condition: Good - Discharge Diagnosis/Problem(s) (1) Atrial fibrillation with RVR SNOMED Code(s): 653149624759730 ICD Code: I48.91 - UNSPECIFIED ATRIAL FIBRILLATION Status: Resolved Priority: High Current Visit: Yes (2) Pulmonary embolism SNOMED Code(s): 39157190 ICD Code: I26.99 - OTHER PULMONARY EMBOLISM WITHOUT ACUTE COR PULMONALE Status: Acute Priority: High Current Visit: Yes Qualifiers: Pulmonary embolism type: unspecified Chronicity: unspecified Acute cor pulmonale presence: without acute cor pulmonale Qualified Code(s): I26.99 - Other pulmonary embolism without acute cor pulmonale (3) Diabetes mellitus SNOMED Code(s): 90839249 ICD Code: E11.9 - TYPE 2 DIABETES MELLITUS WITHOUT COMPLICATIONS Status: Chronic Priority: Low Current Visit: Yes Qualifiers: Diabetes mellitus type: type 2 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 insulin use status Diabetes mellitus complication status : without complication Qualified Code(s): E11.9 - Type 2 diabetes mellitus without complications (4) Hyperlipidemia SNOMED Code(s): 62630040 ICD Code: E78.5 - HYPERLIPIDEMIA, UNSPECIFIED Status: Chronic Priority: Medium Current Visit: Yes Qualifiers: Hyperlipidemia type: unspecified Qualified Code(s): E78.5 - Hyperlipidemia , unspecified (5) Hypertension SNOMED Code(s): 08868907 ICD Code: I10 - ESSENTIAL (PRIMARY) HYPERTENSION Status: Chronic Priority : Medium Current Visit: Yes Qualifiers: Hypertension type: essential hypertension Qualified Code(s): I10 - Essential (primary) hypertension (6) Hypothyroid SNOMED Code(s): 93003555 ICD Code: E03.9 - HYPOTHYROIDISM, UNSPECIFIED Status: Chronic Priority: Low Current Visit: Yes Qualifiers: Hypothyroidism type: unspecified Qualified Code(s): E03.9 - Hypothyroidism , unspecified (7) Obesity, morbid, BMI 40.0-49.9 SNOMED Code(s): 529997009, 093385779 ICD Code: E66.01 - MORBID (SEVERE) OBESITY DUE TO EXCESS CALORIES Status: Chronic Priority: Medium Current Visit: Yes (8) Vitamin D deficiency, unspecified SNOMED Code(s): 14826279 ICD Code: E55.9 - VITAMIN D DEFICIENCY, UNSPECIFIED Status: Chronic Priority: Medium Current Visit: Yes (9) Peripheral edema SNOMED Code(s): 768035971 ICD Code: R60.9 - EDEMA, UNSPECIFIED Status: Chronic Current Visit: Yes (10) Stasis dermatitis SNOMED Code(s): 61458462 ICD Code: I87.2 - VENOUS INSUFFICIENCY (CHRONIC) (PERIPHERAL) Status: Chronic Current Visit: Yes Qualifiers: Laterality: left Qualified Code(s): I87.2 - Venous insufficiency (chronic) (peripheral) - Patient Summary/Data Consults: Consultations 06/18/18 10:47 Consult to Occupational Therapy [OT Evaluation and Treatment] [CONS] Routine PT Evaluation and Treatment [CONS] Routine - Patient Instructions Diet: Heart Healthy Diet, Low Sodium, Diabetic Diet, Weight Loss Diet Activity: As Tolerated Driving: Do Not Drive Showering/Bathing: May Shower Notify Provider of: Fever, Increased Pain, Swelling and Redness, Drainage, Nausea and/or Vomiting Other/Special Instructions: - Please take all new medications as directed. - Resume all home medications and routine home activities as tolerated. - Recommend repeat INR level through your PCP's office. - Call or follow up with your PCP for any questions or concerns after discharge. - Follow up with your PCP in 1 week w/ INR level. - Come back or seek immediate care should your symptoms persist or get worse - Discharge Plan *PRESCRIPTION DRUG MONITORING PROGRAM REVIEWED*: Not Applicable *COPY OF PRESCRIPTION DRUG MONITORING REPORT IN PATIENT JAVI: Not Applicable Prescriptions/Med Rec: Metoprolol Tartrate [Lopressor] 25 mg PO Q12H #60 tablet Warfarin [Coumadin] 2.5 mg PO DAILY #30 tab Home Medications: Home Meds Ca Carbonate/Vitamin D3/Vit K [Calcium + D Soft Chewable Tab] 1 tab PO BID 12/13 [History] Levothyroxine [Synthroid] 88 mcg PO DAILY 12/13/14 [History] Potassium Chloride [Klor-Con 10] 10 meq PO DAILY 12/13/14 [History] atorvaSTATin [Lipitor] 20 mg PO BEDTIME 12/13/14 [History] metFORMIN [Glucophage] 500 mg PO BID 12/13/14 [History] Furosemide [Lasix] 20 mg PO DAILY 06/07/17 [History] Losartan [Cozaar] 50 mg PO DAILY 06/07/17 [History] Multivitamin [Multivitamins] 1 each PO DAILY 06/07/17 [History] Metoprolol Tartrate [Lopressor] 25 mg PO Q12H #60 tablet 06/24/18 [Rx] Warfarin [Coumadin] 2.5 mg PO DAILY #30 tab 06/24/18 [Rx] Patient Handouts: Bleeding Precautions When on Anticoagulant Therapy, Adult, Vitamin K Foods and Warfarin, What You Need to Know About Warfarin, Heart Failure, [id number], Atrial Fibrillation, [id number] Referrals: Ashley Back MD [Primary Care Provider] - 07/04/18 9:45 am ( please attend the follow up appointment scheduled with your primary care provider) - General Info Date of Service: 06/24/18 Admission Dx/Problem (Free Text: Admission Diagnosis/Problem Admission Diagnosis/Problem Congestive heart failure Subjective Update: In to see Lizet. She is sitting in a chair reading. She is doing very well, no current complaints, but does point out that her right hand has heavy bruising from accidently hitting it against the toilet. No pain, numbness or tingling. She is ambulating with nursing, stating she did 2 laps today around the hospital. Updated her on the fact her CTA showed pulmonary emboli, but that she is already on the treatment. Currently waiting for her INR to become therapeutic (around 2) before D/C'ing her back home. She states she understands and agrees with this plan. No concerns from nursing. Functional Status: Reports: Pain Controlled, Tolerating Diet, Ambulating, Urinating - Patient Data Vitals - Most Recent: Last Vital Signs Temp 35.9 C 06/24/18 10:44 Pulse 86 06/24/18 10:44 Resp 16 06/24/18 10:44 BP 127/65 06/24/18 10:44 Pulse Ox 96 06/24/18 10:44 Weight - Most Recent: 90.407 kg I&O - Last 24 hours: Intake & Output 06/24/18 06/24/18 06/24/18 06:59 14:59 22:59 Intake Total 400 580 Output Total 600 Balance -200 580 Lab Results - Last 24 hrs: Laboratory Results - last 24 hr 06/18/18 06/23/18 06/23/18 Range/Units 20:39 16:36 21:56 WBC (3.98-10.04) K/mm3 RBC (3.98-5.22) M/mm3 Hgb (11.2-15.7) gm/L Hct (34.1-44.9) % MCV (79.4-94.8) fl MCH (25.6-32.2) pg MCHC (32.2-35.5) g/dl RDW Std Deviation (36.4-46.3) fL Plt Count (182-369) K/mm3 MPV (9.4-12.3) fl Neut % (Auto) (34.0-71.1) % Lymph % (Auto) (19.3-51.7) % Noble % (Auto) (4.7-12.5) % Eos % (Auto) (0.7-5.8) Baso % (Auto) (0.1-1.2) % Neut # (Auto) (1.56-6.13) K/mm3 Lymph # (Auto) (1.18-3.74) K/mm3 Noble # (Auto) (0.24-0.36) K/mm3 Eos # (Auto) (0.04-0.36) K/mm3 Baso # (Auto) (0.01-0.08) K/mm3 PT (9.5-12.1) SECONDS INR Sodium (136-145) mEq/L Potassium (3.5-5.1) mEq/L Chloride (98-107) mEq/L Carbon Dioxide (21-32) mEq/L Anion Gap (5-15) BUN (7-18) mg/dL Creatinine (0.55-1.02) mg/dL Est Cr Clr Drug Dosing mL/min Estimated GFR (MDRD) (>60) mL/min BUN/Creatinine Ratio (14-18) Glucose (83-115) mg/dL POC Glucose 360 H 193 H 159 H (83-110) mg/dL Calcium (8.5-10.1) mg/dL Magnesium (1.8-2.4) mg/dl C-Reactive Protein (<1.0) mg/dL NT-Pro-B Natriuret Pep (0-450) pg/mL 06/24/18 06/24/18 06/24/18 Range/Units 06:08 06:08 06:08 WBC 6.53 (3.98-10.04) K/mm3 RBC 4.16 (3.98-5.22) M/mm3 Hgb 12.3 (11.2-15.7) gm/L Hct 38.6 (34.1-44.9) % MCV 92.8 (79.4-94.8) fl MCH 29.6 (25.6-32.2) pg MCHC 31.9 L (32.2-35.5) g/dl RDW Std Deviation 49.7 H (36.4-46.3) fL Plt Count 306 (182-369) K/mm3 MPV 10.9 (9.4-12.3) fl Neut % (Auto) 74.6 H (34.0-71.1) % Lymph % (Auto) 11.6 L (19.3-51.7) % Noble % (Auto) 8.0 (4.7-12.5) % Eos % (Auto) 4.9 (0.7-5.8) Baso % (Auto) 0.6 (0.1-1.2) % Neut # (Auto) 4.87 (1.56-6.13) K/mm3 Lymph # (Auto) 0.76 L (1.18-3.74) K/mm3 Noble # (Auto) 0.52 H (0.24-0.36) K/mm3 Eos # (Auto) 0.32 (0.04-0.36) K/mm3 Baso # (Auto) 0.04 (0.01-0.08) K/mm3 PT (9.5-12.1) SECONDS INR Sodium 140 (136-145) mEq/L Potassium 4.2 (3.5-5.1) mEq/L Chloride 104 (98-107) mEq/L Carbon Dioxide 26 (21-32) mEq/L Anion Gap 14.2 (5-15) BUN 18 (7-18) mg/dL Creatinine 1.4 H (0.55-1.02) mg/dL Est Cr Clr Drug Dosing 23.79 mL/min Estimated GFR (MDRD) 36 (>60) mL/min BUN/Creatinine Ratio 12.9 L (14-18) Glucose 155 H (83-115) mg/dL POC Glucose (83-110) mg/dL Calcium 9.6 (8.5-10.1) mg/dL Magnesium 2.0 (1.8-2.4) mg/dl C-Reactive Protein 0.5 (<1.0) mg/dL NT-Pro-B Natriuret Pep 1771 H (0-450) pg/mL 06/24/18 06/24/18 06/24/18 Range/Units 06:08 06:46 10:42 WBC (3.98-10.04) K/mm3 RBC (3.98-5.22) M/mm3 Hgb (11.2-15.7) gm/L Hct (34.1-44.9) % MCV (79.4-94.8) fl MCH (25.6-32.2) pg MCHC (32.2-35.5) g/dl RDW Std Deviation (36.4-46.3) fL Plt Count (182-369) K/mm3 MPV (9.4-12.3) fl Neut % (Auto) (34.0-71.1) % Lymph % (Auto) (19.3-51.7) % Noble % (Auto) (4.7-12.5) % Eos % (Auto) (0.7-5.8) Baso % (Auto) (0.1-1.2) % Neut # (Auto) (1.56-6.13) K/mm3 Lymph # (Auto) (1.18-3.74) K/mm3 Noble # (Auto) (0.24-0.36) K/mm3 Eos # (Auto) (0.04-0.36) K/mm3 Baso # (Auto) (0.01-0.08) K/mm3 PT 23.0 H (9.5-12.1) SECONDS INR 2.14 Sodium (136-145) mEq/L Potassium (3.5-5.1) mEq/L Chloride (98-107) mEq/L Carbon Dioxide (21-32) mEq/L Anion Gap (5-15) BUN (7-18) mg/dL Creatinine (0.55-1.02) mg/dL Est Cr Clr Drug Dosing mL/min Estimated GFR (MDRD) (>60) mL/min BUN/Creatinine Ratio (14-18) Glucose (83-115) mg/dL POC Glucose 144 H 319 H (83-110) mg/dL Calcium (8.5-10.1) mg/dL Magnesium (1.8-2.4) mg/dl C-Reactive Protein (<1.0) mg/dL NT-Pro-B Natriuret Pep (0-450) pg/mL Med Orders - Current: Current Medications Acetaminophen (Tylenol) 650 mg PO Q6H PRN PRN Reason: Pain (mild 1-3) Aspirin (Aspirin) 81 mg PO DAILY [facility] Last Admin: 06/24/18 09:28 Dose: Not Given Cephalexin (Keflex) 250 mg PO Q6H [facility] Last Admin: 06/24/18 09:15 Dose: 250 mg Dextrose/Water (Dextrose 50% In Water) 50 ml IVPUSH ASDIRECTED PRN PRN Reason: Hypoglycemia Furosemide (Lasix) 20 mg IVPUSH DAILY [facility] Last Admin: 06/23/18 08:24 Dose: 20 mg Insulin Human Lispro (Humalog) 0 unit SUBCUT QIDACANDBED [facility]; Protocol Last Admin: 06/24/18 11:47 Dose: 12 unit Levothyroxine Sodium (Synthroid) 100 mcg PO ACBREAKFAST [facility] Last Admin: 06/24/18 06:23 Dose: 100 mcg Metoprolol Tartrate (Lopressor) 5 mg IVPUSH Q6H PRN PRN Reason: HR>100 Metoprolol Tartrate (Lopressor) 25 mg PO Q12H [facility] Last Admin: 06/24/18 06:24 Dose: 25 mg Saccharomyces Boulardii (Florastor) 250 mg PO DAILY [facility] Last Admin: 06/24/18 09:15 Dose: 250 mg Simvastatin (Zocor) 20 mg PO BEDTIME [facility] Last Admin: 06/23/18 22:07 Dose: 20 mg Sodium Chloride (Saline Flush) 10 ml FLUSH ASDIRECTED PRN PRN Reason: Keep Vein Open Last Admin: 06/17/18 12:35 Dose: 10 ml Warfarin Sodium (Pharmacy To Dose - Warfarin) 0 dose PO ASDIRECTED PRN PRN Reason: RX TO DOSE WARFARIN Warfarin Sodium (Coumadin) 4 mg PO QPM ROXIE Stop: 06/24/18 18:01 Discontinued Medications Furosemide (Lasix) 40 mg IVPUSH NOW ONE Stop: 06/17/18 12:21 Last Admin: 06/17/18 12:36 Dose: 40 mg Furosemide (Lasix) 20 mg IVPUSH BID@1000,1800 ROXIE Last Admin: 06/22/18 17:45 Dose: 20 mg Diltiazem HCl 125 mg/ Sodium (Chloride) 125 mls @ 10 mls/hr IV TITRATE ROXIE; Protocol Last Titration: 06/18/18 12:28 Dose: 0 mg/hr, 0 mls/hr Furosemide 100 mg/ Sodium (Chloride) 100 mls @ 4 mls/hr IV TITRATE ROXIE Stop: 06/19/18 18:46 Last Admin: 06/18/18 18:36 Dose: 4 mg/hr, 4 mls/hr Magnesium Sulfate 4 gm/ Premix 100 mls @ 25 mls/hr IV ONETIME ONE Stop: 06/18/18 11:01 Last Admin: 06/18/18 11:26 Dose: 25 mls/hr Heparin Sodium/Dextrose (Heparin 25,000 Units In D5w 500 Ml) 25,000 units in 500 mls @ 20 mls/hr IV TITRATE ROXIE; Protocol Last Admin: 06/22/18 18:58 Dose: 949 units/hr, 18.98 mls/hr Magnesium Sulfate 4 gm/ Premix 100 mls @ 25 mls/hr IV ONETIME ONE Stop: 06/18/18 21:01 Last Admin: 06/18/18 20:41 Dose: 25 mls/hr Furosemide 100 mg/ Sodium (Chloride) 100 mls @ 4 mls/hr IV TITRATE ROXIE; Protocol Last Admin: 06/19/18 18:18 Dose: 4 mls/hr Magnesium Sulfate 2 gm/ Premix 50 mls @ 25 mls/hr IV ONETIME ONE Stop: 06/21/18 11:59 Last Admin: 06/21/18 11:17 Dose: 25 mls/hr Ceftriaxone Sodium 2 gm/ (Sodium Chloride) 100 mls @ 200 mls/hr IV Q24H ONE Stop: 06/22/18 16:29 Last Admin: 06/22/18 15:24 Dose: 200 mls/hr Sodium Chloride (Normal Saline) 500 mls @ 999 mls/hr IV .BOLUS ONE Stop: 06/23/18 14:00 Last Admin: 06/23/18 13:28 Dose: 999 mls/hr Iopamidol (Isovue-300 (61%)) 100 ml IVPUSH ONETIME ONE Stop: 06/23/18 13:31 Last Admin: 06/23/18 13:54 Dose: 100 ml Levothyroxine Sodium (Synthroid) 88 mcg PO DAILY [facility] Last Admin: 06/19/18 08:26 Dose: 88 mcg Metformin HCl (Glucophage) 500 mg PO BID [facility] Metoprolol Tartrate (Lopressor) 25 mg PO ONETIME ONE Stop: 06/18/18 11:01 Last Admin: 06/18/18 11:25 Dose: 25 mg Potassium Chloride (Klor-Con M20) 40 meq PO Q4H ROXIE Stop: 06/20/18 00:01 Last Admin: 06/19/18 23:27 Dose: 40 meq Potassium Chloride (Klor-Con M20) 40 meq PO BID [facility] Stop: 06/22/18 21:01 Last Admin: 06/22/18 21:23 Dose: 40 meq Sodium Chloride (Saline Flush) 10 ml FLUSH ONETIME PRN PRN Reason: IV FLUSH Stop: 06/23/18 15:30 Last Admin: 06/23/18 13:54 Dose: 10 ml Sodium Chloride (Saline Flush) 20 ml IARTIC ONETIME ONE Stop: 06/23/18 13:31 Last Admin: 06/23/18 19:48 Dose: Not Given Warfarin Sodium (Coumadin) 4 mg PO QPM [facility] Stop: 06/19/18 18:01 Last Admin: 06/19/18 17:37 Dose: 4 mg Warfarin Sodium (Coumadin) 4 mg PO QPM [facility] Stop: 06/20/18 18:01 Last Admin: 06/20/18 18:00 Dose: 4 mg Warfarin Sodium (Coumadin) 5 mg PO QPM ROXIE Stop: 06/21/18 21:00 Last Admin: 06/21/18 17:42 Dose: 5 mg Warfarin Sodium (Coumadin) 4 mg PO QPM ROXIE Stop: 06/22/18 21:00 Last Admin: 06/22/18 17:45 Dose: 4 mg Warfarin Sodium (Coumadin) 4 mg PO QPM [facility] Stop: 06/23/18 18:01 Last Admin: 06/23/18 17:45 Dose: 4 mg
[2018-06-24] MEDS ORDERED: Warfarin 4 MG Tab PO SCH (18:00)
== END 2018-06-24 15:05 | disposition home or self-care (01) | DRG 291 ==
LOC: JD.ED 11:53 → JD.MS 14:45 → JD.ICU 15:10 → JD.MS 06-20 20:02
PROVIDERS: ADMIT Internal Medicine Cardiovascular Disease; ATTEND Internal Medicine Cardiovascular Disease
DX: I11.0 Hypertensive heart disease with heart failure (principal); I26.99 Other pulmonary embolism without acute cor pulmonale; Z68.41 Body mass index [BMI] 40.0-44.9, adult; I50.9 Heart failure, unspecified; L03.116 Cellulitis of left lower limb; I48.91 Unspecified atrial fibrillation; I50.33 Acute on chronic diastolic (congestive) heart failure; E78.00 Pure hypercholesterolemia, unspecified; E66.9 Obesity, unspecified; R09.02 Hypoxemia; M19.90 Unspecified osteoarthritis, unspecified site; E11.9 Type 2 diabetes mellitus without complications; E03.9 Hypothyroidism, unspecified; M85.80 Other specified disorders of bone density and structure, unspecified site; M81.0 Age-related osteoporosis without current pathological fracture; E55.9 Vitamin D deficiency, unspecified; R32 Unspecified urinary incontinence; H54.7 Unspecified visual loss; Z90.49 Acquired absence of other specified parts of digestive tract; Z88.1 Allergy status to other antibiotic agents; Z88.8 Allergy status to other drugs, medicaments and biological substances; L53.9 Erythematous condition, unspecified; R06.01 Orthopnea; R06.02 Shortness of breath; R06.00 Dyspnea, unspecified; Z87.440 Personal history of urinary (tract) infections; Z79.82 Long term (current) use of aspirin; Z79.899 Other long term (current) drug therapy; Z79.84 Long term (current) use of oral hypoglycemic drugs; E66.01 Morbid (severe) obesity due to excess calories; I87.2 Venous insufficiency (chronic) (peripheral)
CPT/HCPCS: 36415; 51702; 71045; 80053; 83880; 84484; 85025; 93005; 96374; 99285; J1940; 71275; 71275-26; 80048; 80061; 81001; 82962; 83036; 83735; 84439; 84443; 85049; 85379; 85610; 85730; 86140; 93010; 93306; 93970; 93970-26; 97110-GP; 97112-GP; 97116-GP; 97162-GP; 97165-GO; 97530-GO; 97530-GP; 99284; A9270-GY; J0696; J1644; J1815-GY; J3475; J3490; J7030; J7040; Q9967

== ENCOUNTER 2019-02-04 13:39 | Emergency (ER) | payer MEDICARE, OTHER ==
[2019-02-04 13:50] VITALS: BP 150/126; PULSE 96
--- NOTE | 2019-02-04 13:56 | EDM.PDOC ---
ED HPI GENERAL MEDICAL PROBLEM - General Chief Complaint: Lower Extremity Injury/Pain Stated Complaint: L THIGH PAIN-FALL Time Seen by Provider: 02/04/19 13:50 Source of Information: Reports: Patient History Limitations: Reports: No Limitations - History of Present Illness INITIAL COMMENTS - FREE TEXT/NARRATIVE: The patient presents with left leg pain. She was at the [employer] today and serving [employer]. Another lady was helping her and she was going to pass out and the patient tried helping her and they both fell. The patient is on blood thinners and she did not hit her head or hurt her neck. She has pain to the back of her left upper leg. She has no chest pain, abdominal pain, back pain, arm pain or hip pain. She can walk on it but it does hurt. Onset: Sudden Duration: Minutes: Location: Reports: Lower Extremity, Left (Posterior thigh) Quality: Reports: Sharp Severity: Moderate Improves with: Reports: Immobilization Worsens with: Reports: Movement Context: Reports: Trauma (Fall) Associated Symptoms: Reports: No Other Symptoms Left Leg Pain Score (Numeric/FACES): 8 - Related Data Allergies Allergy/AdvReac Type Severity Reaction Status Date / Time nitrofurantoin Allergy Cannot Verified 02/04/19 13:50 [From Macrobid] Remember nitrofurantoin Allergy Cannot Verified 02/04/19 13:50 macrocrystalline Remember [From Macrobid] quinapril HCl [From Accupril] AdvReac Cough Verified 02/04/19 13:50 Home Meds: Home Meds Ca Carbonate/Vitamin D3/Vit K [Calcium + D Soft Chewable Tab] 600 mg PO BID 02/17 [History] Levothyroxine [Synthroid] 88 mcg PO DAILY 12/13/14 [History] Potassium Chloride [Klor-Con 10] 10 meq PO DAILY 12/13/14 [History] atorvaSTATin [Lipitor] 20 mg PO BEDTIME 12/13/14 [History] metFORMIN [Glucophage] 1,000 mg PO BID 12/13/14 [History] Furosemide [Lasix] 20 mg PO DAILY 06/07/17 [History] Losartan [Cozaar] 50 mg PO DAILY 06/07/17 [History] Multivitamin [Multivitamins] 1 each PO DAILY 06/07/17 [History] Metoprolol Tartrate [Lopressor] 25 mg PO Q12H #60 tablet 06/24/18 [Rx] Warfarin [Coumadin] 2.5 mg PO DAILY #30 tab 06/24/18 [Rx] Past Medical History HEENT History: Reports: Cataract, Impaired Vision Cardiovascular History: Reports: High Cholesterol, Hypertension Respiratory History: Reports: PE Genitourinary History: Reports: Urinary Incontinence, UTI, Recurrent OYSTER SORTER History: Reports: None Musculoskeletal History: Reports: Osteoarthritis Neurological History: Reports: None Psychiatric History: Reports: None Endocrine/Metabolic History: Reports: Diabetes, Type II, Hypothyroidism, Obesity /BMI 30+, Osteopenia, Osteoporosis, Vitamin D Deficiency Hematologic History: Reports: Anticoagulation Therapy Immunologic History: Reports: None Oncologic (Cancer) History: Reports: None Dermatologic History: Reports: None - Infectious Disease History Infectious Disease History: Reports: None - Past Surgical History Head Surgeries/Procedures: Reports: None HEENT Surgical History: Reports: Cataract Surgery GI Surgical History: Reports: Appendectomy, Cholecystectomy Social & Family History - Family History Family Medical History: Noncontributory - Tobacco Use Smoking Status *Q: Never Smoker - Caffeine Use Caffeine Use: Reports: Coffee - Recreational Drug Use Recreational Drug Use: No - Living Situation & Occupation Living situation: Reports: Occupation: Retired Review of Systems - Review of Systems Review Of Systems: See Below Constitutional: Reports: No Symptoms Eyes: Reports: No Symptoms Ears: Reports: No Symptoms Nose: Reports: No Symptoms Mouth/Throat: Reports: No Symptoms Respiratory: Reports: No Symptoms Cardiovascular: Reports: No Symptoms GI/Abdominal: Reports: No Symptoms Genitourinary: Reports: No Symptoms Musculoskeletal: Reports: Other (Left posterior thigh pain upon palpation.) ED EXAM, GENERAL - Physical Exam Exam: See Below Exam Limited By: No Limitations General Appearance: Alert, No Apparent Distress Ears: Normal External Exam Nose: Normal Inspection Head: Atraumatic, Normocephalic Neck: Normal Inspection Respiratory/Chest: No Respiratory Distress, Lungs Clear, Normal Breath Sounds Cardiovascular: Regular Rate, Rhythm, No Edema, No Murmur GI/Abdominal: Soft, Non-Tender, No Organomegaly, No Mass Back Exam: Normal Inspection Extremities: Other (Mild pain upon palpation to the left posterior thigh. Good sensation and pulses distally.) Course - Vital Signs Last Recorded V/S: Last Vital Signs Temp 97.6 F 02/04/19 13:47 Pulse 96 02/04/19 13:47 Resp 18 02/04/19 13:47 BP 150/126 H 02/04/19 13:47 Pulse Ox 97 02/04/19 13:47 - Orders/Labs/Meds Orders: Active Orders 24 hr Category Date Time Status Femur Min 2V Lt [CR] Stat Exams 02/04/19 13:59 Taken - Re-Assessments/Exams Free Text/Narrative Re-Assessment/Exam: 02/04/19 14:23 I did an x-ray and there was no fracture. 02/04/19 14:26 I feel she may have a contusion to that area. I will have her ice and take tylenol. Departure - Departure Time of Disposition: 14:30 Disposition: Home, Self-Care 01 Condition: Good Clinical Impression: Fall Qualifiers: Encounter type: initial encounter Qualified Code(s): W19.XXXA - Unspecified fall, initial encounter Contusion of thigh, left Qualifiers: Encounter type: initial encounter Qualified Code(s): S70.12XA - Contusion of left thigh, initial encounter - Discharge Information *PRESCRIPTION DRUG MONITORING PROGRAM REVIEWED*: No *COPY OF PRESCRIPTION DRUG MONITORING REPORT IN PATIENT JAVI: No Referrals: Ashley Back MD [Primary Care Provider] - 1 Week Forms: ED Department Discharge Additional Instructions: Ice your leg for 15 minutes 3 times per day for 2 days. Take tylenol for pain. Please return if you are worse. - My Orders Last 24 Hours: My Active Orders 02/04/19 13:59 Femur Min 2V Lt [CR] Stat - Assessment/Plan Last 24 Hours: My Active Orders 02/04/19 13:59 Femur Min 2V Lt [CR] Stat
--- NOTE | 2019-02-04 15:40 | CR ---
Left femur: AP and lateral views of the left femur were obtained. Comparison: No prior femur study. Slight spurring is noted within the patella. Joint space with the left hip is preserved. Diffuse vascular calcification is seen. Mild to moderate medial joint space narrowing is seen. Small osteophyte off the lateral tibia is noted. No fracture or other bony abnormality is seen. Impression: 1. Degenerative change, osteopenia and vascular calcification. 2. Nothing acute is appreciated on left femur exam. Diagnostic code #2
== END 2019-02-04 15:08 | disposition home or self-care (01) ==
LOC: JD.ED 13:39
DX: S70.12XA Contusion of left thigh, initial encounter (principal); H26.9 Unspecified cataract; E78.00 Pure hypercholesterolemia, unspecified; I10 Essential (primary) hypertension; E11.9 Type 2 diabetes mellitus without complications; E03.9 Hypothyroidism, unspecified; E66.9 Obesity, unspecified; Z68.37 Body mass index [BMI] 37.0-37.9, adult; Z88.1 Allergy status to other antibiotic agents; Z88.8 Allergy status to other drugs, medicaments and biological substances; Z79.890 Hormone replacement therapy; Z79.899 Other long term (current) drug therapy; Z79.84 Long term (current) use of oral hypoglycemic drugs; Z79.01 Long term (current) use of anticoagulants; Z86.711 Personal history of pulmonary embolism; W19.XXXA Unspecified fall, initial encounter; Y93.89 Activity, other specified; Y92.29 Other specified public building as the place of occurrence of the external cause
CPT/HCPCS: 73552-26-LT; 73552-LT; 99282; 99283-25

== ENCOUNTER 2019-12-23 07:15 | Day surgery (SDC) | payer MEDICARE, OTHER ==
[~2019-12-23 07:15] MED LIST: Lactated Ringers 1,000 ML IV SCH; Lidocaine 1% 4 ML ONE; Lidocaine 1%/Sod Bicarbonate in NS 8.4% 1 ML Syringe IDERM PRN; Propofol 200 MG/20 ML SDV ONE; Sodium Chloride 0.9% 10 ML Syringe FLUSH PRN; fentaNYL 100 MCG/2 ML SDV ONE
--- NOTE | 2019-12-23 07:32 | PCM.PREANE ---
Preanesthetic Assessment - Procedure Proposed Procedure: colonoscopy - Anesthesia/Transfusion/Family Hx Anesthesia History: Prior Anesthesia Without Reaction Family History of Anesthesia Reaction: No Transfusion History: No Prior Transfusion(s) - Review of Systems General: No Symptoms Pulmonary: Shortness of Breath (with activity) Cardiovascular: Dyspnea on Exertion, Other (PE atrial fib 2019) Gastrointestinal: No Symptoms - Physical Assessment NPO Status Date: 12/22/19 NPO Status Time: 22:00 Vital Signs: 141/66 72 94% 20 96.9 Height: 4 ft 11 in Weight: 81 kg ASA Class: 3 Mental Status: Alert & Oriented x3 Airway Class: Mallampati = 1 Dentition: Reports: Normal Dentition Thyro-Mental Finger Breadths: 2 Mouth Opening Finger Breadths: 3 ROM/Head Extension: Full Lungs: Clear to Auscultation, Normal Respiratory Effort Cardiovascular: Regular Rate, Regular Rhythm - Allergies Allergies/Adverse Reactions: Allergies Allergy/AdvReac Type Severity Reaction Status Date / Time nitrofurantoin Allergy Fatigue Verified 12/22/19 14:56 [From Macrobid] nitrofurantoin Allergy Fatigue Verified 12/22/19 14:56 macrocrystalline [From Macrobid] quinapril HCl [From Accupril] AdvReac Cough Verified 12/22/19 14:56 - Blood Blood Available: No - Anesthesia Plan Beta Tino: Metoprolol Med Last Dose Date: 12/23/19 Med Last Dose Time: 05:30 - Acknowledgements Anesthesia Type Planned: MAC Pt an Appropriate Candidate for the Planned Anesthesia: Yes Alternatives and Risks of Anesthesia Discussed w Pt/Guardian: Yes Pt/Guardian Understands and Agrees with Anesthesia Plan: Yes PreAnesthesia Questionnaire HEENT History: Reports: Cataract, Impaired Vision Cardiovascular History: Reports: Afib, Heart Murmur, High Cholesterol, Hypertension, Other (See Below) Other Cardiovascular History: AORTIC VALVE SCLEROSIS Respiratory History: Reports: PE Gastrointestinal History: Reports: Colon Polyp, Diverticulosis, Hemorrhoids Genitourinary History: Reports: Urinary Incontinence, UTI, Recurrent S[employer]PER History: Reports: None Musculoskeletal History: Reports: Osteoarthritis Neurological History: Reports: None Psychiatric History: Reports: None Endocrine/Metabolic History: Reports: Diabetes, Type II, Hypothyroidism, Obesity/BMI 30+, Osteopenia, Osteoporosis, Vitamin D Deficiency Hematologic History: Reports: Anticoagulation Therapy Immunologic History: Reports: None Oncologic (Cancer) History: Reports: None Dermatologic History: Reports: None - Infectious Disease History Infectious Disease History: Reports: None - Past Surgical History Head Surgeries/Procedures: Reports: None HEENT Surgical History: Reports: Cataract Surgery Cardiovascular Surgical History: Reports: None Respiratory Surgical History: Reports: None GI Surgical History: Reports: Appendectomy, Cholecystectomy Female Surgical History: Reports: None Male Surgical History: Reports: None Endocrine Surgical History: Reports: None Neurological Surgical History: Reports: None Musculoskeletal Surgical History: Reports: None Oncologic Surgical History: Reports: None Dermatological Surgical History: Reports: None - SUBSTANCE USE Smoking Status *Q: Never Smoker Tobacco Use Within Last Twelve Months: No Second Hand Smoke Exposure: No Days Per Week of Alcohol Use: 0 Recreational Drug Use History: No - HOME MEDS Home Medications: Home Meds Calcium Carb/Vitamin D3/Vit K1 [Calcium + D Soft Chewable Tab] 600 mg PO BID 12/13/14 [History] Levothyroxine [Synthroid] 88 mcg PO DAILY 12/13/14 [History] Potassium Chloride [Klor-Con 10] 10 meq PO DAILY 12/13/14 [History] atorvaSTATin [Lipitor] 20 mg PO BEDTIME 12/13/14 [History] metFORMIN [Glucophage] 1,000 mg PO BID 12/13/14 [History] Furosemide [Lasix] 40 mg PO DAILY 06/07/17 [History] Losartan [Cozaar] 50 mg PO DAILY 06/07/17 [History] Multivitamin [Multivitamins] 1 each PO DAILY 06/07/17 [History] Metoprolol Tartrate [Lopressor] 25 mg PO Q12H #60 tablet 06/24/18 [Rx] Warfarin [Coumadin] 2.5 mg PO [id number] 12/22/19 [History] Warfarin [Coumadin] 3.75 mg PO TH 12/22/19 [History] - CURRENT (IN HOUSE) MEDS Current Meds: Current Medications Lactated Ringer's (Ringers, Lactated) 1,000 mls @ 125 mls/hr IV ASDIRECTED ROXIE Stop: 12/23/19 23:00 Lidocaine/Sodium Bicarbonate (Buffered Lidocaine 1% In Ns 8.4%) 0.25 ml IDERM ONETIME PRN PRN Reason: Prior to IV Start Stop: 12/23/19 18:00 Sodium Chloride (Saline Flush) 10 ml FLUSH ASDIRECTED PRN PRN Reason: Keep Vein Open Stop: 12/23/19 18:00 Discontinued Medications Fentanyl (Sublimaze) Confirm Administered Dose 100 mcg .ROUTE .STK-MED ONE Stop: 12/23/19 07:13 Lidocaine HCl (Xylocaine-Mpf 1%) Confirm Administered Dose 4 mls @ as directed .ROUTE .STK-MED ONE Stop: 12/23/19 07:12 Propofol (Diprivan 20 Ml) Confirm Administered Dose 400 mg .ROUTE .STK-MED ONE Stop: 12/23/19 07:13
[2019-12-23] MEDS ORDERED: ePHEDrine Sulfate/0.9% NaCl/Pf 25 MG/5 ML SYRINGE IV ONE (09:02)
--- NOTE | 2019-12-23 09:35 | PCM48HPAN ---
Post Anesthesia Note - EVALUATION WITHIN 48HRS OF ANESTHETIC Vital Signs in Normal Range: Yes Patient Participated in Evaluation: Yes Respiratory Function Stable: Yes Airway Patent: Yes Cardiovascular Function Stable: Yes Hydration Status Stable: Yes Pain Control Satisfactory: Yes Nausea and Vomiting Control Satisfactory: Yes Mental Status Recovered: Yes Vital Signs: Last Vital Signs Temp 96.9 F 12/23/19 07:15 Pulse 72 12/23/19 07:15 Resp 20 12/23/19 07:15 BP 141/66 H 12/23/19 07:15 Pulse Ox 94 L 12/23/19 07:15 0931 110/83 75 20 97.0 95%
--- NOTE | 2019-12-23 09:37 | PCM.OPNOTE ---
- General Post-Op/Procedure Note Date of Surgery/Procedure: 12/23/19 Operative Procedure(s): Colonoscopy Findings: 1. Diverticulosis 2. Transverse colon polyps x2 3. Rectal polyp Pre Op Diagnosis: history of colon polyps Post-Op Diagnosis: same Anesthesia Technique: MAC Primary Surgeon: Ina Levin Anesthesia Provider: Josy Lam Pathology: 1. Transverse colon polyps x2 2. Rectal polyp Fluid Replacement, Intraop: 500 EBL in mLs: 0 Drain/Tube Comments:: none Complications: none apparent Condition: Good
--- NOTE | 2019-12-23 10:08 | PCM.PRNOTE ---
- Free Text/Narrative Note: Operative Report Date of Surgery/Procedure: December 22 Operative Procedure: Colonoscopy to cecum with polypectomy Pre Op Diagnosis: history of colon polyps Post-Op Diagnosis: same Surgeon: Ina Levin MD Anesthesia Technique: MAC Anesthesia Provider: Josy Lam CRNA IV Fluid Replacement, Intraop: 500cc Output, Urine Amount: 0cc EBL : 0cc Findings: 1. Diverticulosis 2. Transverse colon polyps x2 3. Rectal polyp Specimens: 1. Transverse colon polyps x2 2. Rectal polyp Indication: The patient is a 79 year-old female who presented to the outpatient clinic requesting colorectal cancer screening. The patient has a history of colon polyps. We discussed the procedure of a surveillance colonoscopy including the polypectomy and biopsy. Risks of bleeding and perforation were discussed, the patient understood and wished to proceed. Written and consent was obtained Description of the procedure: The patient was brought to the endoscopy suite and placed in the left lateral decubitus position. Appropriate monitors were applied. The patient was given MAC anesthesia. An anorectal examination was performed, revealing mild external skin tags. The scope was placed into the rectum and advanced to cecum with minimal difficulty requiring no additional maneuvers. The patients cecum was entered, and the ileocecal valve and appendiceal orifice were identified and normal. At this point, the scope was withdrawn, paying careful attention to the mucosa. The patient had good bowel prep, allowing for visualization of 90-95% of the mucosa with washing and suctioning. Diverticulosis was noted in the ascending colon, descending colon, and sigmoid colon. There were 2 transverse colon polyps measuring 3 mm and flat, removed with a jumbo biopsy forceps. In the rectum, the scope was retroflexed and no abnormalities were noted, except for some hemorrhoidal tissue. A 2mm flat polyp was seen in the rectum removed with a jumbo cold biopsy forceps. The scope was placed back in the lumen and the excess air was aspirated. The patient tolerated the procedure well. Complications: none apparent Condition: Good, transported to PACU in stable condition Ina Lvein MD General Surgery
[2019-12-23 11:02] VITALS: BP 112/66; PULSE 66
== END 2019-12-23 10:33 | disposition home or self-care (01) ==
LOC: JD.SDS 07:15
PROVIDERS: ATTEND Surgery
DX: Z12.11 Encounter for screening for malignant neoplasm of colon (principal); D12.3 Benign neoplasm of transverse colon; D12.8 Benign neoplasm of rectum; K57.30 Diverticulosis of large intestine without perforation or abscess without bleeding; K64.9 Unspecified hemorrhoids; K64.4 Residual hemorrhoidal skin tags; E11.22 Type 2 diabetes mellitus with diabetic chronic kidney disease; E66.9 Obesity, unspecified; N18.3 Chronic kidney disease, stage 3 (moderate); I12.9 Hypertensive chronic kidney disease with stage 1 through stage 4 chronic kidney disease, or unspecified chronic kidney disease; E03.9 Hypothyroidism, unspecified; Z90.49 Acquired absence of other specified parts of digestive tract; Z98.890 Other specified postprocedural states; Z86.010 Personal history of colon polyps; Z88.8 Allergy status to other drugs, medicaments and biological substances; Z68.38 Body mass index [BMI] 38.0-38.9, adult
CPT/HCPCS: 36415; 85610; J0171; J2001; J2704; J3010; J7120

== ENCOUNTER 2021-09-02 12:19 | Emergency (ER) | payer MEDICARE, OTHER ==
[2021-09-02 13:09] VITALS: BP 125/77; PULSE 73
[2021-09-02] MEDS ORDERED: Lidocaine 1% with EPINEPHrine 1:100,000 10 ML MDV INJECT ONE (14:00)
[2021-09-02] MEDS ORDERED: Diphtheria,Pertussis(Acell),Tetanus Vaccine 0.5 ML Syringe IM ONE (16:00)
== END 2021-09-02 22:30 | disposition home or self-care (01) ==
LOC: JD.ED 12:19
DX: S01.01XA Laceration without foreign body of scalp, initial encounter (principal); E78.00 Pure hypercholesterolemia, unspecified; I10 Essential (primary) hypertension; M19.90 Unspecified osteoarthritis, unspecified site; E03.9 Hypothyroidism, unspecified; E11.9 Type 2 diabetes mellitus without complications; E66.9 Obesity, unspecified; Z68.32 Body mass index [BMI] 32.0-32.9, adult; Z90.49 Acquired absence of other specified parts of digestive tract; Z79.899 Other long term (current) drug therapy; Z79.84 Long term (current) use of oral hypoglycemic drugs; Z79.01 Long term (current) use of anticoagulants; Z88.1 Allergy status to other antibiotic agents; Z88.8 Allergy status to other drugs, medicaments and biological substances; Z23 Encounter for immunization; W01.198A Fall on same level from slipping, tripping and stumbling with subsequent striking against other object, initial encounter
CPT/HCPCS: 12002; 36415; 70450; 70450-26; 85025; 85610; 90471; 90715; 99283; 99284-25

== ENCOUNTER 2021-09-04 09:48 | Day surgery (SDC) | payer MEDICARE, OTHER ==
[~2021-09-04 09:48] MED LIST changes: -Lidocaine 1% 4 ML ONE; -Propofol 200 MG/20 ML SDV ONE; +Sodium Chloride 0.9% 10 ML Syringe FLUSH SCH; -fentaNYL 100 MCG/2 ML SDV ONE
[2021-09-04] MEDS ORDERED: Lidocaine 1% 4 ML ONE (11:14)
[2021-09-04] MEDS ORDERED: Propofol 200 MG/20 ML SDV ONE ×2 (11:14→11:31)
[2021-09-04] MEDS ORDERED: fentaNYL 100 MCG/2 ML SDV ONE (12:41)
[2021-09-04 17:07] VITALS: BP 128/65; PULSE 68
== END 2021-09-04 13:55 | disposition home or self-care (01) ==
LOC: JD.SDS 09:48
PROVIDERS: ATTEND Surgery
DX: K52.832 Lymphocytic colitis (principal); D12.2 Benign neoplasm of ascending colon; I48.91 Unspecified atrial fibrillation; K44.9 Diaphragmatic hernia without obstruction or gangrene; K64.4 Residual hemorrhoidal skin tags; K57.30 Diverticulosis of large intestine without perforation or abscess without bleeding; E11.22 Type 2 diabetes mellitus with diabetic chronic kidney disease; N18.30 Chronic kidney disease, stage 3 unspecified; E66.9 Obesity, unspecified; I13.0 Hypertensive heart and chronic kidney disease with heart failure and stage 1 through stage 4 chronic kidney disease, or unspecified chronic kidney disease; E78.5 Hyperlipidemia, unspecified; E55.9 Vitamin D deficiency, unspecified; E03.9 Hypothyroidism, unspecified; E11.51 Type 2 diabetes mellitus with diabetic peripheral angiopathy without gangrene; Z90.49 Acquired absence of other specified parts of digestive tract; Z79.01 Long term (current) use of anticoagulants; Z98.890 Other specified postprocedural states; Z88.8 Allergy status to other drugs, medicaments and biological substances; Z68.33 Body mass index [BMI] 33.0-33.9, adult
CPT/HCPCS: 36415; 43235; 45380; 45385; 85610; J2704; J3010; J7120; 00813; 99100

== ENCOUNTER 2022-02-14 17:47 | Emergency (ER) | payer MEDICARE, OTHER ==
[2022-02-14] MEDS ORDERED: Sodium Chloride 0.9% 10 ML Syringe FLUSH PRN (18:49)
[2022-02-14 18:56] VITALS: BP 117/67
[2022-02-14 19:59] LABS: ESTIMATED GFR 35 mL/min (>60)
[2022-02-14] MEDS ORDERED: Magnesium Sulfate/Water 4 GM in Premix Bag 1 BAG IV ONE ×2 (21:04→21:40)
[2022-02-14] MEDS ORDERED: Potassium Chloride 20 MEQ Tab.ER PO ONE ×2 (21:05→21:40)
[2022-02-14] MEDS ORDERED: Potassium Chloride 10 MEQ in Premix Bag 1 BAG IV SCH (21:15)
[2022-02-14] MEDS ORDERED: Potassium Chloride 10 MEQ in Premix Bag 1 BAG IV ONE (21:40)
[2022-02-14] MEDS ORDERED: Cefdinir 300 MG Cap PO ONE (21:40)
[2022-02-15] MEDS ORDERED: Cefdinir 300 MG Cap PO ONE (02:39)
[2022-02-15 02:51] VITALS: PULSE 72
== END 2022-02-15 02:50 | disposition home or self-care (01) ==
LOC: JD.ED 17:47
DX: E87.6 Hypokalemia (principal); E83.42 Hypomagnesemia; N39.0 Urinary tract infection, site not specified; I48.91 Unspecified atrial fibrillation; I10 Essential (primary) hypertension; E78.00 Pure hypercholesterolemia, unspecified; M19.90 Unspecified osteoarthritis, unspecified site; E11.9 Type 2 diabetes mellitus without complications; E03.9 Hypothyroidism, unspecified; E66.9 Obesity, unspecified; Z88.1 Allergy status to other antibiotic agents; Z79.84 Long term (current) use of oral hypoglycemic drugs; Z79.01 Long term (current) use of anticoagulants; Z79.899 Other long term (current) drug therapy
CPT/HCPCS: 36415; 71045; 80053; 81001; 83735; 84132; 84484; 85025; 87086; 87088; 87186; 93005; 96365; 96366; 96368; 99284; A9270; J3475; J3480; 93010

== ENCOUNTER 2022-12-10 14:16 | Inpatient (IN) | payer MEDICARE, OTHER, MEDICAID ==
[2022-12-10] MEDS ORDERED: Sodium Chloride 0.9% 1,000 ML IV ONE (14:24)
[2022-12-10] MEDS ORDERED: Sodium Chloride 0.9% 10 ML Syringe FLUSH PRN ×2 (14:24→18:19)
[2022-12-10 15:40] LABS: APPEARANCE,URINE CLOUDY (Clear); BILIRUBIN,URINE NEGATIVE (Negative); COLOR,URINE YELLOW (Yellow); GLUCOSE,URINE NEGATIVE (Negative); KETONES,URINE NEGATIVE (Negative); LEUKOCYTE ESTERASE,URINE 2+ (Negative); NITRITE,URINE NEGATIVE (Negative); OCCULT BLOOD,URINE 2+ (Negative); PROTEIN,URINE 2+ (Negative); UROBILINOGEN,URINE 0.2 (0.2-1.0)
[2022-12-10] MEDS ORDERED: Piperacillin/Tazobactam 4.5 GM in Sodium Chloride 0.9% 100 ML IV ONE (15:45)
[2022-12-10 15:59] LABS: HEMATOCRIT 31.2 % (34.1-44.9); MEAN CORPUSCULAR HEMOGLOBIN 30.4 pg (25.6-32.2); MEAN CORPUSCULAR HGB CONC 32.1 g/dl (32.2-35.5); MEAN CORPUSCULAR VOLUME 94.8 fl (79.4-94.8); MEAN PLATELET VOLUME 9.9 fl (9.4-12.3); PLATELET COUNT,PLT 206 K/mm3 (182-369); RED BLOOD CELL COUNT 3.29 M/mm3 (3.98-5.22); WHITE BLOOD CELL COUNT,WBC 7.58 K/mm3 (3.98-10.04)
[2022-12-10] MEDS ORDERED: Sodium Chloride 0.9% 500 ML IV STA (16:01)
[2022-12-10 16:28] LABS: A/G RATIO 0.7 (1-2); ALBUMIN 1.9 g/dl (3.4-5.0); ANION GAP 12.7 (5-15); BILIRUBIN TOTAL 0.5 mg/dL (0.2-1.0); BUN/CREATININE RATIO 13.1 (14-18); CALCIUM 7.3 mg/dL (8.5-10.1); CREATININE 4.5 mg/dL (0.55-1.02); EST CRCL DRUG DOSING (CG) 6.8 mL/min; POTASSIUM,K 2.7 mEq/L (3.5-5.1); PROTEIN TOTAL,TP 4.6 g/dl (6.4-8.2)
[2022-12-10 16:34] LABS: BACTERIA,URINE MANY /hpf (FEW); MUCUS,URINE FEW /hpf (FEW); SQUAMOUS EPITHELIAL CELLS,UR 0-5 /hpf (0-5); WBC,URINE 30-40 /hpf (0-5)
[2022-12-10 16:35] LABS: INR 1.29; PROTHROMBIN TIME 13.5 SECONDS (9.7-12.0)
[2022-12-10 16:44] LABS: LACTIC ACID 1.8 mmol/L (0.4-2.0)
[2022-12-10 16:53] LABS: ANISOCYTOSIS 1+ SLIGHT; BAND PERCENT MAN 0 % (0-10); BASOPHILS PERCENT MAN 0 (0.1-1.2); EOSINOPHILS PERCENT MAN 0 % (0.7-5.8); LYMPHOCYTES % ATYPICAL MANUAL 1 %; LYMPHOCYTES PERCENT MAN 20 % (20-40); MONOCYTES PERCENT MAN 0 % (2-10); OVALOCYTES 1+ SLIGHT; POIKILOCYTOSIS 1+ SLIGHT
[2022-12-10 16:54] LABS: BURR CELLS FEW; PLATELET COUNT ESTIMATE ADEQUATE
[2022-12-10] MEDS: Potassium Chloride 10 MEQ in Premix Bag 1 BAG IV SCH ×5 (17:07→23:10)
[2022-12-10] MEDS: Phenylephrine 10 MG in Sodium Chloride 0.9% 99 ML IV SCH ×3 (17:20→21:48)
[2022-12-10] MEDS ORDERED: Ondansetron 4 MG/2 ML SDV IV PRN (18:19)
[2022-12-10] MEDS ORDERED: Acetaminophen 325 MG Tab PO PRN (18:19)
[2022-12-10] MEDS ORDERED: Ondansetron 4 MG Tab.DIS PO PRN (18:19)
[2022-12-10] MEDS ORDERED: Piperacillin/Tazobactam 4.5 GM in Sodium Chloride 0.9% 100 ML IV SCH (18:30)
[2022-12-10] MEDS ORDERED: Phenylephrine 10 MG in Sodium Chloride 0.9% 99 ML IV SCH (18:30)
[2022-12-10] MEDS ORDERED: Lactated Ringers 1,000 ML IV SCH (18:30)
[2022-12-10] MEDS ORDERED: Heparin Sodium 5,000 Units/ML Vial ONE (19:38)
[2022-12-10] MEDS: Insulin Lispro 100 Unit/ML 3 ML KwikPen SUBCUT SCH (20:49)
[2022-12-10] MEDS: Piperacillin/Tazobactam 4.5 GM in Sodium Chloride 0.9% 100 ML IV SCH (22:36)
[2022-12-11] MEDS: Potassium Chloride 10 MEQ in Premix Bag 1 BAG IV SCH ×5 (00:09→13:09)
[2022-12-11] MEDS ORDERED: 50% Dextrose in Water 50 ML Syringe IVPUSH PRN (00:14)
[2022-12-11] MEDS ORDERED: 50% Dextrose in Water 50 ML Syringe ONE (00:17)
[2022-12-11] MEDS: Dextrose 5%-0.9% NaCl 1,000 ML IV SCH ×4 (00:24→23:33)
[2022-12-11] MEDS: Insulin Lispro 100 Unit/ML 3 ML KwikPen SUBCUT SCH ×4 (00:24→17:55)
[2022-12-11 06:04] LABS: BASOPHILS ABSOLUTE AUTO 0.02 K/mm3 (0.01-0.08); BASOPHILS PERCENT AUTO 0.2 % (0.1-1.2); EOSINOPHILS ABSOLUTE AUTO 0.01 K/mm3 (0.04-0.36); EOSINOPHILS PERCENT AUTO 0.1 (0.7-5.8); HEMATOCRIT 31.3 % (34.1-44.9); IMMATURE GRAN ABSOLUTE AUTO 0.04 K/mm3 (0.00-0.10); IMMATURE GRAN PERCENT AUTO 0.4 % (<=1.0); LYMPHOCYTES ABSOLUTE AUTO 1.92 K/mm3 (1.18-3.74); LYMPHOCYTES PERCENT AUTO 20.4 % (19.3-51.7); MEAN CORPUSCULAR HEMOGLOBIN 30.5 pg (25.6-32.2); MEAN CORPUSCULAR HGB CONC 31.9 g/dl (32.2-35.5); MEAN CORPUSCULAR VOLUME 95.4 fl (79.4-94.8); MEAN PLATELET VOLUME 9.8 fl (9.4-12.3); MONOCYTES ABSOLUTE AUTO 0.41 K/mm3 (0.24-0.36); MONOCYTES PERCENT AUTO 4.4 % (4.7-12.5); NEUTROPHILS ABSOLUTE AUTO 6.99 K/mm3 (1.56-6.13); NEUTROPHILS PERCENT AUTO 74.5 % (34.0-71.1); PLATELET COUNT,PLT 256 K/mm3 (182-369); RED BLOOD CELL COUNT 3.28 M/mm3 (3.98-5.22); WHITE BLOOD CELL COUNT,WBC 9.39 K/mm3 (3.98-10.04)
[2022-12-11 06:16] LABS: A/G RATIO 0.6 (1-2); ALBUMIN 1.8 g/dl (3.4-5.0); BILIRUBIN TOTAL 0.6 mg/dL (0.2-1.0); BUN/CREATININE RATIO 14.6 (14-18); CALCIUM 6.9 mg/dL (8.5-10.1); CREATININE 3.5 mg/dL (0.55-1.02); EST CRCL DRUG DOSING (CG) 8.75 mL/min; MAGNESIUM 1.6 mg/dL (1.8-2.4); PROTEIN TOTAL,TP 4.6 g/dl (6.4-8.2)
[2022-12-11] MEDS: Phenylephrine 10 MG in Sodium Chloride 0.9% 99 ML IV SCH (07:45)
[2022-12-11] MEDS: Piperacillin/Tazobactam 4.5 GM in Sodium Chloride 0.9% 100 ML IV SCH ×2 (10:01→21:15)
[2022-12-11] MEDS: Phenylephrine 25 MG in Sodium Chloride 0.9% 247.5 ML IV SCH ×2 (11:05→22:15)
[2022-12-12] MEDS: Insulin Lispro 100 Unit/ML 3 ML KwikPen SUBCUT SCH ×4 (01:13→17:51)
[2022-12-12 05:43] LABS: ANION GAP 11.7 (5-15); BUN/CREATININE RATIO 14.3 (14-18); CALCIUM 6.6 mg/dL (8.5-10.1); CREATININE 2.3 mg/dL (0.55-1.02); EST CRCL DRUG DOSING (CG) 13.31 mL/min; POTASSIUM,K 2.7 mEq/L (3.5-5.1)
[2022-12-12 06:08] LABS: BASOPHILS ABSOLUTE AUTO 0.02 K/mm3 (0.01-0.08); BASOPHILS PERCENT AUTO 0.2 % (0.1-1.2); EOSINOPHILS PERCENT AUTO 0 (0.7-5.8); HEMATOCRIT 30.1 % (34.1-44.9); HEMOGLOBIN 9.5 gm/dl (11.2-15.7); IMMATURE GRAN ABSOLUTE AUTO 0.06 K/mm3 (0.00-0.10); IMMATURE GRAN PERCENT AUTO 0.7 % (<=1.0); LYMPHOCYTES ABSOLUTE AUTO 2.07 K/mm3 (1.18-3.74); LYMPHOCYTES PERCENT AUTO 22.9 % (19.3-51.7); MEAN CORPUSCULAR HEMOGLOBIN 30.5 pg (25.6-32.2); MEAN CORPUSCULAR HGB CONC 31.6 g/dl (32.2-35.5); MEAN CORPUSCULAR VOLUME 96.8 fl (79.4-94.8); MEAN PLATELET VOLUME 9.9 fl (9.4-12.3); MONOCYTES ABSOLUTE AUTO 0.47 K/mm3 (0.24-0.36); MONOCYTES PERCENT AUTO 5.2 % (4.7-12.5); NEUTROPHILS ABSOLUTE AUTO 6.41 K/mm3 (1.56-6.13); PLATELET COUNT,PLT 203 K/mm3 (182-369); RED BLOOD CELL COUNT 3.11 M/mm3 (3.98-5.22); WHITE BLOOD CELL COUNT,WBC 9.03 K/mm3 (3.98-10.04)
[2022-12-12] MEDS ORDERED: Potassium Chloride 20 MEQ Tab.ER PO ONE (06:28)
[2022-12-12] MEDS: Potassium Chloride 10 MEQ in Premix Bag 1 BAG IV SCH ×4 (07:00→10:28)
[2022-12-12 08:09] LABS: SLIDE REVIEW ABNORMAL SMEAR
[2022-12-12] MEDS ORDERED: VANCOmycin 750 MG/150 ML 750 MG in Premix Bag 1 BAG IV SCH (09:00)
[2022-12-12] MEDS ORDERED: VANCOmycin 500 MG/100 ML 500 MG in Premix Bag 1 BAG IV SCH (09:00)
[2022-12-12] MEDS: Piperacillin/Tazobactam 4.5 GM in Sodium Chloride 0.9% 100 ML IV SCH ×2 (09:32→22:25)
[2022-12-12] MEDS: Midodrine 5 MG Tab PO SCH ×2 (12:02→17:27)
[2022-12-12] MEDS: Phenylephrine 25 MG in Sodium Chloride 0.9% 247.5 ML IV SCH (17:22)
[2022-12-12] MEDS: Dextrose 5%-0.9% NaCl 1,000 ML IV SCH (18:14)
[2022-12-13] MEDS: Insulin Lispro 100 Unit/ML 3 ML KwikPen SUBCUT SCH ×4 (00:45→18:03)
[2022-12-13] MEDS: Dextrose 5%-0.9% NaCl 1,000 ML IV SCH ×2 (02:24→10:17)
[2022-12-13 06:01] LABS: BASOPHILS ABSOLUTE AUTO 0.03 K/mm3 (0.01-0.08); BASOPHILS PERCENT AUTO 0.4 % (0.1-1.2); EOSINOPHILS ABSOLUTE AUTO 0.04 K/mm3 (0.04-0.36); EOSINOPHILS PERCENT AUTO 0.6 (0.7-5.8); HEMATOCRIT 27.8 % (34.1-44.9); HEMOGLOBIN 8.6 gm/dl (11.2-15.7); IMMATURE GRAN ABSOLUTE AUTO 0.11 K/mm3 (0.00-0.10); IMMATURE GRAN PERCENT AUTO 1.6 % (<=1.0); LYMPHOCYTES ABSOLUTE AUTO 1.85 K/mm3 (1.18-3.74); LYMPHOCYTES PERCENT AUTO 27.4 % (19.3-51.7); MEAN CORPUSCULAR HEMOGLOBIN 30.3 pg (25.6-32.2); MEAN CORPUSCULAR HGB CONC 30.9 g/dl (32.2-35.5); MEAN CORPUSCULAR VOLUME 97.9 fl (79.4-94.8); MEAN PLATELET VOLUME 9.4 fl (9.4-12.3); MONOCYTES ABSOLUTE AUTO 0.31 K/mm3 (0.24-0.36); MONOCYTES PERCENT AUTO 4.6 % (4.7-12.5); NEUTROPHILS PERCENT AUTO 65.4 % (34.0-71.1); PLATELET COUNT,PLT 155 K/mm3 (182-369); RED BLOOD CELL COUNT 2.84 M/mm3 (3.98-5.22); WHITE BLOOD CELL COUNT,WBC 6.74 K/mm3 (3.98-10.04)
[2022-12-13 06:22] LABS: ANION GAP 10.3 (5-15); CALCIUM 6.5 mg/dL (8.5-10.1); CREATININE 1.6 mg/dL (0.55-1.02); EST CRCL DRUG DOSING (CG) 19.14 mL/min; POTASSIUM,K 3.3 mEq/L (3.5-5.1)
[2022-12-13] MEDS: Midodrine 5 MG Tab PO SCH ×3 (07:37→17:00)
[2022-12-13] MEDS: Potassium Chloride 10 MEQ in Premix Bag 1 BAG IV SCH ×4 (07:37→11:05)
[2022-12-13] MEDS: Sertraline 25 MG Tab PO SCH (08:53)
[2022-12-13] MEDS: predniSONE 20 MG Tab PO SCH (08:53)
[2022-12-13] MEDS: Rivaroxaban 15 MG Tab PO SCH (08:54)
[2022-12-13] MEDS ORDERED: Non-Formulary Medication 1 Each (Budesonide [Budesonide Ec] 3 MG Capdr...Er) PO SCH (09:00)
[2022-12-13] MEDS ORDERED: Levothyroxine 88 MCG Tab PO SCH (09:00)
[2022-12-13] MEDS ORDERED: Furosemide 20 MG Tab PO SCH (09:00)
[2022-12-13] MEDS: Furosemide 20 MG Tab PO SCH (09:01)
[2022-12-13] MEDS: Levothyroxine 88 MCG Tab PO SCH (09:01)
[2022-12-13] MEDS: Piperacillin/Tazobactam 4.5 GM in Sodium Chloride 0.9% 100 ML IV SCH ×2 (09:03→21:34)
[2022-12-13] MEDS ORDERED: Furosemide 40 MG/4 ML VIAL IVPUSH ONE (11:24)
[2022-12-13] MEDS: Cholestyramine/Sucrose Powder 4 GM Packet PO SCH (17:00)
[2022-12-13] MEDS: atorvaSTATin 20 MG Tab PO SCH (20:44)
[2022-12-13] MEDS: traZODone 50 MG Tab PO SCH (20:44)
[2022-12-14] MEDS: Insulin Lispro 100 Unit/ML 3 ML KwikPen SUBCUT SCH ×4 (00:32→18:16)
[2022-12-14] MEDS: Dextrose 5%-0.9% NaCl 1,000 ML IV SCH (02:15)
[2022-12-14] MEDS: Levothyroxine 88 MCG Tab PO SCH (06:08)
[2022-12-14] MEDS: Cholestyramine/Sucrose Powder 4 GM Packet PO SCH ×2 (06:08→16:53)
[2022-12-14] MEDS: Midodrine 5 MG Tab PO SCH ×3 (06:08→16:53)
[2022-12-14] MEDS: Furosemide 20 MG Tab PO SCH (06:08)
[2022-12-14] MEDS ORDERED: Levofloxacin/Dextrose 5%-Water 500 MG in Premix Bag 1 BAG IV ONE (08:00)
[2022-12-14] MEDS: predniSONE 20 MG Tab PO SCH (08:19)
[2022-12-14] MEDS: Rivaroxaban 15 MG Tab PO SCH (08:19)
[2022-12-14] MEDS: Sertraline 25 MG Tab PO SCH (08:19)
[2022-12-14 08:22] LABS: ANION GAP 13.2 (5-15); BUN/CREATININE RATIO 12.9 (14-18); CALCIUM 6.6 mg/dL (8.5-10.1); CREATININE 1.4 mg/dL (0.55-1.02); EST CRCL DRUG DOSING (CG) 21.87 mL/min; POTASSIUM,K 3.2 mEq/L (3.5-5.1)
[2022-12-14] MEDS ORDERED: Furosemide 40 MG/4 ML VIAL IVPUSH ONE (09:09)
[2022-12-14] MEDS: Potassium Chloride 10 MEQ in Premix Bag 1 BAG IV SCH ×4 (09:22→13:04)
[2022-12-14] MEDS: traZODone 50 MG Tab PO SCH (20:32)
[2022-12-14] MEDS: atorvaSTATin 20 MG Tab PO SCH (20:32)
[2022-12-15] MEDS: Insulin Lispro 100 Unit/ML 3 ML KwikPen SUBCUT SCH ×5 (00:04→21:42)
[2022-12-15] MEDS: Cholestyramine/Sucrose Powder 4 GM Packet PO SCH ×2 (06:37→17:10)
[2022-12-15] MEDS: Furosemide 20 MG Tab PO SCH (06:37)
[2022-12-15] MEDS: Levothyroxine 88 MCG Tab PO SCH (06:37)
[2022-12-15] MEDS: Midodrine 5 MG Tab PO SCH ×3 (06:37→17:10)
[2022-12-15] MEDS: Rivaroxaban 15 MG Tab PO SCH (09:00)
[2022-12-15] MEDS: predniSONE 20 MG Tab PO SCH (09:00)
[2022-12-15] MEDS: Sertraline 25 MG Tab PO SCH (09:00)
[2022-12-15] MEDS: atorvaSTATin 20 MG Tab PO SCH (20:37)
[2022-12-15] MEDS: traZODone 50 MG Tab PO SCH (20:37)
[2022-12-16 05:18] LABS: BASOPHILS ABSOLUTE AUTO 0.02 K/mm3 (0.01-0.08); BASOPHILS PERCENT AUTO 0.3 % (0.1-1.2); EOSINOPHILS ABSOLUTE AUTO 0.02 K/mm3 (0.04-0.36); EOSINOPHILS PERCENT AUTO 0.3 (0.7-5.8); HEMATOCRIT 27.4 % (34.1-44.9); HEMOGLOBIN 8.5 gm/dl (11.2-15.7); IMMATURE GRAN ABSOLUTE AUTO 0.13 K/mm3 (0.00-0.10); IMMATURE GRAN PERCENT AUTO 1.7 % (<=1.0); LYMPHOCYTES ABSOLUTE AUTO 2.46 K/mm3 (1.18-3.74); LYMPHOCYTES PERCENT AUTO 31.8 % (19.3-51.7); MEAN CORPUSCULAR HEMOGLOBIN 30.2 pg (25.6-32.2); MEAN CORPUSCULAR VOLUME 97.5 fl (79.4-94.8); MEAN PLATELET VOLUME 9.7 fl (9.4-12.3); MONOCYTES ABSOLUTE AUTO 0.59 K/mm3 (0.24-0.36); MONOCYTES PERCENT AUTO 7.6 % (4.7-12.5); NEUTROPHILS ABSOLUTE AUTO 4.51 K/mm3 (1.56-6.13); NEUTROPHILS PERCENT AUTO 58.3 % (34.0-71.1); PLATELET COUNT,PLT 220 K/mm3 (182-369); RED BLOOD CELL COUNT 2.81 M/mm3 (3.98-5.22); WHITE BLOOD CELL COUNT,WBC 7.73 K/mm3 (3.98-10.04)
[2022-12-16 05:50] LABS: ANION GAP 12.3 (5-15); BUN/CREATININE RATIO 16.9 (14-18); CALCIUM 6.8 mg/dL (8.5-10.1); CREATININE 1.3 mg/dL (0.55-1.02); EST CRCL DRUG DOSING (CG) 23.55 mL/min; POTASSIUM,K 3.3 mEq/L (3.5-5.1)
[2022-12-16] MEDS: Cholestyramine/Sucrose Powder 4 GM Packet PO SCH ×2 (07:31→16:52)
[2022-12-16] MEDS: Midodrine 5 MG Tab PO SCH (07:31)
[2022-12-16] MEDS: Levothyroxine 88 MCG Tab PO SCH (07:31)
[2022-12-16] MEDS: Furosemide 20 MG Tab PO SCH (07:31)
[2022-12-16] MEDS: Potassium Chloride 10 MEQ in Premix Bag 1 BAG IV SCH ×4 (07:32→10:40)
[2022-12-16] MEDS: Insulin Lispro 100 Unit/ML 3 ML KwikPen SUBCUT SCH ×4 (07:32→21:13)
[2022-12-16] MEDS ORDERED: Levofloxacin/Dextrose 5%-Water 250 MG in Premix Bag 1 BAG IV SCH (08:00)
[2022-12-16] MEDS: predniSONE 20 MG Tab PO SCH (09:04)
[2022-12-16] MEDS: Sertraline 25 MG Tab PO SCH (09:04)
[2022-12-16] MEDS: Rivaroxaban 15 MG Tab PO SCH (09:04)
[2022-12-16] MEDS: traZODone 50 MG Tab PO SCH (20:39)
[2022-12-16] MEDS: atorvaSTATin 20 MG Tab PO SCH (20:39)
[2022-12-17 05:54] LABS: ANION GAP 10.9 (5-15); BUN/CREATININE RATIO 24.2 (14-18); CALCIUM 6.9 mg/dL (8.5-10.1); CREATININE 1.2 mg/dL (0.55-1.02); EST CRCL DRUG DOSING (CG) 25.51 mL/min; POTASSIUM,K 3.9 mEq/L (3.5-5.1)
[2022-12-17] MEDS: Levothyroxine 88 MCG Tab PO SCH (06:29)
[2022-12-17] MEDS: Furosemide 20 MG Tab PO SCH (06:29)
[2022-12-17] MEDS: Insulin Lispro 100 Unit/ML 3 ML KwikPen SUBCUT SCH ×2 (07:38→11:23)
[2022-12-17] MEDS: Cholestyramine/Sucrose Powder 4 GM Packet PO SCH (07:58)
[2022-12-17] MEDS ORDERED: Levofloxacin/Dextrose 5%-Water 250 MG in Premix Bag 1 BAG IV SCH (08:00)
[2022-12-17] MEDS: predniSONE 20 MG Tab PO SCH (08:02)
[2022-12-17] MEDS: Sertraline 25 MG Tab PO SCH (08:02)
[2022-12-17] MEDS: Rivaroxaban 15 MG Tab PO SCH (08:02)
[2022-12-17 12:32] VITALS: BP 102/65; PULSE 109
== END 2022-12-17 12:15 | DRG 871 ==
LOC: JD.ED 14:16 → JD.ICU 18:19
PROVIDERS: ADMIT Hospitalist; ATTEND Hospitalist
PROC: 3E033XZ Introduction of Vasopressor into Peripheral Vein, Percutaneous Approach (ICD-10-PCS; principal; 2022-12-10)
PROC: 3E03329 Introduction of Other Anti-infective into Peripheral Vein, Percutaneous Approach (ICD-10-PCS; 2022-12-10)
PROC: 02HV33Z Insertion of Infusion Device into Superior Vena Cava, Percutaneous Approach (ICD-10-PCS; 2022-12-10)
DX: A41.51 Sepsis due to Escherichia coli [E. coli] (principal); R65.21 Severe sepsis with septic shock; J90 Pleural effusion, not elsewhere classified; N39.0 Urinary tract infection, site not specified; N17.9 Acute kidney failure, unspecified; E87.1 Hypo-osmolality and hyponatremia; I11.0 Hypertensive heart disease with heart failure; I50.9 Heart failure, unspecified; Z20.822 Contact with and (suspected) exposure to COVID-19; E11.9 Type 2 diabetes mellitus without complications; E03.9 Hypothyroidism, unspecified; E78.00 Pure hypercholesterolemia, unspecified; E66.9 Obesity, unspecified; M19.90 Unspecified osteoarthritis, unspecified site; I95.9 Hypotension, unspecified; F03.90 Unspecified dementia, unspecified severity, without behavioral disturbance, psychotic disturbance, mood disturbance, and anxiety; E87.6 Hypokalemia; I48.0 Paroxysmal atrial fibrillation; Z68.31 Body mass index [BMI] 31.0-31.9, adult; Z79.899 Other long term (current) drug therapy; Z79.84 Long term (current) use of oral hypoglycemic drugs; Z88.8 Allergy status to other drugs, medicaments and biological substances; Z79.01 Long term (current) use of anticoagulants; Z86.711 Personal history of pulmonary embolism; Z86.010 Personal history of colon polyps; Z98.49 Cataract extraction status, unspecified eye; Z90.49 Acquired absence of other specified parts of digestive tract
CPT/HCPCS: 36415; 71045; 71045-26; 74176; 74176-26; 80048; 80053; 80202; 81001; 82947; 83605; 83735; 84484; 85007; 85025; 85027; 85610; 86140; 87040; 87086; 87088; 87186; 92526-GN; 92610-GN; 93005; 93010; 97110-GP; 97162-GP; 97530-GP; 99285; A9270-GY; J1644; J1815; J1940; J1956; J2370; J2543; J3370; J3480; J3490; J7030; J7042; J7050; J7120; J7512; U0002

== ENCOUNTER 2023-03-03 13:28 | Inpatient (IN) | payer MEDICARE, OTHER, MEDICAID ==
[2023-03-03] MEDS ORDERED: Sodium Chloride 0.9% 10 ML Syringe FLUSH PRN ×2 (14:06→15:56)
[2023-03-03] MEDS ORDERED: Lactated Ringers 1,000 ML IV SCH ×2 (14:15→15:45)
[2023-03-03 14:17] LABS: BASOPHILS ABSOLUTE AUTO 0.1 K/mm3 (0.0-0.2); BASOPHILS PERCENT AUTO 0.3 % (0.0-1.0); HEMATOCRIT 35.1 % (37.0-47.0); HEMOGLOBIN 11.4 gm/dl (12.0-16.0); IMMATURE GRAN ABSOLUTE AUTO 0.12 K/mm3 (0.00-0.05); IMMATURE GRAN PERCENT AUTO 0.6 % (0.0-0.4); LYMPHOCYTES PERCENT AUTO 4.8 % (24.0-44.0); MEAN CORPUSCULAR HEMOGLOBIN 33.4 pg (28.0-32.0); MEAN CORPUSCULAR HGB CONC 32.5 g/dl (32.0-36.0); MEAN CORPUSCULAR VOLUME 102.9 fl (83.0-99.0); MEAN PLATELET VOLUME 9.8 fl (9.4-12.3); NEUTROPHILS ABSOLUTE AUTO 18.3 K/mm3 (1.8-7.7); NEUTROPHILS PERCENT AUTO 89.3 % (41.0-71.0); PLATELET COUNT,PLT 328 K/mm3 (150-400); RED BLOOD CELL COUNT 3.41 M/mm3 (4.10-5.30); WHITE BLOOD CELL COUNT,WBC 20.47 K/mm3 (3.9-11.3)
[2023-03-03 14:38] LABS: A/G RATIO 0.6 (1-2); ALBUMIN 2.4 g/dl (3.4-5.0); BILIRUBIN TOTAL 0.7 mg/dL (0.2-1.0); BUN/CREATININE RATIO 17.9 (14-18); CALCIUM 9.3 mg/dL (8.5-10.1); CREATININE 1.4 mg/dL (0.55-1.02); EST CRCL DRUG DOSING (CG) 21.87 mL/min; PROTEIN TOTAL,TP 6.7 g/dl (6.4-8.2); TSH 9.701 uIU/mL (0.358-3.74)
[2023-03-03 14:39] LABS: C-REACTIVE PROTEIN 15.3 mg/dL (<1.0)
[2023-03-03 14:47] LABS: APPEARANCE,URINE CLOUDY (Clear); BILIRUBIN,URINE NEGATIVE (Negative); COLOR,URINE DARK YELLOW (Yellow); GLUCOSE,URINE NEGATIVE (Negative); KETONES,URINE TRACE (Negative); LEUKOCYTE ESTERASE,URINE TRACE (Negative); NITRITE,URINE NEGATIVE (Negative); OCCULT BLOOD,URINE TRACE-INTACT (Negative); PROTEIN,URINE 2+ (Negative); UROBILINOGEN,URINE 0.2 (0.2-1.0)
[2023-03-03 14:59] LABS: BACTERIA,URINE MANY /hpf (FEW); EPITHELIAL CELLS,URINE NOT SEEN /hpf (0-5); MUCUS,URINE RARE /hpf (FEW); RBC,URINE 0-5 /hpf (0-5)
[2023-03-03] MEDS ORDERED: Diltiazem 25 MG/5 ML SDV IVPUSH ONE ×2 (15:11→15:33)
[2023-03-03] MEDS ORDERED: Piperacillin/Tazobactam 4.5 GM in Sodium Chloride 0.9% 100 ML IV ONE (15:13)
[2023-03-03] MEDS ORDERED: Diltiazem 125 MG in Sodium Chloride 0.9% 100 ML IV SCH (15:30)
[2023-03-03] MEDS ORDERED: Ondansetron 4 MG/2 ML SDV IV PRN (15:56)
[2023-03-03] MEDS ORDERED: Polyethylene Glycol 3350 Powder 17 GM Packet PO PRN (15:56)
[2023-03-03] MEDS ORDERED: Ondansetron 4 MG Tab.DIS PO PRN (15:56)
[2023-03-03] MEDS ORDERED: Acetaminophen 325 MG Tab PO PRN (15:56)
[2023-03-03] MEDS ORDERED: Heparin Sodium 5,000 Units/ML Vial SUBCUT SCH (16:00)
[2023-03-03] MEDS ORDERED: Magnesium Sulfate/Water 2 GM in Premix Bag 1 BAG IV ONE (16:34)
[2023-03-03] MEDS ORDERED: Ondansetron 4 MG/2 ML SDV ONE (17:22)
[2023-03-03] MEDS ORDERED: LORazepam 2 MG/ML SDV IVPUSH ONE (17:26)
[2023-03-03 17:56] LABS: LACTIC ACID 3.2 mmol/L (0.4-2.0)
[2023-03-03] MEDS ORDERED: Lactated Ringers 1,000 ML IV ONE ×2 (18:03)
[2023-03-03 18:06] LABS: CORONAVIRUS COVID-19 NAA NEGATIVE (NEGATIVE); INFLUENZA A NAA NEGATIVE (NEGATIVE)
[2023-03-03] MEDS: Diltiazem IR 30 MG Tab PO SCH ×2 (18:15→20:42)
[2023-03-03] MEDS ORDERED: Flumazenil 0.1 MG/ML 5 ML MDV ONE (18:21)
[2023-03-03] MEDS: Piperacillin/Tazobactam 4.5 GM in Sodium Chloride 0.9% 100 ML IV SCH (19:20)
[2023-03-03] MEDS: Lactated Ringers 1,000 ML IV SCH (20:30)
[2023-03-03] MEDS ORDERED: atorvaSTATin 20 MG Tab PO SCH (21:00)
[2023-03-03] MEDS: Rivaroxaban 15 MG Tab PO SCH (21:02)
[2023-03-03] MEDS: Insulin Lispro 100 Unit/ML 3 ML KwikPen SUBCUT SCH ×2 (21:13→21:15)
[2023-03-03] MEDS: CHOLESTYRAMINE 5 GM PO SCH (21:14)
[2023-03-03] MEDS: CLOTRIMAZOLE TRDERM SCH (21:16)
[2023-03-04] MEDS: Piperacillin/Tazobactam 4.5 GM in Sodium Chloride 0.9% 100 ML IV SCH ×3 (00:26→15:56)
[2023-03-04] MEDS: Diltiazem IR 30 MG Tab PO SCH ×4 (00:28→17:39)
[2023-03-04] MEDS: Lactated Ringers 1,000 ML IV SCH ×2 (04:32→12:30)
[2023-03-04 05:26] LABS: BASOPHILS ABSOLUTE AUTO 0.1 K/mm3 (0.0-0.2); BASOPHILS PERCENT AUTO 0.3 % (0.0-1.0); EOSINOPHILS PERCENT AUTO 0.1 % (0.0-6.0); HEMATOCRIT 26.9 % (37.0-47.0); IMMATURE GRAN ABSOLUTE AUTO 0.12 K/mm3 (0.00-0.05); IMMATURE GRAN PERCENT AUTO 0.7 % (0.0-0.4); LYMPHOCYTES PERCENT AUTO 11.1 % (24.0-44.0); MEAN CORPUSCULAR HEMOGLOBIN 33.3 pg (28.0-32.0); MEAN CORPUSCULAR HGB CONC 32.7 g/dl (32.0-36.0); MEAN CORPUSCULAR VOLUME 101.9 fl (83.0-99.0); MONOCYTES ABSOLUTE AUTO 0.9 K/mm3 (0.0-0.8); MONOCYTES PERCENT AUTO 5.1 % (0.0-8.0); NEUTROPHILS ABSOLUTE AUTO 14.6 K/mm3 (1.8-7.7); NEUTROPHILS PERCENT AUTO 82.7 % (41.0-71.0); PLATELET COUNT,PLT 264 K/mm3 (150-400); RED BLOOD CELL COUNT 2.64 M/mm3 (4.10-5.30); WHITE BLOOD CELL COUNT,WBC 17.67 K/mm3 (3.9-11.3)
[2023-03-04 05:30] LABS: HEMOGLOBIN 8.8 gm/dl (12.0-16.0)
[2023-03-04 05:46] LABS: A/G RATIO 0.5 (1-2); ALBUMIN 1.7 g/dl (3.4-5.0); ANION GAP 12.8 (5-15); BILIRUBIN TOTAL 0.8 mg/dL (0.2-1.0); CALCIUM 8.6 mg/dL (8.5-10.1); CREATININE 1.1 mg/dL (0.55-1.02); EST CRCL DRUG DOSING (CG) 32.06 mL/min; POTASSIUM,K 3.8 mEq/L (3.5-5.1); PROTEIN TOTAL,TP 5.3 g/dl (6.4-8.2)
[2023-03-04 06:54] LABS: LACTIC ACID 1.2 mmol/L (0.4-2.0)
[2023-03-04] MEDS: CHOLESTYRAMINE 5 GM PO SCH (08:41)
[2023-03-04] MEDS: Rivaroxaban 15 MG Tab PO SCH (08:42)
[2023-03-04] MEDS: CLOTRIMAZOLE TRDERM SCH (08:42)
[2023-03-04] MEDS: Insulin Lispro 100 Unit/ML 3 ML KwikPen SUBCUT SCH ×4 (08:47→20:14)
[2023-03-04] MEDS ORDERED: CLOTRIMAZOLE TOP SCH (09:00)
[2023-03-04] MEDS ORDERED: Rivaroxaban 15 MG Tab PO SCH (09:00)
[2023-03-04] MEDS ORDERED: Levothyroxine 88 MCG Tab PO SCH ×2 (09:00)
[2023-03-04] MEDS ORDERED: CHOLESTYRAMINE 5 GM PO SCH (17:00)
[2023-03-04] MEDS ORDERED: atorvaSTATin 20 MG Tab PO SCH (21:00)
[2023-03-05] MEDS: Diltiazem IR 30 MG Tab PO SCH ×4 (00:20→17:12)
[2023-03-05] MEDS: Piperacillin/Tazobactam 4.5 GM in Sodium Chloride 0.9% 100 ML IV SCH ×3 (00:34→15:10)
[2023-03-05 05:30] LABS: BASOPHILS PERCENT AUTO 0.3 % (0.0-1.0); EOSINOPHILS PERCENT AUTO 0.1 % (0.0-6.0); HEMATOCRIT 25.7 % (37.0-47.0); HEMOGLOBIN 8.5 gm/dl (12.0-16.0); IMMATURE GRAN PERCENT AUTO 0.7 % (0.0-0.4); LYMPHOCYTES ABSOLUTE AUTO 1.5 K/mm3 (1.0-4.8); LYMPHOCYTES PERCENT AUTO 10.9 % (24.0-44.0); MEAN CORPUSCULAR HEMOGLOBIN 33.6 pg (28.0-32.0); MEAN CORPUSCULAR HGB CONC 33.1 g/dl (32.0-36.0); MEAN CORPUSCULAR VOLUME 101.6 fl (83.0-99.0); MEAN PLATELET VOLUME 10.1 fl (9.4-12.3); MONOCYTES ABSOLUTE AUTO 0.8 K/mm3 (0.0-0.8); MONOCYTES PERCENT AUTO 5.6 % (0.0-8.0); NEUTROPHILS ABSOLUTE AUTO 11.5 K/mm3 (1.8-7.7); NEUTROPHILS PERCENT AUTO 82.4 % (41.0-71.0); PLATELET COUNT,PLT 243 K/mm3 (150-400); RED BLOOD CELL COUNT 2.53 M/mm3 (4.10-5.30); WHITE BLOOD CELL COUNT,WBC 13.95 K/mm3 (3.9-11.3)
[2023-03-05 05:34] LABS: A/G RATIO 0.4 (1-2); ALBUMIN 1.5 g/dl (3.4-5.0); ANION GAP 13.1 (5-15); BILIRUBIN TOTAL 0.7 mg/dL (0.2-1.0); BUN/CREATININE RATIO 19.1 (14-18); CALCIUM 8.3 mg/dL (8.5-10.1); CREATININE 1.1 mg/dL (0.55-1.02); EST CRCL DRUG DOSING (CG) 32.06 mL/min; POTASSIUM,K 3.1 mEq/L (3.5-5.1); PROTEIN TOTAL,TP 4.9 g/dl (6.4-8.2)
[2023-03-05] MEDS: Insulin Lispro 100 Unit/ML 3 ML KwikPen SUBCUT SCH ×4 (06:49→21:24)
[2023-03-05] MEDS: Potassium Chloride 20 MEQ Tab.ER PO SCH ×2 (13:28→15:27)
[2023-03-05] MEDS: Heparin Sodium 5,000 Units/ML Vial SUBCUT SCH ×2 (13:28→21:22)
[2023-03-05] MEDS: Potassium Chloride 10 MEQ in Premix Bag 1 BAG IV SCH ×2 (15:15→17:11)
[2023-03-06] MEDS ORDERED: Loperamide 2 MG Cap PO PRN (00:28)
[2023-03-06] MEDS ORDERED: Furosemide 20 MG/2 ML VIAL IVPUSH ONE (00:33)
[2023-03-06] MEDS: Piperacillin/Tazobactam 4.5 GM in Sodium Chloride 0.9% 100 ML IV SCH ×2 (00:46→08:00)
[2023-03-06] MEDS: Diltiazem IR 30 MG Tab PO SCH ×3 (00:47→11:43)
[2023-03-06] MEDS: Heparin Sodium 5,000 Units/ML Vial SUBCUT SCH ×2 (03:23→11:42)
[2023-03-06] MEDS: Insulin Lispro 100 Unit/ML 3 ML KwikPen SUBCUT SCH ×2 (06:51→11:48)
[2023-03-06] MEDS ORDERED: Diltiazem IR 30 MG Tab PO ONE (09:00)
[2023-03-06 09:27] VITALS: PULSE 75
[2023-03-06 11:51] VITALS: BP 112/75
== END 2023-03-06 13:34 | DRG 871 ==
LOC: JD.ED 13:28 → JD.ICU 15:56
PROVIDERS: ADMIT Hospitalist; ATTEND Hospitalist
DX: A41.51 Sepsis due to Escherichia coli [E. coli] (principal); R65.21 Severe sepsis with septic shock; N39.0 Urinary tract infection, site not specified; E86.0 Dehydration; Z20.822 Contact with and (suspected) exposure to COVID-19; F03.C11 Unspecified dementia, severe, with agitation; E11.51 Type 2 diabetes mellitus with diabetic peripheral angiopathy without gangrene; I48.91 Unspecified atrial fibrillation; F03.C0 Unspecified dementia, severe, without behavioral disturbance, psychotic disturbance, mood disturbance, and anxiety; Z66 Do not resuscitate; E83.42 Hypomagnesemia; B96.89 Other specified bacterial agents as the cause of diseases classified elsewhere; E87.70 Fluid overload, unspecified; E11.9 Type 2 diabetes mellitus without complications; I10 Essential (primary) hypertension; E78.00 Pure hypercholesterolemia, unspecified; I73.9 Peripheral vascular disease, unspecified; M19.90 Unspecified osteoarthritis, unspecified site; E66.9 Obesity, unspecified; E03.9 Hypothyroidism, unspecified; Z79.01 Long term (current) use of anticoagulants; Z98.49 Cataract extraction status, unspecified eye; Z90.49 Acquired absence of other specified parts of digestive tract; Z86.711 Personal history of pulmonary embolism; Z79.84 Long term (current) use of oral hypoglycemic drugs; Z79.899 Other long term (current) drug therapy; Z88.8 Allergy status to other drugs, medicaments and biological substances; Z98.890 Other specified postprocedural states; Z68.25 Body mass index [BMI] 25.0-25.9, adult; Z11.52 Encounter for screening for COVID-19
CPT/HCPCS: 0240U; 36415; 51702; 71045; 80053; 81001; 82947; 83605; 83735; 83880; 84145; 84443; 85025; 86140; 87040; 87086; 87088; 87186; 93005; 96361; 96374; 97162; 99285; 93010; 99223; 99232; 99233; 99239; A9270-GY; J1644; J1815; J1940; J2060; J2405; J2543; J3475; J3480; J3490; J7120